=== PATIENT | male | born 1945 | race Caucasian/White ===

== ENCOUNTER 2016-09-09 21:19 | Inpatient (IN) | payer MEDICARE, OTHER ==
[2016-09-09] MEDS ORDERED: Ondansetron INJ* 2 MG/ML VIAL IV ONE (21:52)
[2016-09-09] MEDS ORDERED: NS 0.9% 1000 ML* 1,000 ML IV ONE (21:52)
[2016-09-09 22:36] LABS: Hematocrit 44 % (42-52); Hemoglobin 14.5 g/dl (14.0-18.0); Mean Corpuscular HGB Conc 33 g/dl (31-36); Mean Corpuscular Hemoglobin 30 pg (27-31); Mean Corpuscular Volume 90 fL (80-94); Mean Platelet Volume 8 um3 (7.4-10.4); Red Blood Count 4.88 10^6/ul (4.0-5.4); Red Cell Distribution Width 15 % (10.5-15); White Blood Count 10.3 10^3/ul (3.5-10.8)
[2016-09-09 22:49] LABS: ALT 13 U/L (7-52); AST 21 U/L (13-39); Albumin 3.8 g/dL (3.2-5.2); Alkaline Phosphatase 134 U/L (34-104); Anion Gap 2 mmol/L (2-11); BUN/Creatinine Ratio 21.3 (8-20); Blood Urea Nitrogen 16 mg/dL (6-24); C Reactive Protein 35.47 mg/L (< 5.00); CO2 Carbon Dioxide 34 mmol/L (22-32); Calcium 9.2 mg/dL (8.6-10.3); Chloride 100 mmol/L (101-111); EGFR African American 132.8 (>60); EGFR Non-African American 103.3 (>60); Globulin 3.3 g/dL (2-4); Glucose 74 mg/dL (70-100); Lipase < 10 U/L (11.0-82.0); Magnesium 1.9 mg/dL (1.9-2.7); Potassium 4.3 mmol/L (3.5-5.0); Sodium 136 mmol/L (133-145); Total Protein 7.1 g/dL (6.4-8.9)
--- NOTE | 2016-09-09 23:03 | ED ---
annalee Garrison Timothy, scribed for Stuart Brewer MD on 09/09/16 at 2154 . GI/ HPI - HPI Summary HPI Summary: Favian Cannon is a 71 yo male presenting to [facility] with 6/10 abd pain and blood in stool 7x since 1200 this morning. He denies any Hx of similar Sx. He also c/ o dizziness S/P BM's. He states he was nauseous last night, but not now. He states he has not been taking prescribed medications as he hs felt sick. He denies any Hx of similar Sx. His Mhx includes emphysema, GERD, and depression. - History of Current Complaint Chief Complaint: EDGIBleed Time Seen by Provider: 09/09/16 21:49 Stated Complaint: BLOOD IN STOOL Hx Obtained From: Patient Onset/Duration: Started Hours Ago Timing: Constant Severity: Moderate Current Severity: Moderate Pain Intensity: 6 Location of Pain: Diffuse Associated Signs and Symptoms: Positive: Dizziness, Nausea, Blood w/Stool, Abdominal Pain - Allergy/Home Medications Allergies/Adverse Reactions: Allergies Allergy/AdvReac Type Severity Reaction Status Date / Time No Known Allergies Allergy Verified 03/11/13 10:49 PMH/Surg Hx/FS Hx/Imm Hx Endocrine/Hematology History: Denies: Hx Sickle Cell Disease Cardiovascular History: Denies: Other Cardiovascular Problems/Disorders GI History: Reports: Hx Gastroesophageal Reflux Disease - ON MEDICATION History: Denies: Other Problems/Disorders Musculoskeletal History: Reports: Hx Arthritis Sensory History: Reports: Hx Cataracts - RIGHT EYE Denies: Hx Contacts or Glasses, Hx Hearing Aid Opthamlomology History: Reports: Hx Cataracts - RIGHT EYE Denies: Hx Contacts or Glasses Psychiatric History: Reports: Hx Depression - ON MEDICATION - Surgical History Surgery Procedure, Year, and Place: LEFT EYE CATARACT - 7 YEARS AGO [facility] [place], [place] Hx Anesthesia Reactions: No Infectious Disease History: No Infectious Disease History: Denies: Traveled Outside the [place] in Last 30 Days - Family History Known Family History: Positive: Cardiac Disease, Hypertension Negative: Diabetes - Social History Substance Use Type: Reports: None Review of Systems Constitutional: Negative Eyes: Negative ENT: Negative Cardiovascular: Negative Respiratory: Negative Positive: Abdominal Pain, Nausea, Other - blood in stool Genitourinary: Negative Musculoskeletal: Negative Skin: Negative Neurological: Other - dizziness Psychological: Normal All Other Systems Reviewed And Are Negative: Yes Physical Exam Triage Information Reviewed: Yes Vital Signs On Initial Exam: Initial Vitals Temp Pulse Resp BP Pulse Ox 98.3 F 74 20 142/72 93 09/09/16 21:22 09/09/16 21:22 09/09/16 21:22 09/09/16 21:22 09/09/16 21:22 Vital Signs Reviewed: Yes Appearance: Positive: Well-Appearing, No Pain Distress Skin: Positive: Warm Head/Face: Positive: Normal Head/Face Inspection Eyes: Positive: TAISHA ENT: Positive: Hearing grossly normal Neck: Positive: Supple, Nontender Respiratory/Lung Sounds: Positive: Decreased Breath Sounds Cardiovascular: Positive: RRR Abdomen Description: Positive: Nontender, Soft Bowel Sounds: Positive: Present, Other - guaic pos Musculoskeletal: Positive: Strength/ROM Intact Neurological: Positive: Sensory/Motor Intact Diagnostics - Vital Signs Vital Signs Temp Pulse Resp BP Pulse Ox 09/09/16 21:22 98.3 F 74 20 142/72 93 - Laboratory Lab Results: Lab Results 09/09/16 09/09/16 09/09/16 Range/Units 22:29 22:29 22:29 WBC 10.3 (3.5-10.8) 10^3/ul RBC 4.88 (4.0-5.4) 10^6/ul Hgb 14.5 (14.0-18.0) g/dl Hct 44 (42-52) % MCV 90 (80-94) fL MCH 30 (27-31) pg MCHC 33 (31-36) g/dl RDW 15 (10.5-15) % Plt Count 180 (150-450) 10^3/ul MPV 8 (7.4-10.4) um3 Neut % (Auto) 73.5 (38-83) % Lymph % (Auto) 16.8 L (25-47) % Jenkins % (Auto) 6.5 (1-9) % Eos % (Auto) 2.3 (0-6) % Baso % (Auto) 0.9 (0-2) % Absolute Neuts (auto) 7.5 (1.5-7.7) 10^3/ul Absolute Lymphs (auto) 1.7 (1.0-4.8) 10^3/ul Absolute Monos (auto) 0.7 (0-0.8) 10^3/ul Absolute Eos (auto) 0.2 (0-0.6) 10^3/ul Absolute Basos (auto) 0.1 (0-0.2) 10^3/ul Absolute Nucleated RBC 0 10^3/ul Nucleated RBC % 0 INR (Anticoag Therapy) 0.98 (0.89-1.11) Sodium 136 (133-145) mmol/L Potassium 4.3 (3.5-5.0) mmol/L Chloride 100 L (101-111) mmol/L Carbon Dioxide 34 H (22-32) mmol/L Anion Gap 2 (2-11) mmol/L BUN 16 (6-24) mg/dL Creatinine 0.75 (0.67-1.17) mg/dL Est GFR ( Amer) 132.8 (>60) Est GFR (Non-Af Amer) 103.3 (>60) BUN/Creatinine Ratio 21.3 H (8-20) Glucose 74 (70-100) mg/dL Lactic Acid (0.5-2.0) mmol/L Calcium 9.2 (8.6-10.3) mg/dL Magnesium 1.9 (1.9-2.7) mg/dL Total Bilirubin 0.40 (0.2-1.0) mg/dL AST 21 (13-39) U/L ALT 13 (7-52) U/L Alkaline Phosphatase 134 H (34-104) U/L C-Reactive Protein 35.47 H (< 5.00) mg/L Total Protein 7.1 (6.4-8.9) g/dL Albumin 3.8 (3.2-5.2) g/dL Globulin 3.3 (2-4) g/dL Albumin/Globulin Ratio 1.2 (1-3) Lipase < 10 L (11.0-82.0) U/L Blood Type Antibody Screen 09/09/16 09/09/16 Range/Units 22:29 22:29 WBC (3.5-10.8) 10^3/ul RBC (4.0-5.4) 10^6/ul Hgb (14.0-18.0) g/dl Hct (42-52) % MCV (80-94) fL MCH (27-31) pg MCHC (31-36) g/dl RDW (10.5-15) % Plt Count (150-450) 10^3/ul MPV (7.4-10.4) um3 Neut % (Auto) (38-83) % Lymph % (Auto) (25-47) % Jenkins % (Auto) (1-9) % Eos % (Auto) (0-6) % Baso % (Auto) (0-2) % Absolute Neuts (auto) (1.5-7.7) 10^3/ul Absolute Lymphs (auto) (1.0-4.8) 10^3/ul Absolute Monos (auto) (0-0.8) 10^3/ul Absolute Eos (auto) (0-0.6) 10^3/ul Absolute Basos (auto) (0-0.2) 10^3/ul Absolute Nucleated RBC 10^3/ul Nucleated RBC % INR (Anticoag Therapy) (0.89-1.11) Sodium (133-145) mmol/L Potassium (3.5-5.0) mmol/L Chloride (101-111) mmol/L Carbon Dioxide (22-32) mmol/L Anion Gap (2-11) mmol/L BUN (6-24) mg/dL Creatinine (0.67-1.17) mg/dL Est GFR ( Amer) (>60) Est GFR (Non-Af Amer) (>60) BUN/Creatinine Ratio (8-20) Glucose (70-100) mg/dL Lactic Acid 1.0 (0.5-2.0) mmol/L Calcium (8.6-10.3) mg/dL Magnesium (1.9-2.7) mg/dL Total Bilirubin (0.2-1.0) mg/dL AST (13-39) U/L ALT (7-52) U/L Alkaline Phosphatase (34-104) U/L C-Reactive Protein (< 5.00) mg/L Total Protein (6.4-8.9) g/dL Albumin (3.2-5.2) g/dL Globulin (2-4) g/dL Albumin/Globulin Ratio (1-3) Lipase (11.0-82.0) U/L Blood Type O Negative Antibody Screen Negative Result Diagrams: 09/09/16 22:29 09/09/16 22:29 Lab Statement: Any lab studies that have been ordered have been reviewed, and results considered in the medical decision making process. - Radiology CXR Xray Interpretation: Positive (See Comments) - Hyperinflation consistent with COPD Radiology Interpretation Completed By: ED Physician Re-Evaluation - Re-Evaluation First Eval Re-Evaluation Time: 02:55 Change: Unchanged Comment: Discussed current course of Tx and disposition with Pt. Pt is agreeable. GIGU Course/Dx - Course Assessment/Plan: Favian Cannon is a 71 yo male presenting to [facility] with blood in stool and 6/10 abdominal pain since 1200 today. After review of his lab work and discussion with Dr. Bajwa, he will be admitted to [facility] [place] [place]. - Diagnoses Provider Diagnoses: COPD exacerbation, GI bleed - Physician Notifications Discussed Care Of Patient With: 0250 - [facility] - Discussed Pt condition, agrees to admit Pt. Instructed by Provider To: Admit As Inpatient - Critical Care Time Critical Care Time: 30-74 min Discharge - Discharge Plan Condition: Fair Disposition: ADMITTED TO [facility] Referrals: Luis E Garcia MD [Primary Care Provider] - The documentation as recorded by the annalee muniz Timothy accurately reflects the service I personally performed and the decisions made by me, Stuart Brewer MD.
[2016-09-10 00:52] LABS: PCO2 Arterial 59 mmHg (35-45)
[2016-09-10] MEDS ORDERED: methylPREDNISolone 125 MG* 2 ML VIAL IV ONE (00:55)
[2016-09-10] MEDS: Albuterol/Ipratropium NEB.SOL* Albuterol 2.5 MG/Ipratropium 0.5 MG 3 ML INH ONE ×2 (01:01→03:00)
[2016-09-10 02:50] LABS: PCO2 Arterial 57 mmHg (35-45)
[2016-09-10] MEDS ORDERED: Albuterol/Ipratropium NEB.SOL* Albuterol 2.5 MG/Ipratropium 0.5 MG 3 ML ONE (02:56)
[2016-09-10] MEDS ORDERED: Albuterol/Ipratropium NEB.SOL* Albuterol 2.5 MG/Ipratropium 0.5 MG 3 ML INH ONE (03:04)
[2016-09-10] MEDS ORDERED: Acetaminophen TAB* 325 MG PO PRN (04:48)
[2016-09-10] MEDS ORDERED: Albuterol/Ipratropium NEB.SOL* Albuterol 2.5 MG/Ipratropium 0.5 MG 3 ML INH PRN (04:49)
[2016-09-10] MEDS: Heparin VIAL(*) 5000 UNITS/ML VIAL (FIVE THOUSAND) SUBCUT SCH ×2 (06:13→14:22)
[2016-09-10 06:47] LABS: Hematocrit 42 % (42-52); Hemoglobin 13.7 g/dl (14.0-18.0)
--- NOTE | 2016-09-10 08:00 | RAD ---
INDICATION: Shortness of breath. COMPARISON: Chest x-ray dated January 08, 2006 TECHNIQUE: PA and lateral views of the chest were obtained. FINDINGS: The heart and mediastinum are normal in size and contour. There is mild calcification overlying the arch of the aorta. Subcentimeter dense foci overlying the right greater than left skylar are most consistent with calcified granulomas. Otherwise the lungs are grossly clear. There is no evidence of large pleural effusion. Visualized bones are normal for the patient's age. There is no radiographic evidence of free air beneath the diaphragm IMPRESSION: No radiographic evidence of acute cardiopulmonary disease.
[2016-09-10 08:20] LABS: Urine Bilirubin Negative (Negative); Urine Glucose Negative (Negative); Urine Nitrite Negative (Negative)
[2016-09-10] MEDS: Gabapentin CAP(*) 300 MG PO SCH (08:33)
[2016-09-10] MEDS: Omeprazole CAP* 20 MG PO SCH (08:33)
[2016-09-10] MEDS: LORazepam TAB(*) 0.5 MG PO SCH (08:34)
[2016-09-10] MEDS: Citalopram TAB* 40 MG PO SCH (08:34)
[2016-09-10] MEDS ORDERED: Methadone TAB* 10 MG PO SCH (09:00)
--- NOTE | 2016-09-10 10:08 | HP ---
DATE OF ADMISSION: 09/10/2016 CHIEF COMPLAINT: Bright red blood from his stool. HISTORY OF PRESENT ILLNESS: The patient is a 71-year-old gentleman who said this morning he was having bowel movements when he noticed blood in his stool. Apparently, he had 6 or 7 bowel movements with quite a bit of blood in them. He became concerned so he came to the ER. He also had associated lower abdominal pain, but no nausea or vomiting. He felt chills, but does not think he had a fever. He notes he has had a decreased appetite as well today. The last time he ate was 7:30 the night before and was only a bowl of cereal. He does get colonoscopies regularly. In the ED, the patient was evaluated and did not have any problems with his bowel movements while here and his hemoglobin was 14.5. Initially, they did not think he was going to need to stay , but then noticed his oxygen saturation was quite low in the low 70s. He responded well to supplemental oxygen, however, and apparently he was also wheezing. The patient does smoke quite a bit. Despite nebulizer treatments in August, the patient was still somewhat hypoxemic and is being admitted for same. PAST MEDICAL HISTORY: Significant for chronic pain syndrome, depression, GERD, COPD. PAST SURGICAL HISTORY: Significant for condyloma excision in the right inguinal area and cataracts bilaterally. ALLERGIES: He has no known drug allergies. CURRENT MEDICATIONS: Omeprazole 20 mg daily, methadone 20 mg daily, lorazepam 0.5 mg daily, gabapentin 300 mg daily, and citalopram 40 mg daily, albuterol inhaler unknown dose and frequency, as well as Advair inhaler unknown dose and frequency. FAMILY HISTORY: Reviewed and noncontributory. SOCIAL HISTORY: Still smokes a pack per day, but denies need for nicotine patch at this time. Drinks alcohol but not excessively. No recreational drug use. 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 He is a . He has 2 children. His son, Favian Cannon, is his healthcare proxy. REVIEW OF SYSTEMS: A 14-point review of systems was completed with the patient. All pertinent positives and negatives are in the history of present illness, otherwise is negative. PHYSICAL EXAMINATION GENERAL: A pleasant gentleman, lying in bed, in no acute distress. VITAL SIGNS: Blood pressure 117/72, pulse ox is now 96% on 3 L. Respiratory rate 18 breaths per minute, heart rate 80 beats per minute, temperature 98.2 degrees. HEENT: Normocephalic, atraumatic. Pupils are equal, round, and reactive to light. Moist mucous membranes. NECK: Supple. No JVD, bruits, or palpable thyroid. CHEST: He has decreased breath sounds with some minimal bilateral wheezing. CARDIOVASCULAR: S1, S2, appreciated. Regular rate and rhythm. ABDOMEN: Positive bowel sounds in all 4 quadrants. Soft, nontender, and nondistended. No hepatosplenomegaly. EXTREMITIES: No cyanosis, clubbing, or edema; +2 peripheral pulses bilaterally. NEURO: Alert and oriented x3. Moves all extremities. SKIN: No rashes or abnormalities. DIAGNOSTIC STUDIES/LAB DATA: White count 10.3, hemoglobin 14.5, hematocrit 44 , platelets 180. Sodium 136, potassium 4.3, chloride 102, CO2 34, BUN 16, creatinine 0.75, glucose is 74. INR is 0.98. Blood gases were 7.37 with a pCO2 of 57, and PO2 of 46. Chest x-ray shows hyperaeration but no evidence of infiltrates, some bilateral lymphadenopathy. This is a preliminary reading. ASSESSMENT AND PLAN: 1. GI bleed. The patient is not anemic despite several bloody bowel movements. It very well could just be a hemorrhoid. We will monitor his H and H and get the records of his last colonoscopy and upper endoscopy before contacting GI. If his blood count does not drop that much more, he probably does not need intervention. 2. COPD. The patient is wheezing somewhat. We will put him on Solu-Medrol 40 IV q.12 h. and nebulizers, but he will probably likely end up needing home oxygen. 3. Depression, stable. Continue current regimen. 4. Chronic pain. Continue methadone and gabapentin. 5. GERD. Continue omeprazole. 6. DVT prophylaxis. Heparin subcu. 7. FEN. Regular diet. 8. The patient is a full code. TIME SPENT: Over 75 minutes was spent on this H and P; more than 40 minutes of which was spent in direct [id number] contact with the patient in evaluation, physical exam, counseling, and coordination of care. CC: Dr. Luis E Garcia* [id number]/[facility] #: [id number] [facility]
[2016-09-10 13:09] LABS: Hematocrit 43 % (42-52); Hemoglobin 13.8 g/dl (14.0-18.0)
[2016-09-10] MEDS: methylPREDNISolone SOD 40 MG* 1 ML VIAL IV SCH (14:22)
--- NOTE | 2016-09-10 16:17 | PN ---
Subjective Date of Service: 09/10/16 Interval History: Patient seen and examined at bedside. Pt states that he continues to have some rectal bleeding, he denies hemorrhoids, but reports straining to move his bowels. Denies fever, chills, shortness of breath, chest discomfort, N/V/D. Pt doesn't wean O2 at home, but is requiring supplemental O2 here. Family History: Unchanged from Admission Social History: Unchanged from Admission Past Medical History: Unchanged from Admission Objective Active Medications: Acetaminophen (Tylenol Tab*) 650 mg PO Q4H PRN Reason: FEVER/PAIN Albuterol/Ipratropium (Duoneb Neb.Fern*) 1 neb INH Q2H PRN Reason: SOB/WHEEZING Citalopram Hydrobromide (Celexa Tab*) 40 mg PO DAILY BETO Gabapentin (Neurontin Cap(*)) 300 mg PO DAILY BETO Heparin Sodium (Porcine) (Heparin Vial(*)) 5,000 units SUBCUT Q8HR BETO Lorazepam (Ativan Tab(*)) 0.5 mg PO DAILY BETO Methadone HCl (Dolophine Tab*) 20 mg PO DAILY [facility] Methylprednisolone Sodium Succinate (Solu-Medrol*) 40 mg IV Q12H BETO Omeprazole (Prilosec Cap*) 20 mg PO DAILY@0730 [facility] Vital Signs 09/10/16 09/10/16 09/10/16 05:00 05:20 05:25 Temperature 99.6 F Pulse Rate 90 90 Respiratory Rate Blood Pressure 134/69 (mmHg) O2 Sat by Pulse 94 95 Oximetry 09/10/16 09/10/16 09/10/16 07:25 08:32 08:33 Temperature 99.8 F Pulse Rate 93 Respiratory 16 17 17 Rate Blood Pressure 118/52 (mmHg) O2 Sat by Pulse 95 Oximetry 09/10/16 09/10/16 09/10/16 10:34 11:00 11:51 Temperature Pulse Rate 90 80 Respiratory 14 16 16 Rate Blood Pressure (mmHg) O2 Sat by Pulse 95 96 Oximetry 09/10/16 15:15 Temperature 98.0 F Pulse Rate 79 Respiratory Rate Blood Pressure 119/64 (mmHg) O2 Sat by Pulse 98 Oximetry Oxygen Devices in Use Now: Nasal Cannula - 2.5L Appearance: NAD, sitting up in bed Eyes: No Scleral Icterus, PERRLA Ears/Nose/Mouth/Throat: NL Teeth, Lips, Gums, Mucous Membranes Moist Neck: NL Appearance and Movements; NL JVP, Trachea Midline Respiratory: Symmetrical Chest Expansion and Respiratory Effort, - - Lung sounds with exp wheezing bilateral Cardiovascular: NL Sounds; No Murmurs; No JVD, RRR Abdominal: NL Sounds; No Tenderness; No Distention, - - No signs of blood on external rectal exam. Extremities: No Edema Skin: No Rash or Ulcers Neurological: Alert and Oriented x 3, NL Muscle Strength and Tone Lines/Tubes/Other Access: Clean, Dry and Intact Peripheral IV - site benign Nutrition: Taking PO's Result Diagrams: 09/10/16 18:44 09/09/16 22:29 Additional Lab and Data: Assess/Plan/Problems-Billing Assessment: Mr. Cannon is a 71 yo male with PMH significant for chronic pain, COPD, GERD, and depression who presented to the emergency room with concern for a GI bleed. - Patient Problems (1) GI bleed Code(s): K92.2 - GASTROINTESTINAL HEMORRHAGE, UNSPECIFIED SNOMED Code(s): 43868722 Comment: - HH stable - Suspect this could be caused by a hemorrhoid - Continue to trend HH (2) COPD exacerbation Code(s): J44.1 - CHRONIC OBSTRUCTIVE PULMONARY DISEASE W (ACUTE) EXACERBATION SNOMED Code(s): 549463700 Comment: - Lung sounds with wheezing bilateral - Pt is requiring O2 supplemntation to keep sats > 90% - Continue Spiriva and Albuterol Inhalers PRN (3) Depression Code(s): F32.9 - MAJOR DEPRESSIVE DISORDER, SINGLE EPISODE, UNSPECIFIED SNOMED Code(s): 89363088 Comment: - Continue home medication regime (4) Chronic pain Code(s): G89.29 - OTHER CHRONIC PAIN SNOMED Code(s): 63274941 Comment: - Continue metadone and gabapentin (5) GERD (gastroesophageal reflux disease) Code(s): K21.9 - GASTRO-ESOPHAGEAL REFLUX DISEASE WITHOUT ESOPHAGITIS SNOMED Code(s): 545157626 Comment: - Continue omeprazole (6) HTN (hypertension) Current Visit: Yes Status: Acute Code(s): I10 - ESSENTIAL (PRIMARY) HYPERTENSION SNOMED Code(s): 58797288 Comment: - Controlled, SBP 110-130's - Continue Lisinopril (7) Hypothyroidism Code(s): E03.9 - HYPOTHYROIDISM, UNSPECIFIED SNOMED Code(s): 44829910 Comment: - Continue Levothyroxine (8) DVT prophylaxis Code(s): ZFS1518 - SNOMED Code(s): 205273238 Comment: - SCDs - Chemical DVT prophylaxis contraindicated in the setting of a possible GI bleed (9) Full code status Code(s): Z78.9 - OTHER SPECIFIED HEALTH STATUS SNOMED Code(s): 544517356 Status and Disposition: OBV. Discharge to home when medically stable.
[2016-09-10 19:00] LABS: Hematocrit 43 % (42-52); Hemoglobin 13.9 g/dl (14.0-18.0)
[2016-09-10] MEDS: Methadone TAB* 10 MG PO SCH (21:18)
[2016-09-10] MEDS: Tamsulosin CAP* 0.4 MG PO SCH (21:19)
[2016-09-10] MEDS ORDERED: LORazepam TAB(*) 0.5 MG PO ONE (22:40)
[2016-09-11] MEDS: methylPREDNISolone SOD 40 MG* 1 ML VIAL IV SCH ×2 (02:06→17:05)
[2016-09-11] MEDS: Albuterol 2.5 MG/3 ML NEB.SOL* (0.083%) INH PRN (05:00)
[2016-09-11] MEDS: Levothyroxine TAB* 50 MCG TAB PO SCH (05:59)
[2016-09-11 06:49] LABS: Hematocrit 40 % (42-52); Hemoglobin 13.4 g/dl (14.0-18.0)
[2016-09-11 07:09] LABS: BUN/Creatinine Ratio 28.1 (8-20); Calcium 9.4 mg/dL (8.6-10.3); EGFR African American 159.5 (>60); Potassium 4.2 mmol/L (3.5-5.0)
[2016-09-11] MEDS: Tiotropium CAP.INH* CAP.INH/18 MCG (USE ORDER SET !) INH SCH (08:28)
[2016-09-11] MEDS ORDERED: Spiriva Inhaler DEVICE* 1 EACH DEVICE INH ONE (09:00)
[2016-09-11] MEDS ORDERED: Methadone TAB* 10 MG PO SCH (09:00)
[2016-09-11] MEDS: Lisinopril TAB* 10 MG PO SCH (09:29)
[2016-09-11] MEDS: Methadone TAB* 10 MG PO SCH ×2 (09:29→21:33)
[2016-09-11] MEDS: Omeprazole CAP* 20 MG PO SCH (09:30)
[2016-09-11] MEDS: LORazepam TAB(*) 0.5 MG PO SCH (09:30)
[2016-09-11] MEDS: Citalopram TAB* 40 MG PO SCH (09:30)
[2016-09-11] MEDS: Gabapentin CAP(*) 300 MG PO SCH (09:31)
[2016-09-11] MEDS ORDERED: LORazepam TAB(*) 1 MG PO PRN (16:58)
--- NOTE | 2016-09-11 17:56 | PN ---
Subjective Date of Service: 09/11/16 Interval History: Patient seen and examined at bedside. Patient feels that his breathing is at his baseline shortness of breath. Denies fever, chills, chest discomfort, N/V/D , further rectal bleeding. Pt has not moved his bowels since admission. Pt doesn 't want to wean oxygen during the day, due to feeling like it would get in the way at work. Family History: Unchanged from Admission Social History: Unchanged from Admission Past Medical History: Unchanged from Admission Objective Active Medications: Acetaminophen (Tylenol Tab*) 650 mg PO Q4H PRN Reason: FEVER/PAIN Albuterol (Ventolin 2.5 Mg/3 Ml Neb.Fern*) 2.5 mg INH Q2H PRN Reason: SOB/ WHEEZING Citalopram Hydrobromide (Celexa Tab*) 40 mg PO DAILY BETO Gabapentin (Neurontin Cap(*)) 300 mg PO DAILY BETO Levothyroxine Sodium (Synthroid Tab*) 50 mcg PO 0600 BETO Lisinopril (Prinivil Tab*) 20 mg PO DAILY BETO Lorazepam (Ativan Tab(*)) 1 mg PO Q6H PRN Reason: ANXIETY Methadone HCl (Dolophine Tab*) 10 mg PO BID BETO Methylprednisolone Sodium Succinate (Solu-Medrol*) 40 mg IV Q12H BETO Omeprazole (Prilosec Cap*) 20 mg PO DAILY@0730 BETO Tamsulosin HCl (Flomax Cap*) 0.4 mg PO BEDTIME BETO Tiotropium Sterling (Spiriva Cap.Inh*) 1 cap INH DAILY BETO Vital Signs 09/10/16 09/10/16 09/10/16 19:30 21:18 22:00 Temperature 99.3 F Pulse Rate 74 Respiratory 18 18 16 Rate Blood Pressure 146/77 (mmHg) O2 Sat by Pulse 97 Oximetry 09/10/16 09/10/16 09/10/16 22:16 22:28 23:02 Temperature 97.8 F 97.8 F Pulse Rate 76 76 Respiratory 18 18 20 Rate Blood Pressure 147/76 147/76 (mmHg) O2 Sat by Pulse 95 95 Oximetry 09/10/16 09/10/16 09/11/16 23:13 23:32 01:02 Temperature 98.5 F Pulse Rate 71 Respiratory 20 16 18 Rate Blood Pressure 141/75 (mmHg) O2 Sat by Pulse 98 Oximetry 09/11/16 09/11/16 09/11/16 03:31 05:01 07:40 Temperature 97.9 F 97.9 F Pulse Rate 70 64 67 Respiratory 16 16 18 Rate Blood Pressure 137/52 122/45 (mmHg) O2 Sat by Pulse 97 97 97 Oximetry 09/11/16 09/11/16 09/11/16 08:00 09:29 09:30 Temperature Pulse Rate Respiratory 16 16 16 Rate Blood Pressure (mmHg) O2 Sat by Pulse Oximetry 09/11/16 09/11/16 09/11/16 09:31 11:29 12:13 Temperature 99.3 F Pulse Rate 80 Respiratory 16 14 22 Rate Blood Pressure 116/59 (mmHg) O2 Sat by Pulse 93 Oximetry Oxygen Devices in Use Now: None Appearance: NAD, sitting up on the side of the bed Eyes: No Scleral Icterus, PERRLA Ears/Nose/Mouth/Throat: NL Teeth, Lips, Gums, Mucous Membranes Moist Neck: NL Appearance and Movements; NL JVP, Trachea Midline Respiratory: Symmetrical Chest Expansion and Respiratory Effort, - - Exp wheeze throughout Cardiovascular: NL Sounds; No Murmurs; No JVD, RRR Abdominal: NL Sounds; No Tenderness; No Distention Extremities: No Edema Skin: No Rash or Ulcers Neurological: Alert and Oriented x 3, NL Muscle Strength and Tone Lines/Tubes/Other Access: Clean, Dry and Intact Peripheral IV - site benign Nutrition: Taking PO's Result Diagrams: 09/11/16 06:19 09/11/16 06:19 Additional Lab and Data: Assess/Plan/Problems-Billing Assessment: Mr. Cannon is a 71 yo male with PMH significant for chronic pain, COPD, GERD, and depression who presented to the emergency room with concern for a GI bleed. - Patient Problems (1) GI bleed Code(s): K92.2 - GASTROINTESTINAL HEMORRHAGE, UNSPECIFIED SNOMED Code(s): 51972354 Comment: - HH stable - Suspect this could be caused by a hemorrhoid (2) COPD exacerbation Code(s): J44.1 - CHRONIC OBSTRUCTIVE PULMONARY DISEASE W (ACUTE) EXACERBATION SNOMED Code(s): 667464283 Comment: - Lung sounds with wheezing bilateral - Pt is requiring O2 supplementation to keep sats > 90% when ambulating - Continue Spiriva and Albuterol Inhalers PRN - Will start dulera MDI - May benefit from a Pulmonology consult outpatient (3) Depression Code(s): F32.9 - MAJOR DEPRESSIVE DISORDER, SINGLE EPISODE, UNSPECIFIED SNOMED Code(s): 40779628 Comment: - Continue home medication regime (4) Chronic pain Code(s): G89.29 - OTHER CHRONIC PAIN SNOMED Code(s): 55713062 Comment: - Continue metadone and gabapentin (5) GERD (gastroesophageal reflux disease) Code(s): K21.9 - GASTRO-ESOPHAGEAL REFLUX DISEASE WITHOUT ESOPHAGITIS SNOMED Code(s): 030795867 Comment: - Continue omeprazole (6) HTN (hypertension) Current Visit: Yes Status: Acute Code(s): I10 - ESSENTIAL (PRIMARY) HYPERTENSION SNOMED Code(s): 16892431 Comment: - Controlled, SBP 110-130's - Continue Lisinopril (7) Hypothyroidism Code(s): E03.9 - HYPOTHYROIDISM, UNSPECIFIED SNOMED Code(s): 95063806 Comment: - Continue Levothyroxine (8) DVT prophylaxis Code(s): CXT8762 - SNOMED Code(s): 032244809 Comment: - SCDs - Chemical DVT prophylaxis contraindicated in the setting of a possible GI bleed (9) Full code status Code(s): Z78.9 - OTHER SPECIFIED HEALTH STATUS SNOMED Code(s): 210990430 Status and Disposition: OBV to Inpatient. Discharge to home when medically stable. Possibly in the AM.
[2016-09-11] MEDS: Tamsulosin CAP* 0.4 MG PO SCH (21:33)
[2016-09-11] MEDS: Mometasone/Formoter 200/5 MDI INH SCH (21:37)
[2016-09-12] MEDS: Levothyroxine TAB* 50 MCG TAB PO SCH (06:14)
[2016-09-12] MEDS: Citalopram TAB* 40 MG PO SCH (08:09)
[2016-09-12] MEDS: Methadone TAB* 10 MG PO SCH (08:09)
[2016-09-12] MEDS: Gabapentin CAP(*) 300 MG PO SCH (08:09)
[2016-09-12] MEDS: Omeprazole CAP* 20 MG PO SCH (08:09)
[2016-09-12] MEDS: Lisinopril TAB* 10 MG PO SCH (08:10)
[2016-09-12] MEDS: Tiotropium CAP.INH* CAP.INH/18 MCG (USE ORDER SET !) INH SCH (08:11)
[2016-09-12] MEDS: Mometasone/Formoter 200/5 MDI INH SCH (08:12)
[2016-09-12] MEDS ORDERED: predniSONE TAB* 20 MG PO SCH (09:00)
[2016-09-12 12:10] VITALS: BP 122/63
--- NOTE | 2016-09-12 13:33 | PN ---
Subjective Date of Service: 09/12/16 Interval History: Patient seen and examined at bedside. Pt states that his breathing is about at this baseline. He reports some green mucous production, feels like he may have a head cold. Denies fever, chills, chest discomfort, N/V/D. Pt has not moved since bowels since admission, no further bleeding noted. Pt has been able to ambulate in the halls, noted to have O2 sats 81-87% on room air with ambulation. Pt was able to ambulate 1x around the unit. Family History: Unchanged from Admission Social History: Unchanged from Admission Past Medical History: Unchanged from Admission Objective Active Medications: Acetaminophen (Tylenol Tab*) 650 mg PO Q4H PRN Reason: FEVER/PAIN Albuterol (Ventolin 2.5 Mg/3 Ml Neb.Fern*) 2.5 mg INH Q2H PRN Reason: SOB/ WHEEZING Citalopram Hydrobromide (Celexa Tab*) 40 mg PO DAILY [facility] Gabapentin (Neurontin Cap(*)) 300 mg PO DAILY BETO Levothyroxine Sodium (Synthroid Tab*) 50 mcg PO 0600 BETO Lisinopril (Prinivil Tab*) 20 mg PO DAILY BETO Lorazepam (Ativan Tab(*)) 1 mg PO Q6H PRN Reason: ANXIETY Methadone HCl (Dolophine Tab*) 10 mg PO BID BETO Mometasone Furoate/Formoterol Fumar (Dulera 200/5 Mdi*) 2 puff INH BID BETO Omeprazole (Prilosec Cap*) 20 mg PO DAILY@0730 BETO Prednisone (Deltasone Tab*) 40 mg PO DAILY BETO Tamsulosin HCl (Flomax Cap*) 0.4 mg PO BEDTIME BETO Tiotropium Economy (Spiriva Cap.Inh*) 1 cap INH DAILY BETO Vital Signs 09/11/16 09/11/16 09/11/16 15:21 19:18 20:00 Temperature 98.2 F 98.0 F Pulse Rate 71 75 Respiratory 22 15 20 Rate Blood Pressure 126/68 134/63 (mmHg) O2 Sat by Pulse 96 93 Oximetry 09/11/16 09/12/16 09/12/16 23:36 03:15 07:10 Temperature 98.4 F 97.8 F 97.6 F Pulse Rate 65 68 59 Respiratory 16 16 18 Rate Blood Pressure 142/65 130/63 144/56 (mmHg) O2 Sat by Pulse 97 96 97 Oximetry 09/12/16 09/12/16 09/12/16 10:25 11:48 12:09 Temperature 98.2 F Pulse Rate 61 62 Respiratory 16 16 Rate Blood Pressure 122/63 (mmHg) O2 Sat by Pulse 84 95 96 Oximetry Oxygen Devices in Use Now: Nasal Cannula - 2L Appearance: NAD, sitting up on the side of the bed Eyes: No Scleral Icterus, PERRLA Ears/Nose/Mouth/Throat: NL Teeth, Lips, Gums, Mucous Membranes Moist Neck: NL Appearance and Movements; NL JVP, Trachea Midline Respiratory: Symmetrical Chest Expansion and Respiratory Effort, Clear to Auscultation - , diminished Cardiovascular: NL Sounds; No Murmurs; No JVD, RRR Abdominal: NL Sounds; No Tenderness; No Distention Extremities: No Edema Skin: No Rash or Ulcers Neurological: Alert and Oriented x 3, NL Muscle Strength and Tone Lines/Tubes/Other Access: Clean, Dry and Intact Peripheral IV - site benign Nutrition: Taking PO's Result Diagrams: 09/11/16 06:19 09/11/16 06:19 Additional Lab and Data: Assess/Plan/Problems-Billing Assessment: Mr. Cannon is a 71 yo male with PMH significant for chronic pain, COPD, GERD, and depression who presented to the emergency room with concern for a GI bleed. - Patient Problems (1) GI bleed Code(s): K92.2 - GASTROINTESTINAL HEMORRHAGE, UNSPECIFIED SNOMED Code(s): 99357839 Comment: - HH stable - Suspect this could be caused by a hemorrhoid (2) COPD exacerbation Code(s): J44.1 - CHRONIC OBSTRUCTIVE PULMONARY DISEASE W (ACUTE) EXACERBATION SNOMED Code(s): 009594523 Comment: - Lung sounds clear, diminished today - Pt is requiring O2 supplementation to keep sats > 90% when ambulating - Continue Spiriva, dulera, and Albuterol Inhalers PRN - May benefit from a Pulmonology consult outpatient (3) Depression Code(s): F32.9 - MAJOR DEPRESSIVE DISORDER, SINGLE EPISODE, UNSPECIFIED SNOMED Code(s): 39986136 Comment: - Continue home medication regime (4) Chronic pain Code(s): G89.29 - OTHER CHRONIC PAIN SNOMED Code(s): 21841868 Comment: - Continue metadone and gabapentin (5) GERD (gastroesophageal reflux disease) Code(s): K21.9 - GASTRO-ESOPHAGEAL REFLUX DISEASE WITHOUT ESOPHAGITIS SNOMED Code(s): 495856637 Comment: - Continue omeprazole (6) HTN (hypertension) Status: Acute Code(s): I10 - ESSENTIAL (PRIMARY) HYPERTENSION SNOMED Code(s) : 89734522 Comment: - Controlled, SBP 120-140's - Continue Lisinopril (7) Hypothyroidism Code(s): E03.9 - HYPOTHYROIDISM, UNSPECIFIED SNOMED Code(s): 27465383 Comment: - Continue Levothyroxine (8) DVT prophylaxis Code(s): KYN1033 - SNOMED Code(s): 495402841 (9) Full code status Code(s): Z78.9 - OTHER SPECIFIED HEALTH STATUS SNOMED Code(s): 943473914 Status and Disposition: Inpatient. Stable for discharge to home.
[2016-09-12] MEDS: Albuterol 2.5 MG/3 ML NEB.SOL* (0.083%) INH PRN (13:48)
--- NOTE | 2016-09-13 02:11 | DS ---
DISCHARGE SUMMARY: DATE OF ADMISSION: 09/10/16 DATE OF DISCHARGE: 09/12/16 ATTENDING PHYSICIAN: Keith Leal MD *(dictated by Jacquelin Haley NP) PRIMARY CARE PROVIDER: Luis E Garcia MD. PRIMARY DIAGNOSES: 1. Chronic obstructive pulmonary disease exacerbation. 2. GI bleed, suspect internal hemorrhoid. SECONDARY DIAGNOSES: 1. Depression. 2. Chronic pain. 3. Gastroesophageal reflux disease. STUDIES WHILE IN THE HOSPITAL: Chest x-ray on 09/09/16. Radiologist's impression: No radiographic evidence of acute cardiopulmonary disease. DISCHARGE MEDICATIONS: New home medications: 1. Dulera 200/5 MDI 2 puffs inhalation twice daily. 2. Spiriva 1 capsule inhalation daily. 3. Prednisone 40 mg for 3 days, 30 mg for 4 days, 20 mg for 4 days, 10 mg x4 days, then stop. Continued home medications: 1. Lorazepam 1 mg oral every 6 hours as needed for anxiety. 2. Celexa 40 mg oral daily. 3. Omeprazole 20 mg oral twice daily. 4. Methadone 10 mg oral twice daily. 5. Gabapentin 300 mg oral daily. 6. Tamsulosin 0.4 mg oral daily. 7. Lisinopril 20 mg oral daily. 8. Levothyroxine 50 mcg oral daily. 9. Lexapro 10 mg oral daily. 10. Colace 10 mg oral twice daily. 11. Aspirin 81 mg oral daily. 12. Albuterol sulfate HFA 1 to 2 puffs inhalation every 4 hours as needed for shortness of breath or wheeze. HISTORY OF PRESENT ILLNESS/HOSPITAL COURSE: Mr. Cannon is a 71-year-old male with a past medical history significant for chronic pain syndrome, depression, GERD and COPD, who presented to the emergency room with complaints of blood in his stool. The patient had reported having 6 to 7 bowel movements with a fair amount of blood in them. He became concerned, so he presented to the emergency room for further evaluation of his symptoms. The patient also reported associated lower abdominal pain with no nausea, vomiting and he reports chills, but no fever. The patient also reported a decrease in appetite. The patient reports following colonoscopy schedule. While in the emergency room, the patient was evaluated and found to be hypoxic with oxygen in the 70s. The patient responded well to supplemental oxygen and was also noted to have wheezing. The patient is a smoker. The patient was found to have a stable hemoglobin and hematocrit. His other labs were fairly unremarkable. The patient had blood gases that showed a pH of 7.35, pCO2 of 59 , pO2 of 54, bicarb of 28.4, O2 sat of 89.3 and base excess of 5.0. The patient had a repeat ABG showing pH of 7.37, pCO2 of 57, pO2 of 46, bicarb of 29 , O2 sat 84.8 and base excess of 5.9. Based on the patient's presentation, the hospitalists were asked to evaluate the patient for admission. While in the hospital, the patient had no further bowel movements and had no signs of further bleeding. The patient's hemoglobin and hematocrit were trended and remained stable during his stay. The patient was requiring supplemental oxygen at 2 L via nasal cannula. This was maintaining the patient' s O2 sats in the mid to high 90s. The patient was ambulated and found to have decreased oxygen saturations while walking. On the day of discharge, the patient's oxygen saturation was 81% to 86% on room air with ambulation in the chang. Suspect this represents acute on chronic hypoxic respiratory failure. During the patient's stay, he continued to have wheezing. He was started on Spiriva and Dulera. The patient had significant improvement in his wheezing. During his stay, he had also remained afebrile. He did report coughing up some thick mucus intermittently. The patient reported intermittent constipation and the need to strain while moving his bowels. It was felt that the straining resulted in irritation and that he could possibly have internal hemorrhoid. Mr. Cannon is stable for discharge to home today. Vital signs are as follows: Temperature 98.2, heart rate 62, respiratory rate 16, O2 sat 96% on 2 L via nasal cannula, blood pressure 122/63. DISCHARGE PLAN: Mr. Cannon will be discharged to home. Activity as tolerated. He has a regular diet. Due to the patient's hypoxic respiratory failure, he has been started on supplemental oxygen to wear 24 hours a day. As far as the patient's COPD exacerbation, he will be continued on prednisone steroid taper. The patient has also been started on Spiriva and Dulera inhalers and can continue his albuterol as needed. I recommend considering an outpatient consultation with Pulmonology to better control the patient's COPD. As far as the patient's possible GI bleed, I suspect this is related to an internal hemorrhoid. The patient reports some constipation and straining to move his bowels. He was encouraged not to strain his bowels, to drink plenty of fluids and to continue using a stool softener twice daily. If this does not help, we recommended him trying laxatives at home. As far as the patient's other medical conditions such as chronic pain, depression, and GERD, no changes have been made in his medications. The patient should be seen in followup by his primary care provider, Dr. Garcia. He has an appointment on 09/18/16 at 9: 20 a.m. This is a summarized report of a complex medical history and hospital stay. For further details, please see the entire medical record. TIME SPENT: Time for this discharge was 50 minutes; 25 minutes were spent face- to- face with the patient and family discussing discharge plans and instructions. CONDITION ON DISCHARGE: Stable. Reviewed by UMANG RIVERA 09/18/16 [id number] CC: Luis E Garcia MD * [id number]/[facility] #: [id number] CHRISTOPHER
== END 2016-09-12 15:25 | disposition home or self-care (01) | DRG 190 ==
LOC: ED 21:19 → MEDTELE 09-10 04:49 → SSU 09-10 22:06 → OBSVTOIN 09-11 09:00 → UNDODISIN 09-12 15:47
PROVIDERS: ADMIT Internal Medicine; ATTEND Hospitalist
DX: J44.1 Chronic obstructive pulmonary disease with (acute) exacerbation (principal); J96.21 Acute and chronic respiratory failure with hypoxia; Z99.81 Dependence on supplemental oxygen; K64.8 Other hemorrhoids; K21.9 Gastro-esophageal reflux disease without esophagitis; F32.9 Major depressive disorder, single episode, unspecified; M19.90 Unspecified osteoarthritis, unspecified site; Z82.49 Family history of ischemic heart disease and other diseases of the circulatory system; G89.4 Chronic pain syndrome; Z98.42 Cataract extraction status, left eye; Z98.41 Cataract extraction status, right eye; Z79.82 Long term (current) use of aspirin; K59.00 Constipation, unspecified; E03.9 Hypothyroidism, unspecified; I10 Essential (primary) hypertension; F17.200 Nicotine dependence, unspecified, uncomplicated
CPT/HCPCS: 36415; 36600; 71020; 80048; 80053; 81003; 82803; 83605; 83690; 83735; 85014; 85018; 85025; 85610; 86140; 86850; 86900; 86901; 94640; 94760; 99406; A9270-GY; J1644; J2405; J2920; J2930; J7512

== ENCOUNTER 2016-11-03 12:42 | Observation (INO) | payer MEDICARE ==
[2016-11-03] MEDS ORDERED: Azithromycin IV(*) 500 MG in NS 0.9% 250 ML* 250 ML IVPB ONE (13:29)
[2016-11-03] MEDS ORDERED: cefTRIAXone(*) 1 GM in NS 0.9% 50 ML* 50 ML IVPB ONE (13:29)
[2016-11-03] MEDS ORDERED: Azithromycin IV* 500 MG ADVAN VIAL IVPB ONE (13:38)
[2016-11-03] MEDS ORDERED: cefTRIAXone(*) 1 GM ADVAN ONE (13:39)
[2016-11-03] MEDS: NS 0.9% 1000 ML* 2,000 ML IV ONE (13:44)
[2016-11-03 13:57] LABS: Hematocrit 36 % (42-52); Hemoglobin 11.6 g/dl (14.0-18.0); Mean Corpuscular HGB Conc 33 g/dl (31-36); Mean Corpuscular Hemoglobin 29 pg (27-31); Mean Corpuscular Volume 90 fL (80-94); Mean Platelet Volume 8 um3 (7.4-10.4); Red Blood Count 3.96 10^6/ul (4.0-5.4); Red Cell Distribution Width 15 % (10.5-15); White Blood Count 17.3 10^3/ul (3.5-10.8)
[2016-11-03 13:58] LABS: Comments Flag Yes
[2016-11-03 13:59] LABS: Add Diff/Slide Review? Slide Review Added
[2016-11-03 14:09] LABS: Albumin 3.4 g/dL (3.2-5.2); BUN/Creatinine Ratio 20.8 (8-20); C Reactive Protein 405.97 mg/L (< 5.00); EGFR African American 42.3 (>60); EGFR Non-African American 32.9 (>60); Globulin 3.4 g/dL (2-4); Potassium 4.6 mmol/L (3.5-5.0); Total Bilirubin 0.9 mg/dL (0.2-1.0); Total Protein 6.8 g/dL (6.4-8.9)
[2016-11-03 14:12] LABS: Troponin I 0.05 ng/mL (<0.04)
[2016-11-03 14:18] LABS: Immature Granulocytes 27 % (0-9); Metamyelocytes % 4 % (0-2); Neutrophil % 56 % (38-83); Reactive Lymph % 1 % (0-6); Toxic Granulation 1+
--- NOTE | 2016-11-03 14:20 | RAD ---
HISTORY: Cough, shortness of breath COMPARISONS: September 09, 2016 VIEWS:1: Single frontal portable view of the chest at 2:05 PM FINDINGS: LINES AND TUBES: None. CARDIOMEDIASTINAL SILHOUETTE: The cardiomediastinal silhouette is normal for portable technique. PLEURA: The costophrenic angles are sharp. No pleural abnormalities are noted. LUNG PARENCHYMA: There is patchy alveolar opacification of the right lung base ABDOMEN: The upper abdomen is clear. There is no subphrenic gas. BONES AND SOFT TISSUES: No bone or soft tissue abnormalities are noted. IMPRESSION: PATCHY RIGHT LUNG BASE CONSOLIDATION
[2016-11-03] MEDS ORDERED: Albuterol/Ipratropium NEB.SOL* Albuterol 2.5 MG/Ipratropium 0.5 MG 3 ML INH PRN (14:36)
[2016-11-03] MEDS ORDERED: Polyethylene Glycol 3350* 17 GM PACKET PO PRN (14:46)
[2016-11-03] MEDS ORDERED: Levofloxacin 750 MG IVPREMIX(* 750 MG/150 ML BAG IVPB SCH (15:00)
[2016-11-03] MEDS: Acetaminophen TAB* 325 MG PO PRN (15:11)
[2016-11-03] MEDS: predniSONE TAB* 20 MG PO SCH (15:11)
[2016-11-03] MEDS: Mometasone/Formoter 200/5 MDI INH SCH (20:06)
--- NOTE | 2016-11-03 21:08 | HP ---
HOSPITAL MEDICINE HISTORY AND PHYSICAL: DATE OF ADMISSION: 11/03/16 PRIMARY CARE PHYSICIAN: Dr. Garcia. ATTENDING PHYSICIAN: Dr. Norman Arita* (dictation provided by Ila Alvarez NP) . CHIEF COMPLAINT: Cough and shortness of breath. HISTORY OF PRESENT ILLNESS: Mr. Cannon is a 71-year-old male with a past medical history of COPD who presents today to the hospital with concern for cough, shortness of breath, and generalized aches and pains. Mr. Cannon states that he began feeling unwell about 2 days ago. He states that he has had sick contact with his son who he lives with, who also had similar symptoms. The patient describes cough with increased sputum production. He has felt warm, but has not taken his temperature. He has aches and pains in his joints and generally feels "crummy." The patient has not taken any antibiotics and this is his first visit with this concern. He denies any nausea or vomiting. He states he has normal formed bowel movements. He is a continued smoker of about 3 to 4 cigarettes a day per his report. In the emergency room, Mr. Cannon was confirmed to have a pneumonia in the right lower lobe. He has a fever to 101. He is mildly tachycardic with heart rate of about 110. His blood pressure is low with a systolic blood pressure running 80 to 90. Lactic acid is 2.2. His troponin is 0.05. White count is 17.3. PAST MEDICAL HISTORY: 1. COPD. 2. GERD. 3. Admission in August 2016 for COPD exacerbation and lower GI bleeding thought to be secondary to internal hemorrhoids. 4. Chronic pain syndrome. 5. Depression. PAST SURGICAL HISTORY: Significant for: 1. Condyloma excision in the right inguinal area. 2. Cataracts bilaterally. MEDICATIONS: 1. Albuterol p.r.n. 2. Docusate 100 mg p.o. b.i.d. 3. Tiotropium 18 mcg inhaled daily. 4. Aspirin 81 mg p.o. daily. 5. Citalopram 40 mg p.o. daily. 6. Levothyroxine 50 mcg p.o. daily. 7. Lisinopril 20 mg p.o. daily. 8. Methadone 10 mg p.o. b.i.d. 9. Mometasone/formoterol 200/5, 1to 2 puffs inhaled b.i.d. 10. Omeprazole 20 mg p.o. b.i.d. 11. Tamsulosin 0.4 mg p.o. daily. ALLERGIES: No known drug allergies. FAMILY HISTORY: Reviewed. The patient states that he has positive heart disease in the family with mother dying at age 74 and dad dying in the 60s. SOCIAL HISTORY: The patient is a continued smoker. He is smoking for decades and states he smokes about 3 cigarettes a day now. He denies any drug use. No report of alcohol use. He lives with his son, Favian, who is the healthcare proxy. REVIEW OF SYSTEMS: A 14-point review of systems was completed with Mr. Cannon and all those not mentioned above are negative. PHYSICAL EXAMINATION GENERAL: Mr. Cannon is sitting up in the bed. He is in no acute distress. He is calm and cooperative to my examination. VITAL SIGNS: Temperature 101, heart rate 108, respiratory rate 21, O2 saturation 100% on 2 L nasal cannula, blood pressure 87/32. LUNGS: Diminished bilaterally with rhonchi on the right. There is no accessory muscle use. HEART: S1, S2. No murmur, rub, or gallop and regular. ABDOMEN: Soft, nontender with bowel sounds positive x4. EXTREMITIES: No cyanosis or edema. NEUROLOGIC: He is alert and oriented x3. He moves all extremities equally. There is no facial asymmetry or focal weakness. Extraocular movements are intact. SKIN: Intact. LABORATORY DATA AND DIAGNOSTIC STUDIES: WBC 17.3, hemoglobin 11.6, hematocrit 36, platelet count 180. Sodium 133, potassium 4.6, chloride 95, serum bicarbonate 30, BUN 42, creatinine 2.02, glucose 85, lactic acid 2.2. Troponin 0.05. CRP 405.97. Chest x-ray shows patchy infiltrate on the right. EKG shows sinus tachycardia with a heart rate about 110 with PVCs. ASSESSMENT: Mr. Cannon is a 71-year-old male with past medical history of chronic obstructive pulmonary disease who presents today to the hospital with concern for worsening cough and shortness of breath, found to have a right lower lobe pneumonia. Plans are for admission to the hospital for the following : 1. Pneumonia: Plan to treat with ceftriaxone and azithromycin. I do know that azithromycin is a mild QT prolonging agent and his QTc is about 451 in the setting of use of citalopram and methadone. Plan to recheck QTc at 2100 hours today. His lactic acid is mildly elevated. His blood pressure is relatively low and he mildly tachycardic. He has had 2 L in the emergency room. We will continue with a third liter now and he will have a maintenance rate if his heart rate and blood pressure respond well. He will have oxygen available as needed. He will have DuoNeb as needed. Plan to add Strep pneumoniae and Legionella antigens. Flu swab is also pending. 2. Chronic obstructive pulmonary disease: The patient has no clear evidence of an exacerbation, but based on his recent exacerbation and significant smoking history, plan to treat with prednisone for his pneumonia at 40 mg p.o. daily. He is not wheezing at this point, but he is extremely diminished. 3. Hypertension: Plan to hold lisinopril in the setting of acute kidney injury. 4. Acute kidney injury: The patient's BUN and creatinine are elevated with creatinine of 2.02. Plan to hold lisinopril and provide IV fluids. 5. Elevated troponin: I suspect this is secondary to demand ischemia. Plan to recycle troponins q.3 hours x1 or until peak. 6. Chronic pain: Continue methadone. I am also initiating a bowel regimen. 7. Benign prostatic hypertrophy: Continue Flomax. 8. Hypothyroidism: Continue levothyroxine. 9. DVT prophylaxis with heparin subcu. 10. Code status is full code. 11. Disposition to telemetry. TIME SPENT: Approximately 60 minutes were spent on the admission of this patient, more than half time spent with the patient at the bedside reviewing the events leading up to this hospitalization, performing the physical examination, and reviewing the plan of care. ILA ALVAREZ NP CC: Dr. Garcia* [id number]/[facility] #: [id number] CHRISTOPHER
[2016-11-03] MEDS: Methadone TAB* 10 MG PO SCH (21:49)
[2016-11-03] MEDS: Omeprazole CAP* 20 MG PO SCH (21:54)
[2016-11-03] MEDS: Senna TAB PO SCH (21:54)
[2016-11-03] MEDS: Heparin VIAL(*) 5000 UNITS/ML VIAL (FIVE THOUSAND) SUBCUT SCH (21:58)
--- NOTE | 2016-11-03 21:58 | ED ---
Ryley Garrison Erika, scribed for Eric Odom MD on 11/03/16 at 1331 . Respiratory - HPI Summary HPI Summary: Patient is a 71-year-old male presenting to the ED with a CC of SOB with exertion. Patient reports that he developed cold-like symptoms on 11/01/2016, most notably a productive cough. Associated symptoms include fever, headache, dizziness, slight hemoptysis, and chest pain due to cough. He denies SOB at rest. Patient was admitted to the hospital from 09/10-09/12, and was put on 2L home O2 starting at discharge. Per son, patient's blood pressure is usually around 116/72. He is a former heavy smoker and still occasionally has a cigarette. - History of Current Complaint Chief Complaint: EDShortnessOfBreath Stated Complaint: COUGH, SHORT BREATH, LOW 02 Time Seen by Provider: 11/03/16 13:14 Hx Obtained From: Patient, Family/Dental Mechanic - Son Onset/Duration: Gradual Onset, Lasting Days, Still Present Timing: Constant Initial Severity: Mild Current Severity: Moderate Character: Cough (Productive) Aggravating Factor(s): Exertion Associated Signs and Symptoms: Fever, SOB, Chest Pain with Cough, Dizziness - Allergy/Home Medications Allergies/Adverse Reactions: Allergies Allergy/AdvReac Type Severity Reaction Status Date / Time No Known Allergies Allergy Verified 03/11/13 10:49 PMH/Surg Hx/FS Hx/Imm Hx Endocrine/Hematology History: Denies: Hx Sickle Cell Disease Cardiovascular History: Denies: Other Cardiovascular Problems/Disorders Respiratory History: Reports: Hx Chronic Obstructive Pulmonary Disease (COPD) GI History: Reports: Hx Gastroesophageal Reflux Disease - ON MEDICATION History: Denies: Other Problems/Disorders Musculoskeletal History: Reports: Hx Arthritis Comment Only: Other Musculoskeletal History - herniated disc Sensory History: Reports: Hx Cataracts - RIGHT EYE, Hx Hearing Problem - [place] Denies: Hx Contacts or Glasses, Hx Hearing Aid Opthamlomology History: Reports: Hx Cataracts - RIGHT EYE Denies: Hx Contacts or Glasses Psychiatric History: Reports: Hx Depression - ON MEDICATION - Surgical History Surgery Procedure, Year, and Place: LEFT EYE CATARACT - 7 YEARS AGO [facility] Hx Anesthesia Reactions: No Infectious Disease History: No Infectious Disease History: Denies: Traveled Outside the [place] in Last 30 Days - Family History Known Family History: Positive: Cardiac Disease, Hypertension Negative: Diabetes - Social History Occupation: Retired Alcohol Use: Occasionally Substance Use Type: Reports: None Hx Tobacco Use: Yes - Still occasionally smokes 1 cigarette Smoking Status (MU): Former Smoker Review of Systems Positive: Fever Positive: Chest Pain - secondary to cough Positive: Shortness Of Breath, Cough - with some hemoptysis Neurological: Other - dizziness Positive: Headache All Other Systems Reviewed And Are Negative: Yes Physical Exam Triage Information Reviewed: Yes Vital Signs On Initial Exam: Initial Vitals Temp Pulse Resp BP Pulse Ox 99.9 F 109 18 72/45 88 11/03/16 12:42 11/03/16 12:42 11/03/16 12:42 11/03/16 12:42 11/03/16 12:42 Vital Signs Reviewed: Yes Appearance: Positive: Well-Appearing, No Pain Distress Skin: Positive: Skin Color Reflects Adequate Perfusion, Diaphoretic, Other - Warm to the touch Head/Face: Positive: Normal Head/Face Inspection Eyes: Positive: Normal ENT: Positive: Normal ENT inspection Neck: Positive: Supple, Nontender Respiratory/Lung Sounds: Positive: Decreased Breath Sounds - All breath sounds, Other - Crackles in the right base. Negative: Wheezes Cardiovascular: Positive: Tachycardia Abdomen Description: Positive: Nontender, Soft Bowel Sounds: Positive: Present Musculoskeletal: Positive: Normal Neurological: Positive: Normal Psychiatric: Positive: Affect/Mood Appropriate Diagnostics - Vital Signs Vital Signs Temp Pulse Resp BP Pulse Ox 11/03/16 13:08 101 F 114 18 82/42 100 11/03/16 13:07 97 25 91 11/03/16 13:06 82/42 11/03/16 12:42 99.9 F 109 18 72/45 88 - Laboratory Lab Results: Lab Results 11/03/16 11/03/16 11/03/16 Range/Units 13:00 13:00 13:00 WBC 17.3 H (3.5-10.8) 10^3/ul RBC 3.96 L (4.0-5.4) 10^6/ul Hgb 11.6 L (14.0-18.0) g/dl Hct 36 L (42-52) % MCV 90 (80-94) fL MCH 29 (27-31) pg MCHC 33 (31-36) g/dl RDW 15 (10.5-15) % Plt Count 180 (150-450) 10^3/ul MPV 8 (7.4-10.4) um3 Immature Gran % (Auto) 27 H (0-9) % Neut % (Auto) 91.1 H (38-83) % Lymph % (Auto) 6.1 L (25-47) % [place] % (Auto) 2.6 (1-9) % Eos % (Auto) 0 (0-6) % Baso % (Auto) 0.2 (0-2) % Absolute Neuts (auto) 15.7 H (1.5-7.7) 10^3/ul Absolute Lymphs (auto) 1.1 (1.0-4.8) 10^3/ul Absolute Monos (auto) 0.5 (0-0.8) 10^3/ul Absolute Eos (auto) 0 (0-0.6) 10^3/ul Absolute Basos (auto) 0 (0-0.2) 10^3/ul Absolute Nucleated RBC 0 10^3/ul Neutrophils % 56 (38-83) % Band Neutrophils % 23 H (0-8) % Lymphocytes % 11 L (25-47) % Reactive Lymphs % 1 (0-6) % Monocytes % 5 (0-13) % Metamyelocytes % 4 H (0-2) % Nucleated RBC % 0 Toxic Granulation 1+ Normal RBC Morphology Not Reportable Sodium 133 (133-145) mmol/L Potassium 4.6 (3.5-5.0) mmol/L Chloride 95 L (101-111) mmol/L Carbon Dioxide 30 (22-32) mmol/L Anion Gap 8 (2-11) mmol/L BUN 42 H (6-24) mg/dL Creatinine 2.02 H (0.67-1.17) mg/dL Est GFR ( Amer) 42.3 (>60) Est GFR (Non-Af Amer) 32.9 (>60) BUN/Creatinine Ratio 20.8 H (8-20) Glucose 85 (70-100) mg/dL Lactic Acid 2.2 H* (0.5-2.0) mmol/L Calcium 9.0 (8.6-10.3) mg/dL Total Bilirubin 0.90 (0.2-1.0) mg/dL AST 22 (13-39) U/L ALT 14 (7-52) U/L Alkaline Phosphatase 110 H (34-104) U/L Troponin I 0.05 H* (<0.04) ng/mL C-Reactive Protein 405.97 H (< 5.00) mg/L Total Protein 6.8 (6.4-8.9) g/dL Albumin 3.4 (3.2-5.2) g/dL Globulin 3.4 (2-4) g/dL Albumin/Globulin Ratio 1.0 (1-3) Influenza A (Rapid) (Negative) Influenza B (Rapid) (Negative) 11/03/16 Range/Units 13:46 WBC (3.5-10.8) 10^3/ul RBC (4.0-5.4) 10^6/ul Hgb (14.0-18.0) g/dl Hct (42-52) % MCV (80-94) fL MCH (27-31) pg MCHC (31-36) g/dl RDW (10.5-15) % Plt Count (150-450) 10^3/ul MPV (7.4-10.4) um3 Immature Gran % (Auto) (0-9) % Neut % (Auto) (38-83) % Lymph % (Auto) (25-47) % [place] % (Auto) (1-9) % Eos % (Auto) (0-6) % Baso % (Auto) (0-2) % Absolute Neuts (auto) (1.5-7.7) 10^3/ul Absolute Lymphs (auto) (1.0-4.8) 10^3/ul Absolute Monos (auto) (0-0.8) 10^3/ul Absolute Eos (auto) (0-0.6) 10^3/ul Absolute Basos (auto) (0-0.2) 10^3/ul Absolute Nucleated RBC 10^3/ul Neutrophils % (38-83) % Band Neutrophils % (0-8) % Lymphocytes % (25-47) % Reactive Lymphs % (0-6) % Monocytes % (0-13) % Metamyelocytes % (0-2) % Nucleated RBC % Toxic Granulation Normal RBC Morphology Sodium (133-145) mmol/L Potassium (3.5-5.0) mmol/L Chloride (101-111) mmol/L Carbon Dioxide (22-32) mmol/L Anion Gap (2-11) mmol/L BUN (6-24) mg/dL Creatinine (0.67-1.17) mg/dL Est GFR ( Amer) (>60) Est GFR (Non-Af Amer) (>60) BUN/Creatinine Ratio (8-20) Glucose (70-100) mg/dL Lactic Acid (0.5-2.0) mmol/L Calcium (8.6-10.3) mg/dL Total Bilirubin (0.2-1.0) mg/dL AST (13-39) U/L ALT (7-52) U/L Alkaline Phosphatase (34-104) U/L Troponin I (<0.04) ng/mL C-Reactive Protein (< 5.00) mg/L Total Protein (6.4-8.9) g/dL Albumin (3.2-5.2) g/dL Globulin (2-4) g/dL Albumin/Globulin Ratio (1-3) Influenza A (Rapid) Negative (Negative) Influenza B (Rapid) Negative (Negative) Result Diagrams: 11/03/16 13:00 11/03/16 13:00 Lab Statement: Any lab studies that have been ordered have been reviewed, and results considered in the medical decision making process. - Radiology CXR Radiology Interpretation Completed By: Radiologist - IMPRESSION: PATCHY RIGHT LUNG BASE CONSOLIDATION - EKG 13:00 Cardiac Rate: Tachycardia - at 114 bpm EKG Rhythm: Sinus Tachycardia Ectopy: PVCs - Frequent EKG Interpretation: quadrigeminy Disposition - Course Course Of Treatment: Mr. Cannon presented with an exacerbation lf his COPD and meeting sepsis criteria. He was treated with fluids and antibiotics. - Diagnoses Provider Diagnoses: PNEUMONIA,ELEVATED TROPI, Sepsis - Physician Notifications Discussed Care Of Patient With: Dr. Arita (hospitalist) at 14:23 - agrees to admit - Critical Care Time Critical Care Time: 30-74 min Discharge - Discharge Plan Condition: Stable Disposition: ADMITTED TO [facility] documentation as recorded by the Ryley muniz Erika accurately reflects the service I personally performed and the decisions made by , Eric Odom MD.
[2016-11-04] MEDS: Heparin VIAL(*) 5000 UNITS/ML VIAL (FIVE THOUSAND) SUBCUT SCH ×3 (05:40→22:11)
[2016-11-04 05:55] LABS: Hematocrit 31 % (42-52); Hemoglobin 10.2 g/dl (14.0-18.0); Mean Corpuscular HGB Conc 33 g/dl (31-36); Mean Corpuscular Hemoglobin 29 pg (27-31); Mean Corpuscular Volume 89 fL (80-94); Mean Platelet Volume 8 um3 (7.4-10.4); Red Blood Count 3.51 10^6/ul (4.0-5.4); Red Cell Distribution Width 15 % (10.5-15); White Blood Count 17.6 10^3/ul (3.5-10.8)
[2016-11-04 05:58] LABS: Add Diff/Slide Review? Slide Review Added; Comments Flag Yes
[2016-11-04 06:11] LABS: BUN/Creatinine Ratio 33.9 (8-20); Calcium 8.7 mg/dL (8.6-10.3); EGFR African American 81.1 (>60); EGFR Non-African American 63.1 (>60); Potassium 4.2 mmol/L (3.5-5.0)
[2016-11-04] MEDS: Mometasone/Formoter 200/5 MDI INH SCH ×2 (07:43→19:44)
[2016-11-04] MEDS: Citalopram TAB* 40 MG PO SCH (08:24)
[2016-11-04] MEDS: predniSONE TAB* 20 MG PO SCH (08:24)
[2016-11-04] MEDS: Omeprazole CAP* 20 MG PO SCH ×2 (08:24→22:06)
[2016-11-04] MEDS: Docusate CAP* 100 MG PO SCH (08:24)
[2016-11-04] MEDS: Methadone TAB* 10 MG PO SCH ×2 (08:25→22:07)
[2016-11-04] MEDS: Levothyroxine TAB* 50 MCG TAB PO SCH (08:25)
[2016-11-04] MEDS: Aspirin Low Dose CHEW TAB* 81 MG PO SCH (08:26)
[2016-11-04] MEDS: Azithromycin TAB* 250 MG PO SCH (08:26)
[2016-11-04] MEDS: Tamsulosin CAP* 0.4 MG PO SCH (08:26)
[2016-11-04] MEDS ORDERED: Escitalopram (NF) 10 MG TAB PO SCH (09:00)
[2016-11-04] MEDS ORDERED: NON FORMULARY MED* (Lisinopril [Prinivil Tab 20 Mg] 20 MG) PO SCH (09:00)
[2016-11-04] MEDS ORDERED: Azithromycin TAB* 250 MG PO SCH (09:00)
--- NOTE | 2016-11-04 10:36 | PN ---
Subjective Date of Service: 11/04/16 Interval History: Patient seen and examined at bedside. Pt states that he has shortness of breath with ambulation, but has not been out of bed this morning. Denies fever, chills , chest discomfort, N/V/D. Pt also reports think yellow to pink tinged sputum and post nasal drip. Tele: Sinus rhythm, rate 70-80's. Few PVCs noted. Family History: Unchanged from Admission Social History: Unchanged from Admission Past Medical History: Unchanged from Admission Objective Active Medications: Acetaminophen (Tylenol Tab*) 650 mg PO Q6H PRN Reason: Pain/fever Albuterol/Ipratropium (Duoneb (Albuterol 2.5 Mg/Ipratropium 0.5 Mg)) 1 neb INH Q4H PRN Reason: SOB/WHEEZING Aspirin (Aspirin Low Dose Tab*) 81 mg PO DAILY BETO Azithromycin (Zithromax Tab*) 500 mg PO DAILY BETO Citalopram Hydrobromide (Celexa Tab*) 40 mg PO DAILY [facility] Docusate Sodium (Colace Cap*) 100 mg PO DAILY [facility] Heparin Sodium (Porcine) (Heparin Vial(*)) 5,000 units SUBCUT Q8HR BETO Ceftriaxone Sodium 1,000 mg/ (Sodium Chloride) 50 mls @ 200 mls/hr IVPB Q24H BETO Levothyroxine Sodium (Synthroid Tab*) 50 mcg PO DAILY BETO Methadone HCl (Dolophine Tab*) 10 mg PO BID BETO Mometasone Furoate/Formoterol Fumar (Dulera 200/5 Mdi*) 2 puff INH BID BETO Omeprazole (Prilosec Cap*) 20 mg PO BID BETO Polyethylene Glycol/Electrolytes (Miralax*) 17 gm PO DAILY PRN Reason: CONSTIPATION Prednisone (Deltasone Tab*) 40 mg PO DAILY BETO Senna (Senokot Tab*) 1 tab PO BEDTIME BETO Tamsulosin HCl (Flomax Cap*) 0.4 mg PO DAILY [facility] Vital Signs 11/03/16 11/03/16 11/03/16 15:00 15:15 15:30 Temperature 98.6 F Pulse Rate 104 95 100 Respiratory 20 27 Rate Blood Pressure 87/43 89/50 81/53 (mmHg) O2 Sat by Pulse 100 93 100 Oximetry 11/03/16 11/03/16 11/03/16 16:05 20:00 21:49 Temperature 98.6 F Pulse Rate 95 99 Respiratory 18 18 20 Rate Blood Pressure 89/50 (mmHg) O2 Sat by Pulse 93 93 Oximetry 11/03/16 11/03/16 11/03/16 22:53 23:18 23:49 Temperature 98.3 F Pulse Rate 88 87 Respiratory 16 20 Rate Blood Pressure 114/59 (mmHg) O2 Sat by Pulse 98 100 Oximetry 11/04/16 11/04/16 11/04/16 03:53 07:18 07:46 Temperature 98.2 F 98.3 F Pulse Rate 83 85 88 Respiratory 16 18 15 Rate Blood Pressure 110/56 110/58 (mmHg) O2 Sat by Pulse 98 97 98 Oximetry 11/04/16 08:25 Temperature Pulse Rate Respiratory 20 Rate Blood Pressure (mmHg) O2 Sat by Pulse Oximetry Oxygen Devices in Use Now: Nasal Cannula - 2L Appearance: NAD, laying in bed Eyes: No Scleral Icterus Ears/Nose/Mouth/Throat: Mucous Membranes Moist Neck: NL Appearance and Movements; NL JVP, Trachea Midline Respiratory: Symmetrical Chest Expansion and Respiratory Effort, - - Lung sounds with rhonchi bilateral Cardiovascular: NL Sounds; No Murmurs; No JVD, RRR Abdominal: NL Sounds; No Tenderness; No Distention Extremities: No Edema Skin: No Rash or Ulcers Neurological: Alert and Oriented x 3, NL Muscle Strength and Tone Lines/Tubes/Other Access: Clean, Dry and Intact Peripheral IV - site benign Nutrition: Taking PO's Result Diagrams: 11/04/16 05:20 11/04/16 05:20 Additional Lab and Data: Microbiology and Other Data: Microbiology 11/03/16 20:00 Legionella Urinary Antigen - Final Urine Negative Legionella Streptococcus pneumoniae Ag Screen - Final Negative S. pneumo Antigen Assess/Plan/Problems-Billing Assessment: Mr. Cannon is a 71 yo male with PMH significant for COPD who presented to the emergency room with concern for worsening cough and shortness of breath, and was found to have right lower lobe pneumonia. - Patient Problems (1) Pneumonia Code(s): J18.9 - PNEUMONIA, UNSPECIFIED ORGANISM SNOMED Code(s): 456864883 Comment: - Pt denies SOB at rest, but states that he has SOB with exerction - Reports a frequent cough with yellow to pink tinged sputum - Afebrile since yesterday afternoon - Tachycardia resolved - Strep pneumoniae and legionella urine antigens negative - Influenza A/B negative - Leukocytosis - Lactic acidosis resolved after IVFs - Sputum - 4+ neutrophils, 1+ epithelial, 2+ gran positive cocci in chains - resembling strep, 1 gram positive cocci, 1+ yeast. Culture pending. - Will have patient walk in the halls - Continue ceftriaxone and azithromycin (QTc on repeat EKG 481) (2) COPD (chronic obstructive pulmonary disease) Code(s): J44.9 - CHRONIC OBSTRUCTIVE PULMONARY DISEASE, UNSPECIFIED SNOMED Code(s): 17739938 Comment: - No acute exacerbation at this time - On home O2 of 2L via NC - Will continue prednisone (3) IRIS (acute kidney injury) Code(s): N17.9 - ACUTE KIDNEY FAILURE, UNSPECIFIED SNOMED Code(s): 73392695 Comment: - Resolved after IVFs (4) Elevated troponin Code(s): R74.8 - ABNORMAL LEVELS OF OTHER SERUM ENZYMES SNOMED Code(s): 555734243 Comment: - Denies chest pain - Peaked at 0.05 - Suspect demand ischemia (5) BPH (benign prostatic hyperplasia) Code(s): N40.0 - BENIGN PROSTATIC HYPERPLASIA WITHOUT LOWER URINRY TRACT SYMP SNOMED Code(s): 981265902 Comment: - Continue flomax (6) HTN (hypertension) Code(s): I10 - ESSENTIAL (PRIMARY) HYPERTENSION SNOMED Code(s): 62761524 Comment: - Controlled, on the soft side with SBP 80-110's - Continue to hold Lisinopril (7) Chronic pain Code(s): G89.29 - OTHER CHRONIC PAIN SNOMED Code(s): 85619898 Comment: - Continue metadone and bowel regime (8) GERD (gastroesophageal reflux disease) Code(s): K21.9 - GASTRO-ESOPHAGEAL REFLUX DISEASE WITHOUT ESOPHAGITIS SNOMED Code(s): 095019991 Comment: - Continue omeprazole (9) Hypothyroidism Code(s): E03.9 - HYPOTHYROIDISM, UNSPECIFIED SNOMED Code(s): 30546927 Comment: - Continue Levothyroxine (10) DVT prophylaxis Code(s): SIE4412 - SNOMED Code(s): 498397638 Comment: - SQ heparin (11) Full code status Code(s): Z78.9 - OTHER SPECIFIED HEALTH STATUS SNOMED Code(s): 771508443 Status and Disposition: OBV. Plan for discharge to home if possibly later today, if able to ambulate in halls without significant shortness of breath or chest discomfort.
[2016-11-04] MEDS ORDERED: LORazepam TAB(*) 0.5 MG PO PRN (11:19)
[2016-11-04] MEDS: cefTRIAXone VIAL(*) 1,000 MG in NS 0.9% 50 ML* 50 ML IVPB SCH (11:44)
[2016-11-04] MEDS ORDERED: Levofloxacin 750 MG IVPREMIX(* 750 MG/150 ML BAG IVPB SCH (12:00)
[2016-11-04] MEDS ORDERED: cefTRIAXone VIAL(*) 1,000 MG in NS 0.9% 50 ML* 50 ML IVPB SCH (12:00)
[2016-11-04] MEDS: Acetaminophen TAB* 325 MG PO PRN (22:05)
[2016-11-04] MEDS: Senna TAB PO SCH (22:09)
[2016-11-05] MEDS: Heparin VIAL(*) 5000 UNITS/ML VIAL (FIVE THOUSAND) SUBCUT SCH ×2 (05:25→13:40)
[2016-11-05] MEDS: Mometasone/Formoter 200/5 MDI INH SCH (07:52)
[2016-11-05] MEDS: Docusate CAP* 100 MG PO SCH (08:28)
[2016-11-05] MEDS: Azithromycin TAB* 250 MG PO SCH (08:28)
[2016-11-05] MEDS: Aspirin Low Dose CHEW TAB* 81 MG PO SCH (08:28)
[2016-11-05] MEDS: Levothyroxine TAB* 50 MCG TAB PO SCH (08:28)
[2016-11-05] MEDS: Methadone TAB* 10 MG PO SCH (08:29)
[2016-11-05] MEDS: Tamsulosin CAP* 0.4 MG PO SCH (08:30)
[2016-11-05] MEDS: Omeprazole CAP* 20 MG PO SCH (08:30)
[2016-11-05] MEDS: predniSONE TAB* 20 MG PO SCH (08:30)
[2016-11-05] MEDS: Citalopram TAB* 40 MG PO SCH (08:30)
[2016-11-05] MEDS: cefTRIAXone VIAL(*) 1,000 MG in NS 0.9% 50 ML* 50 ML IVPB SCH (12:26)
--- NOTE | 2016-11-05 13:22 | PN ---
Subjective Date of Service: 11/05/16 Interval History: Mr. Cannon states that he is feeling much better than at admission but he still has a productive cough that causes some shortness of breath. He has been able to ambulate to the bathroom and do routine ADLs without significant MOLINA. He denies chest pain. He is tolerating oral intake. Family History: Unchanged from Admission Social History: Unchanged from Admission Past Medical History: Unchanged from Admission Objective Active Medications: Acetaminophen (Tylenol Tab*) 650 mg PO Q6H PRN Albuterol/Ipratropium (Duoneb (Albuterol 2.5 Mg/Ipratropium 0.5 Mg)) 1 neb INH Q4H PRN Aspirin (Aspirin Low Dose Tab*) 81 mg PO DAILY BETO Azithromycin (Zithromax Tab*) 500 mg PO DAILY [facility]O Citalopram Hydrobromide (Celexa Tab*) 40 mg PO DAILY [facility]O Docusate Sodium (Colace Cap*) 100 mg PO DAILY [facility] Heparin Sodium (Porcine) (Heparin Vial(*)) 5,000 units SUBCUT Q8HR BETO Ceftriaxone Sodium 1,000 mg/ (Sodium Chloride) 50 mls @ 200 mls/hr IVPB Q24H BETO Levothyroxine Sodium (Synthroid Tab*) 50 mcg PO DAILY BETO Lorazepam (Ativan Tab(*)) 0.5 mg PO Q6H PRN Methadone HCl (Dolophine Tab*) 10 mg PO BID BETO Mometasone Furoate/Formoterol Fumar (Dulera 200/5 Mdi*) 2 puff INH BID BETO Omeprazole (Prilosec Cap*) 20 mg PO BID BETO Polyethylene Glycol/Electrolytes (Miralax*) 17 gm PO DAILY PRN Prednisone (Deltasone Tab*) 40 mg PO DAILY BETO Senna (Senokot Tab*) 1 tab PO BEDTIME BETO Tamsulosin HCl (Flomax Cap*) 0.4 mg PO DAILY [facility] Vital Signs 11/04/16 11/04/16 11/04/16 13:30 14:00 14:30 Temperature Pulse Rate 122 113 100 Respiratory 29 26 23 Rate Blood Pressure 135/64 123/70 126/60 (mmHg) O2 Sat by Pulse 97 98 98 Oximetry 11/04/16 11/04/16 11/04/16 15:00 15:14 19:38 Temperature 98.0 F 98.0 F Pulse Rate 80 89 95 Respiratory 14 17 17 Rate Blood Pressure 116/52 124/65 116/79 (mmHg) O2 Sat by Pulse 98 95 98 Oximetry 11/04/16 11/04/16 11/04/16 19:48 19:49 22:07 Temperature Pulse Rate 85 85 Respiratory 20 Rate Blood Pressure (mmHg) O2 Sat by Pulse 98 98 Oximetry 11/04/16 11/05/16 11/05/16 23:52 04:21 07:18 Temperature 97.6 F 98.5 F Pulse Rate 80 81 67 Respiratory 16 16 20 Rate Blood Pressure 137/72 145/79 133/70 (mmHg) O2 Sat by Pulse 96 93 97 Oximetry 11/05/16 11/05/16 11/05/16 07:54 08:29 10:01 Temperature Pulse Rate 78 Respiratory 14 16 20 Rate Blood Pressure (mmHg) O2 Sat by Pulse 96 Oximetry 11/05/16 12:01 Temperature Pulse Rate Respiratory 20 Rate Blood Pressure (mmHg) O2 Sat by Pulse Oximetry Oxygen Devices in Use Now: Nasal Cannula - 2L Appearance: Thin male sitting up on edge of bed in NAD Respiratory: Symmetrical Chest Expansion and Respiratory Effort, - - Diminished bilaterally, minimal rhonchi to right lower lung Cardiovascular: NL Sounds; No Murmurs; No JVD, No Edema Abdominal: NL Sounds; No Tenderness; No Distention Extremities: No Edema Skin: No Rash or Ulcers Neurological: Alert and Oriented x 3, NL Muscle Strength and Tone Nutrition: Taking PO's Result Diagrams: 11/04/16 05:20 11/04/16 05:20 Additional Lab and Data: Microbiology and Other Data: Microbiology 11/03/16 20:00 Legionella Urinary Antigen - Final Urine Negative Legionella Streptococcus pneumoniae Ag Screen - Final Negative S. pneumo Antigen Assess/Plan/Problems-Billing Assessment: Mr. Cannon is a 71 yo male with PMH significant for COPD who presented to the emergency room with concern for worsening cough and shortness of breath, and was found to have right lower lobe pneumonia. - Patient Problems (1) Pneumonia Comment: Greatly improved though not at baseline. Afebrile, no leukocytosis. At baseline O2 requirement. Sputum with strep pneumo. Reviewed case with Dr. Mann romero that neisseria is just a colonizer. Will discharge on augmentin based on sensitivities. Continue prednisone via taper. (2) IRIS (acute kidney injury) Comment: Resolved after IVFs (3) Elevated troponin Comment: Denies chest pain. Peaked at 0.05. Suspect demand ischemia (4) HTN (hypertension) Comment: SBP improved. Pt encouraged to hold lisinopril until follow up with PCP. (5) BPH (benign prostatic hyperplasia) Comment: Continue flomax (6) Chronic pain Comment: Continue methadone and bowel regime (7) GERD (gastroesophageal reflux disease) Comment: Continue omeprazole (8) Hypothyroidism Comment: Continue Levothyroxine (9) DVT prophylaxis Comment: SQ heparin (10) Full code status Status and Disposition: Discharge to home.
[2016-11-05 14:03] VITALS: BP 132/72
--- NOTE | 2016-11-06 10:09 | DS ---
HOSPITAL MEDICINE DISCHARGE SUMMARY: DATE OF ADMISSION: 11/03/16 DATE OF DISCHARGE: 11/05/16 PRIMARY CARE PHYSICIAN: Dr. Luis E Garcia. ATTENDING PHYSICIAN: Dr. Minor Ames* (dictation provided by Ila Alvarez NP). PRIMARY DIAGNOSIS: Strep pneumonia. SECONDARY DIAGNOSES: 1. History of chronic obstructive pulmonary disease. 2. Benign prostatic hypertrophy. 3. Depression. 4. Gastroesophageal reflux disease. 5. Internal hemorrhoids. 6. Chronic pain syndrome. MEDICATIONS: 1. Augmentin 875 p.o. b.i.d. x7 days. 2. Prednisone via taper. 3. Albuterol p.r.n. 4. Docusate 100 mg p.o. b.i.d. 5. Tiotropium 18 mcg inhaled daily. 6. Aspirin 81 mg p.o. daily. 7. Citalopram 40 mg p.o. daily. 8. Levothyroxine 50 mcg p.o. daily. 9. Methadone 10 mg p.o. b.i.d. 10. Mometasone/formoterol 200/5 one to two puffs inhaled b.i.d. 11. Omeprazole 20 mg p.o. b.i.d. 12. Tamsulosin 0.4 mg p.o. daily. 13. Hold lisinopril. HOSPITAL COURSE: Mr. Cannon is a 71-year-old male who presented to the hospital on 11/03/16 with concern for cough and shortness of breath. Please see the dictated H and P from myself for complete details. In brief, the patient has a history of COPD and had been feeling unwell for about 2 days. His son also had similar symptoms. In the emergency room, he had a chest x-ray which showed concern for a patchy right lower lobe pneumonia. He was febrile to 101 and his white blood cell count was elevated to 17. Mr. Cannon was admitted to the hospital. He was treated with ceftriaxone and azithromycin. He also received prednisone and DuoNeb nebulizer treatments. With that, he has been getting better slowly. He states that today he feels much better than on arrival, although he continues to have some dyspnea on exertion which is mild. He was able to get up to the bathroom and take care of his activities of daily living independently. He still does have some coughing spells that do make him short of breath, but he feels that he is doing much better overall. I will note that Mr. Cannon had positive sputum culture with strep pneumonia and Neisseria meningitidis. I believe that the Neisseria is a contaminant or a colonizer. This was reviewed with Dr. Darnell who agreed that his infection was likely due to strep pneumonia. Plan to treat with Augmentin b.i.d. and to complete prednisone taper. DISPOSITION: Home. DIET: Low salt. ACTIVITY: As tolerated. FOLLOWUP PLAN: Please follow up with Dr. Beltran on 11/08/16 regarding this hospitalization for strep pneumonia as well as consideration of continuation of lisinopril. TIME SPENT: Approximately 60 minutes were spent in the discharge of this patient, more than half the time spent with him at the bedside reviewing the events leading up to this hospitalization, performing the physical examination, and reviewing my plan of care. ILA ALVAREZ NP CC: Dr. Luis E Garcia* [id number]/[facility] #: [id number] FAXTON HOSPITALGeovanni
== END 2016-11-05 15:00 | disposition home or self-care (01) ==
LOC: ED 12:42 → MEDTELE 14:31
PROVIDERS: ADMIT Internal Medicine; ATTEND Internal Medicine
DX: J15.4 Pneumonia due to other streptococci (principal); J44.9 Chronic obstructive pulmonary disease, unspecified; N17.9 Acute kidney failure, unspecified; I10 Essential (primary) hypertension; N40.0 Benign prostatic hyperplasia without lower urinary tract symptoms; K21.9 Gastro-esophageal reflux disease without esophagitis; F32.9 Major depressive disorder, single episode, unspecified; G89.29 Other chronic pain; K64.8 Other hemorrhoids; R94.31 Abnormal electrocardiogram [ECG] [EKG]; I45.10 Unspecified right bundle-branch block; I49.3 Ventricular premature depolarization; R74.8 Abnormal levels of other serum enzymes; Z79.82 Long term (current) use of aspirin; Z79.899 Other long term (current) drug therapy; F17.210 Nicotine dependence, cigarettes, uncomplicated
CPT/HCPCS: 36415; 71010; 80048; 80053; 83605; 84484; 85025; 86140; 87040; 87070; 87077; 87186; 87205; 87502; 87899; 93005; 94640; 94760; 96365; 96366; 96367; 96372; 96375; 99284; 99406; A9270-GY; G0378; J0456; J0696; J1644; J7512

== ENCOUNTER 2017-09-12 18:33 | Inpatient (IN) | payer MEDICARE ==
[2017-09-12] MEDS ORDERED: Lactated Ringers 1000 ml Bag*IV.FLUID IV ONE (19:19)
[2017-09-12] MEDS ORDERED: Piperacillin/Tazobac ADVAN(*) 3.375 GM in NS 0.9% 100 ML* 100 ML IVPB ONE (19:19)
[2017-09-12] MEDS ORDERED: methylPREDNISolone 125 MG* 2 ML VIAL IV ONE (19:21)
[2017-09-12] MEDS ORDERED: Albuterol/Ipratropium NEB.SOL* Albuterol 2.5 MG/Ipratropium 0.5 MG 3 ML INH ONE (19:21)
--- NOTE | 2017-09-12 19:55 | RAD ---
INDICATION: COPD COMPARISON: Chest x-ray November 03, 2016 TECHNIQUE: An AP portable view obtained at 1946 hours is submitted. FINDINGS: Bones/Soft Tissues: There are no acute bony findings. Cardiomediastinal: The cardiomediastinal silhouette is normal. Lungs: There are no infiltrates. There is hyperinflation. Pleura: There are no pleural effusions. Other: None IMPRESSION: HYPERINFLATION. NO ACTIVE DISEASE.
[2017-09-12] MEDS ORDERED: Vancomycin(*) 1,000 MG VIAL IVPB SCH (20:00)
[2017-09-12] MEDS ORDERED: Oseltamivir CAP* 75 MG CAP PO ONE (20:08)
[2017-09-12 20:46] LABS: ABS Basophils 0 10^3/ul (0-0.2); ABS Eosinophils 0 10^3/ul (0-0.6); ABS Lymphocytes 1.5 10^3/ul (1.0-4.8); ABS Monocytes 0.7 10^3/ul (0-0.8); ABS Nucleated RBC 0 10^3/ul; Eosinophil % 0.1 % (0-6); Hematocrit 36 % (42-52); Hemoglobin 11.9 g/dl (14.0-18.0); Mean Corpuscular HGB Conc 33 g/dl (31-36); Mean Corpuscular Hemoglobin 30 pg (27-31); Mean Corpuscular Volume 91 fL (80-94); Mean Platelet Volume 8 um3 (7.4-10.4); Nucleated Red Blood Cells % 0.1; Platelet Count 133 10^3/ul (150-450); Red Blood Count 3.94 10^6/ul (4.0-5.4); Red Cell Distribution Width 15 % (10.5-15); White Blood Count 6.2 10^3/ul (3.5-10.8)
[2017-09-12 21:04] LABS: EGFR Non-African American 47.4 (>60)
--- NOTE | 2017-09-12 21:06 | RAD ---
INDICATION: Altered mental status COMPARISON: None TECHNIQUE: Noncontrast axial source images were acquired from the skull base to the vertex. Examination is mildly limited due to motion artifact. Several images were repeated. FINDINGS: Ventricles/sulci: The ventricles and cisterns are normal in size and configuration for age. Brain parenchyma: There is no focal parenchymal finding, evidence of intracranial mass, or intracranial mass effect. Intracranial hemorrhage:None. Extra-axial spaces: There are no abnormal extra axial fluid collections or evidence of extra-axial mass. Calvarium: There is no calvarial fracture or other calvarial abnormality. Scalp: There is no evidence of scalp or extracalvarial soft tissue abnormality. Paranasal sinuses/mastoid: The paranasal sinuses and mastoid air cells are clear. Other: None. IMPRESSION: Mildly limited examination due to motion artifact. No acute intracranial findings
[2017-09-12 21:07] LABS: INR 1.02 (0.77-1.02)
[2017-09-12] MEDS ORDERED: Vancomycin(*) 1,000 MG in NS 0.9% 250 ML* 250 ML IVPB STA (21:28)
[2017-09-12] MEDS ORDERED: Melatonin (NF) 3 MG TAB PO PRN (21:42)
[2017-09-12] MEDS ORDERED: Albuterol 2.5 MG/3 ML NEB.SOL* (0.083%) INH PRN (21:42)
--- NOTE | 2017-09-12 21:46 | HP ---
H&P (Free Text) History and Physical: PCP: Jah Garcia MD Date/Time: 09/12/2017 21:30 CC: fatigue & confusion HPI: Mr Cannon is a 72YO male HX 2L O2 dependant COPD who is markedly hard of hearing presents with 2 days of cough, congestion, increased fatigue, & confusion. He has reported to his son with whom he lives of having sweats, but denies F/C, changes in bowel/bladder, chest pain, increased SOB, or other issues. His son states his appetite has been decreased and noted his saO2 to be in the 80s over the past 2 days, but his father had refused to come for evaluation until today when a friend stopped in and was able to convince him. ED evaluation is notable for SIRS 2nd influenza B with an IRIS. PMedHx COPD markedly hard of hearing chronic pain syndrome on methadone hypothyroidism anxiety over active bladder GERD Ambulatory Orders Methadone TAB* [Dolophine TAB*] 10 mg PO BID MDD 20mg 03/04/13 Docusate Sodium 100 mg PO BID 09/10/16 Levothyroxine TAB* [Synthroid TAB*] 50 mcg PO DAILY 09/10/16 Albuterol Sulfate [Proair Hfa] 1 - 2 puff INH Q4H PRN 09/12/16 Ascorbic Acid TAB* [Vitamin C TAB*] 1,000 mg PO DAILY 09/12/17 Escitalopram (NF) [Lexapro 10 mg (NF)] 10 mg PO DAILY 09/12/17 LORazepam TAB(*) [Ativan 1 MG TAB (*)] 1 mg PO TID PRN MDD three tabs 09/12/17 Omeprazole CAP* [Prilosec CAP* 20 MG] 20 mg PO DAILY 09/12/17 Oxybutynin TAB* [Ditropan TAB*] 5 mg PO QPM 09/12/17 Allergies No Known Allergies Allergy (Verified 09/12/17 22:35) PSurgHx appendectomy hernia repair R mastoidectomy SocHx: >1/2 PPD cigarettes, up to 6 alcoholic drinks weekly, no recreational drugs; , lives with his son; full code status FamHx: Mother passed in her 60s 2nd CAD, cancer; Father passed in his 70s 2nd CAD ROS: as above, otherwise reviewed and all were negative vitals: Vital Signs Temp 37.2 C 09/12/17 22:52 Pulse 89 09/12/17 22:52 Resp 23 09/12/17 22:52 BP 98/50 09/12/17 22:52 Pulse Ox 97 09/12/17 22:52 Intake & Output 09/11/17 09/12/17 09/12/17 23:59 11:59 23:59 Intake Total 2009 Balance 2009 Weight 63.503 kg Intake: IV Fluids 2009 Constitutional: NAD, normally developed, well-nourished elderly white male HEENM: atraumatic; sclera/conjunctiva: anicteric/clear; hearing: markedly hard of hearing; oropharynx: clear, mucosa tacky Neck: soft tissue: non-tender; thyroid: normal, non-tender Pulmonary: scant end-expiratory wheeze B, fair to poor aeration, no accessory muscle use CV: RR/RR, normal S1S2, no carotid bruit, mild jugular venous distention, 2+ B DP/PT, no edema Abdominal: soft, non-distended, non-tender, no rebound/guarding/rigidity, normoactive bowel sounds, no hepatosplenomegaly or masses, no costovertebral angle tenderness Musculoskeletal: general: grossly intact, no tenderness w/ palpation Integumental: normal appearance and texture of exposed skin Psychiatric orientation: AA&O to PPS affect: somnolent mood: cooperative eye contact: fair to poor content: reliable responses: mildly slowed insight: fair Testing: Lab Results 09/12/17 09/12/17 09/12/17 Range/Units 19:33 20:02 20:33 WBC (3.5-10.8) 10^3/ul RBC (4.0-5.4) 10^6/ul Hgb (14.0-18.0) g/dl Hct (42-52) % MCV (80-94) fL MCH (27-31) pg MCHC (31-36) g/dl RDW (10.5-15) % Plt Count (150-450) 10^3/ul MPV (7.4-10.4) um3 Neut % (Auto) (38-83) % Lymph % (Auto) (25-47) % Bureau % (Auto) (0-7) % Eos % (Auto) (0-6) % Baso % (Auto) (0-2) % Absolute Neuts (auto) (1.5-7.7) 10^3/ul Absolute Lymphs (auto) (1.0-4.8) 10^3/ul Absolute Monos (auto) (0-0.8) 10^3/ul Absolute Eos (auto) (0-0.6) 10^3/ul Absolute Basos (auto) (0-0.2) 10^3/ul Absolute Nucleated RBC 10^3/ul Nucleated RBC % INR (Anticoag Therapy) 1.02 (0.77-1.02) APTT 29.4 (26.0-36.3) seconds Patient Temperature Not Reportable ABG pH 7.33 L (7.35-7.45) ABG pH (Temp Correct) Not Reportable ABG pCO2 57 H (35-45) mmHg ABG pCO2 (Temp Corrct Not Reportable ABG pO2 75 L (80-100) mmHg ABG pO2 (Temp Correct Not Reportable ABG HCO3 27.2 (19-31) mmol/L ABG O2 Saturation 96.2 (95-98) % ABG Base Excess 3.0 H (-2.0-2.0) Respiration Rate Not Reportable O2 Delivery Device nc Ventilator Type Not Reportable Vent Mode Not Reportable FiO2 4 Inspiratory Time Not Reportable PEEP Not Reportable Pressure Support Not Reportable Pressure Control Not Reportable EPAP Not Reportable IPAP Not Reportable BiPAP Not Reportable Sodium (133-145) mmol/L Potassium (3.5-5.0) mmol/L Chloride (101-111) mmol/L Carbon Dioxide (22-32) mmol/L Anion Gap (2-11) mmol/L BUN (6-24) mg/dL Creatinine (0.67-1.17) mg/dL Est GFR ( Amer) (>60) Est GFR (Non-Af Amer) (>60) BUN/Creatinine Ratio (8-20) Glucose (70-100) mg/dL Lactic Acid (0.5-2.0) mmol/L Calcium (8.6-10.3) mg/dL Total Bilirubin (0.2-1.0) mg/dL AST (13-39) U/L ALT (7-52) U/L Alkaline Phosphatase (34-104) U/L Troponin I (<0.04) ng/mL B-Natriuretic Peptide ( - 100) pg/mL Total Protein (6.4-8.9) g/dL Albumin (3.2-5.2) g/dL Globulin (2-4) g/dL Albumin/Globulin Ratio (1-3) Influenza A (Rapid) Negative (Negative) Influenza B (Rapid) Positive H (Negative) 09/12/17 09/12/17 09/12/17 Range/Units 20:33 20:33 20:33 WBC 6.2 (3.5-10.8) 10^3/ul RBC 3.94 L (4.0-5.4) 10^6/ul Hgb 11.9 L (14.0-18.0) g/dl Hct 36 L (42-52) % MCV 91 (80-94) fL MCH 30 (27-31) pg MCHC 33 (31-36) g/dl RDW 15 (10.5-15) % Plt Count 133 L (150-450) 10^3/ul MPV 8 (7.4-10.4) um3 Neut % (Auto) 64.1 (38-83) % Lymph % (Auto) 24.0 L (25-47) % Bureau % (Auto) 11.3 H (0-7) % Eos % (Auto) 0.1 (0-6) % Baso % (Auto) 0.5 (0-2) % Absolute Neuts (auto) 4.0 (1.5-7.7) 10^3/ul Absolute Lymphs (auto) 1.5 (1.0-4.8) 10^3/ul Absolute Monos (auto) 0.7 (0-0.8) 10^3/ul Absolute Eos (auto) 0 (0-0.6) 10^3/ul Absolute Basos (auto) 0 (0-0.2) 10^3/ul Absolute Nucleated RBC 0 10^3/ul Nucleated RBC % 0.1 INR (Anticoag Therapy) (0.77-1.02) APTT (26.0-36.3) seconds Patient Temperature ABG pH (7.35-7.45) ABG pH (Temp Correct) ABG pCO2 (35-45) mmHg ABG pCO2 (Temp Corrct ABG pO2 (80-100) mmHg ABG pO2 (Temp Correct ABG HCO3 (19-31) mmol/L ABG O2 Saturation (95-98) % ABG Base Excess (-2.0-2.0) Respiration Rate O2 Delivery Device Ventilator Type Vent Mode FiO2 Inspiratory Time PEEP Pressure Support Pressure Control EPAP IPAP BiPAP Sodium 136 (133-145) mmol/L Potassium 4.4 (3.5-5.0) mmol/L Chloride 102 (101-111) mmol/L Carbon Dioxide 27 (22-32) mmol/L Anion Gap 7 (2-11) mmol/L BUN 46 H (6-24) mg/dL Creatinine 1.47 H (0.67-1.17) mg/dL Est GFR ( Amer) 60.9 (>60) Est GFR (Non-Af Amer) 47.4 (>60) BUN/Creatinine Ratio 31.3 H (8-20) Glucose 104 H (70-100) mg/dL Lactic Acid (0.5-2.0) mmol/L Calcium 8.7 (8.6-10.3) mg/dL Total Bilirubin 0.30 (0.2-1.0) mg/dL AST 32 (13-39) U/L ALT 15 (7-52) U/L Alkaline Phosphatase 187 H (34-104) U/L Troponin I 0.01 (<0.04) ng/mL B-Natriuretic Peptide 167 H ( - 100) pg/mL Total Protein 6.4 (6.4-8.9) g/dL Albumin 3.4 (3.2-5.2) g/dL Globulin 3.0 (2-4) g/dL Albumin/Globulin Ratio 1.1 (1-3) Influenza A (Rapid) (Negative) Influenza B (Rapid) (Negative) 09/12/17 Range/Units 20:33 WBC (3.5-10.8) 10^3/ul RBC (4.0-5.4) 10^6/ul Hgb (14.0-18.0) g/dl Hct (42-52) % MCV (80-94) fL MCH (27-31) pg MCHC (31-36) g/dl RDW (10.5-15) % Plt Count (150-450) 10^3/ul MPV (7.4-10.4) um3 Neut % (Auto) (38-83) % Lymph % (Auto) (25-47) % Bureau % (Auto) (0-7) % Eos % (Auto) (0-6) % Baso % (Auto) (0-2) % Absolute Neuts (auto) (1.5-7.7) 10^3/ul Absolute Lymphs (auto) (1.0-4.8) 10^3/ul Absolute Monos (auto) (0-0.8) 10^3/ul Absolute Eos (auto) (0-0.6) 10^3/ul Absolute Basos (auto) (0-0.2) 10^3/ul Absolute Nucleated RBC 10^3/ul Nucleated RBC % INR (Anticoag Therapy) (0.77-1.02) APTT (26.0-36.3) seconds Patient Temperature ABG pH (7.35-7.45) ABG pH (Temp Correct) ABG pCO2 (35-45) mmHg ABG pCO2 (Temp Corrct ABG pO2 (80-100) mmHg ABG pO2 (Temp Correct ABG HCO3 (19-31) mmol/L ABG O2 Saturation (95-98) % ABG Base Excess (-2.0-2.0) Respiration Rate O2 Delivery Device Ventilator Type Vent Mode FiO2 Inspiratory Time PEEP Pressure Support Pressure Control EPAP IPAP BiPAP Sodium (133-145) mmol/L Potassium (3.5-5.0) mmol/L Chloride (101-111) mmol/L Carbon Dioxide (22-32) mmol/L Anion Gap (2-11) mmol/L BUN (6-24) mg/dL Creatinine (0.67-1.17) mg/dL Est GFR ( Amer) (>60) Est GFR (Non-Af Amer) (>60) BUN/Creatinine Ratio (8-20) Glucose (70-100) mg/dL Lactic Acid 0.7 (0.5-2.0) mmol/L Calcium (8.6-10.3) mg/dL Total Bilirubin (0.2-1.0) mg/dL AST (13-39) U/L ALT (7-52) U/L Alkaline Phosphatase (34-104) U/L Troponin I (<0.04) ng/mL B-Natriuretic Peptide ( - 100) pg/mL Total Protein (6.4-8.9) g/dL Albumin (3.2-5.2) g/dL Globulin (2-4) g/dL Albumin/Globulin Ratio (1-3) Influenza A (Rapid) (Negative) Influenza B (Rapid) (Negative) ECG, personally reviewed: NSR rate 81, occasional PACs, no ischemia CXR, personally reviewed: IMPRESSION: HYPERINFLATION. NO ACTIVE DISEASE. CT brain WO, personally reviewed: IMPRESSION: Mildly limited examination due to motion artifact. No acute intracranial findings Impression: 72M presenting with increased fatigue, cough, congestion, & confusion found to be influenza B positive with an IRIS and mild COPD exacerbation DIAGNOSIS & PLAN Primary SIRS 2nd influenza B : droplet precautions : renally dosed oseltamivir : supportive care IRIS : IVFs, monitor mild COPD exacerbation : albuterol nebs : mometasone/formoterol : tiotropium : IV methylprednisolone : 2L NC oxygen, RT titration only : smoking cessation advised, low motivation mild JVD : suspect 2nd emphysema : monitor respiratory status while receiving fluids for IRIS : strict I&Os : daily weights Secondary markedly hard of hearing : uses a hearing aide which son will bring tomorrow chronic pain syndrome : continue methadone hypothyroidism : continue levothyroxine anxiety : continue escitalopram : hold lorazepam in setting of somnolence over active bladder : continue oxybutynin GERD continue omeprazole Admission Rational: inpatient for SIRS/influenza B/IRIS/COPD exacerbation in patient at high risk of morbidity/mortality; inappropriate for outpatient setting DVTp: SCDs & heparin SQ Code Status: full HCP: son
[2017-09-12] MEDS ORDERED: Spiriva Inhaler DEVICE* 1 EACH DEVICE SCH (22:00)
--- NOTE | 2017-09-12 22:40 | ED ---
Niraj Garrison Angela, scribed for Amauri Alba on 09/12/17 at 1917 . Complex/Multi-Sys Presentation - HPI Summary HPI Summary: This pt is a 72 y/o male presenting to [facility] c/o SOB and disorientation since yesterday. Pt reports he has not been feeling well. Per son, they have been taking the pt's oxygen level at home and it has been low recently. Son states the pt has been disoriented a lot since yesterday. Pt uses 2L of oxygen at home for COPD. Son lives with the pt at home. Pt is a current smoker. - History Of Current Complaint Chief Complaint: EDShortnessOfBreath Time Seen by Provider: 09/12/17 19:09 Hx Obtained From: Patient Onset/Duration: Lasting Days - 1, Still Present Timing: Days - 1 Severity Currently: Moderate Severity Initially: Mild Aggravating Factor(s): nothing Alleviating Factor(s): increasing oxygen Associated Signs And Symptoms: Positive: SOB, Other - disorientation - Allergies/Home Medications Allergies/Adverse Reactions: Allergies Allergy/AdvReac Type Severity Reaction Status Date / Time No Known Allergies Allergy Verified 09/12/17 22:35 Home Medications: Home Medications Ascorbic Acid TAB* [Vitamin C TAB*] 1,000 mg PO DAILY 09/12/17 [History Confirmed 09/12/17] Escitalopram (NF) [Lexapro 10 mg (NF)] 10 mg PO DAILY 09/12/17 [History Confirmed 09/12/17] LORazepam TAB(*) [Ativan 1 MG TAB (*)] 1 mg PO TID PRN MDD three tabs 09/12/17 [ History Confirmed 09/12/17] Omeprazole CAP* [Prilosec CAP* 20 MG] 20 mg PO DAILY 09/12/17 [History Confirmed 09/12/17] Oxybutynin TAB* [Ditropan TAB*] 5 mg PO QPM 09/12/17 [History Confirmed 09/12/17 ] PMH/Surg Hx/FS Hx/Imm Hx Endocrine/Hematology History: Denies: Hx Sickle Cell Disease Cardiovascular History: Denies: Other Cardiovascular Problems/Disorders Respiratory History: Reports: Hx Chronic Obstructive Pulmonary Disease (COPD), Other Respiratory Problems/Disorders - EMPHYSEMA GI History: Reports: Hx Gastroesophageal Reflux Disease - ON MEDICATION, Hx Gastrointestinal Bleed, Hx Ulcer History: Denies: Other Problems/Disorders Musculoskeletal History: Reports: Hx Arthritis, Hx Back Problems Comment Only: Other Musculoskeletal History - herniated disc Sensory History: Reports: Hx Cataracts - RIGHT EYE, Hx Hearing Problem - [place] Denies: Hx Contacts or Glasses, Hx Hearing Aid Opthamlomology History: Reports: Hx Cataracts - RIGHT EYE Denies: Hx Contacts or Glasses Psychiatric History: Reports: Hx Depression - ON MEDICATION - Surgical History Surgery Procedure, Year, and Place: LEFT EYE CATARACT - 7 YEARS AGO [facility] Hx Anesthesia Reactions: No Infectious Disease History: No Infectious Disease History: Denies: Traveled Outside the [place] in Last 30 Days - Family History Known Family History: Positive: Cardiac Disease, Hypertension Negative: Diabetes - Social History Alcohol Use: Occasionally Substance Use Type: Reports: None Hx Tobacco Use: Yes - Still occasionally smokes 1 cigarette Smoking Status (MU): Current Every Day Smoker Review of Systems Negative: Fever Positive: Shortness Of Breath Genitourinary: Negative Musculoskeletal: Negative Neurological: Other - disorientation All Other Systems Reviewed And Are Negative: Yes Physical Exam - Summary Physical Exam Summary: Appearance:no pain distress Skin: warm, dry, reflects adequate perfusion Head/face: normal Eyes: EOMI, TAISHA ENT: Dry mucous membranes Neck: supple, nontender Respiratory: Bilateral wheeze and rhonchi. Cardiovascular: RRR, pulses symmetrical Abdomen: nontender, soft Bowel: present Musculoskeletal: normal, strength/ROM intact Neuro: normal, sensory motor intact, Alert and confused Triage Information Reviewed: Yes Vital Signs On Initial Exam: Initial Vitals Temp Pulse Resp BP Pulse Ox 98.3 F 92 22 81/45 77 09/12/17 18:46 09/12/17 18:46 09/12/17 18:46 09/12/17 18:46 09/12/17 18:46 Vital Signs Reviewed: Yes - Kyle Coma Scale Best Eye Response: 4 - Spontaneous Best Motor Response: 6 - Obeys Commands Best Verbal Response: 5 - Oriented Coma Scale Total: 15 Diagnostics - Vital Signs Vital Signs Temp Pulse Resp BP Pulse Ox 09/12/17 18:46 98.3 F 92 22 81/45 77 - Laboratory Lab Results: Lab Results 09/12/17 09/12/17 09/12/17 Range/Units 19:33 20:02 20:33 WBC (3.5-10.8) 10^3/ul RBC (4.0-5.4) 10^6/ul Hgb (14.0-18.0) g/dl Hct (42-52) % MCV (80-94) fL MCH (27-31) pg MCHC (31-36) g/dl RDW (10.5-15) % Plt Count (150-450) 10^3/ul MPV (7.4-10.4) um3 Neut % (Auto) (38-83) % Lymph % (Auto) (25-47) % [facility] % (Auto) (0-7) % Eos % (Auto) (0-6) % Baso % (Auto) (0-2) % Absolute Neuts (auto) (1.5-7.7) 10^3/ul Absolute Lymphs (auto) (1.0-4.8) 10^3/ul Absolute Monos (auto) (0-0.8) 10^3/ul Absolute Eos (auto) (0-0.6) 10^3/ul Absolute Basos (auto) (0-0.2) 10^3/ul Absolute Nucleated RBC 10^3/ul Nucleated RBC % INR (Anticoag Therapy) 1.02 (0.77-1.02) APTT 29.4 (26.0-36.3) seconds Patient Temperature Not Reportable ABG pH 7.33 L (7.35-7.45) ABG pH (Temp Correct) Not Reportable ABG pCO2 57 H (35-45) mmHg ABG pCO2 (Temp Corrct Not Reportable ABG pO2 75 L (80-100) mmHg ABG pO2 (Temp Correct Not Reportable ABG HCO3 27.2 (19-31) mmol/L ABG O2 Saturation 96.2 (95-98) % ABG Base Excess 3.0 H (-2.0-2.0) Respiration Rate Not Reportable O2 Delivery Device nc Ventilator Type Not Reportable Vent Mode Not Reportable FiO2 4 Inspiratory Time Not Reportable PEEP Not Reportable Pressure Support Not Reportable Pressure Control Not Reportable EPAP Not Reportable IPAP Not Reportable BiPAP Not Reportable Sodium (133-145) mmol/L Potassium (3.5-5.0) mmol/L Chloride (101-111) mmol/L Carbon Dioxide (22-32) mmol/L Anion Gap (2-11) mmol/L BUN (6-24) mg/dL Creatinine (0.67-1.17) mg/dL Est GFR ( Amer) (>60) Est GFR (Non-Af Amer) (>60) BUN/Creatinine Ratio (8-20) Glucose (70-100) mg/dL Lactic Acid (0.5-2.0) mmol/L Calcium (8.6-10.3) mg/dL Total Bilirubin (0.2-1.0) mg/dL AST (13-39) U/L ALT (7-52) U/L Alkaline Phosphatase (34-104) U/L Troponin I (<0.04) ng/mL B-Natriuretic Peptide ( - 100) pg/mL Total Protein (6.4-8.9) g/dL Albumin (3.2-5.2) g/dL Globulin (2-4) g/dL Albumin/Globulin Ratio (1-3) Influenza A (Rapid) Negative (Negative) Influenza B (Rapid) Positive H (Negative) 09/12/17 09/12/17 09/12/17 Range/Units 20:33 20:33 20:33 WBC 6.2 (3.5-10.8) 10^3/ul RBC 3.94 L (4.0-5.4) 10^6/ul Hgb 11.9 L (14.0-18.0) g/dl Hct 36 L (42-52) % MCV 91 (80-94) fL MCH 30 (27-31) pg MCHC 33 (31-36) g/dl RDW 15 (10.5-15) % Plt Count 133 L (150-450) 10^3/ul MPV 8 (7.4-10.4) um3 Neut % (Auto) 64.1 (38-83) % Lymph % (Auto) 24.0 L (25-47) % [facility] % (Auto) 11.3 H (0-7) % Eos % (Auto) 0.1 (0-6) % Baso % (Auto) 0.5 (0-2) % Absolute Neuts (auto) 4.0 (1.5-7.7) 10^3/ul Absolute Lymphs (auto) 1.5 (1.0-4.8) 10^3/ul Absolute Monos (auto) 0.7 (0-0.8) 10^3/ul Absolute Eos (auto) 0 (0-0.6) 10^3/ul Absolute Basos (auto) 0 (0-0.2) 10^3/ul Absolute Nucleated RBC 0 10^3/ul Nucleated RBC % 0.1 INR (Anticoag Therapy) (0.77-1.02) APTT (26.0-36.3) seconds Patient Temperature ABG pH (7.35-7.45) ABG pH (Temp Correct) ABG pCO2 (35-45) mmHg ABG pCO2 (Temp Corrct ABG pO2 (80-100) mmHg ABG pO2 (Temp Correct ABG HCO3 (19-31) mmol/L ABG O2 Saturation (95-98) % ABG Base Excess (-2.0-2.0) Respiration Rate O2 Delivery Device Ventilator Type Vent Mode FiO2 Inspiratory Time PEEP Pressure Support Pressure Control EPAP IPAP BiPAP Sodium 136 (133-145) mmol/L Potassium 4.4 (3.5-5.0) mmol/L Chloride 102 (101-111) mmol/L Carbon Dioxide 27 (22-32) mmol/L Anion Gap 7 (2-11) mmol/L BUN 46 H (6-24) mg/dL Creatinine 1.47 H (0.67-1.17) mg/dL Est GFR ( Amer) 60.9 (>60) Est GFR (Non-Af Amer) 47.4 (>60) BUN/Creatinine Ratio 31.3 H (8-20) Glucose 104 H (70-100) mg/dL Lactic Acid (0.5-2.0) mmol/L Calcium 8.7 (8.6-10.3) mg/dL Total Bilirubin 0.30 (0.2-1.0) mg/dL AST 32 (13-39) U/L ALT 15 (7-52) U/L Alkaline Phosphatase 187 H (34-104) U/L Troponin I 0.01 (<0.04) ng/mL B-Natriuretic Peptide 167 H ( - 100) pg/mL Total Protein 6.4 (6.4-8.9) g/dL Albumin 3.4 (3.2-5.2) g/dL Globulin 3.0 (2-4) g/dL Albumin/Globulin Ratio 1.1 (1-3) Influenza A (Rapid) (Negative) Influenza B (Rapid) (Negative) 09/12/17 Range/Units 20:33 WBC (3.5-10.8) 10^3/ul RBC (4.0-5.4) 10^6/ul Hgb (14.0-18.0) g/dl Hct (42-52) % MCV (80-94) fL MCH (27-31) pg MCHC (31-36) g/dl RDW (10.5-15) % Plt Count (150-450) 10^3/ul MPV (7.4-10.4) um3 Neut % (Auto) (38-83) % Lymph % (Auto) (25-47) % [facility] % (Auto) (0-7) % Eos % (Auto) (0-6) % Baso % (Auto) (0-2) % Absolute Neuts (auto) (1.5-7.7) 10^3/ul Absolute Lymphs (auto) (1.0-4.8) 10^3/ul Absolute Monos (auto) (0-0.8) 10^3/ul Absolute Eos (auto) (0-0.6) 10^3/ul Absolute Basos (auto) (0-0.2) 10^3/ul Absolute Nucleated RBC 10^3/ul Nucleated RBC % INR (Anticoag Therapy) (0.77-1.02) APTT (26.0-36.3) seconds Patient Temperature ABG pH (7.35-7.45) ABG pH (Temp Correct) ABG pCO2 (35-45) mmHg ABG pCO2 (Temp Corrct ABG pO2 (80-100) mmHg ABG pO2 (Temp Correct ABG HCO3 (19-31) mmol/L ABG O2 Saturation (95-98) % ABG Base Excess (-2.0-2.0) Respiration Rate O2 Delivery Device Ventilator Type Vent Mode FiO2 Inspiratory Time PEEP Pressure Support Pressure Control EPAP IPAP BiPAP Sodium (133-145) mmol/L Potassium (3.5-5.0) mmol/L Chloride (101-111) mmol/L Carbon Dioxide (22-32) mmol/L Anion Gap (2-11) mmol/L BUN (6-24) mg/dL Creatinine (0.67-1.17) mg/dL Est GFR ( Amer) (>60) Est GFR (Non-Af Amer) (>60) BUN/Creatinine Ratio (8-20) Glucose (70-100) mg/dL Lactic Acid 0.7 (0.5-2.0) mmol/L Calcium (8.6-10.3) mg/dL Total Bilirubin (0.2-1.0) mg/dL AST (13-39) U/L ALT (7-52) U/L Alkaline Phosphatase (34-104) U/L Troponin I (<0.04) ng/mL B-Natriuretic Peptide ( - 100) pg/mL Total Protein (6.4-8.9) g/dL Albumin (3.2-5.2) g/dL Globulin (2-4) g/dL Albumin/Globulin Ratio (1-3) Influenza A (Rapid) (Negative) Influenza B (Rapid) (Negative) Result Diagrams: 09/12/17 20:33 09/12/17 20:33 Lab Statement: Any lab studies that have been ordered have been reviewed, and results considered in the medical decision making process. - Radiology Chest XR Xray Interpretation: Positive (See Comments) - IMPRESSION: Hyperinflation. No active disease. Dr. Alba has reviewed this radiology report. Radiology Interpretation Completed By: Radiologist - CT Brain CT CT Interpretation: No Acute Changes - IMPRESSION: Mildly limited examination due to motion artifact. No acute intracranial findings. Dr. Alba has reviewed this radiology report. CT Interpretation Completed By: Radiologist - EKG 19:27 Cardiac Rate: NL EKG Rhythm: Sinus Rhythm - at 81 bpm EKG Interpretation: RBBB Complex Multi-Symp Course/Dx Course Of Treatment: Pt is a 72 y/o male, with PMHx of COPD and currently on 2L of oxygen at home, who presents with increased SOB and disorientation since yesterday. Bloodwork, chest XR, and brain CT obtained. Brain CT is negative. Chest XR shows hyperinflation. In the ED course, the pt was given duoneb, solu- medrol, Tamiflu, vancomycin, and zosyn. I discussed pt care with Dr. Alejo, hospitalist, who has agreed to admit the pt. - Diagnoses Differential Diagnoses/HQI/PQRI: Aspiration, CVA, Metabolic Abnormality, Sepsis , Urinary Tract Infection, Other - influenza Provider Diagnoses: Influenza B, Septic shock, Renal failure, COPD exacerbation - Physician Notifications Discussed Care Of Patient With: Minor Alejo Time Discussed With Above Provider: 21:32 Instructed by Provider To: Other - I discussed pt care with Dr. Alejo, hospitalist, who has agreed to admit the pt. - Critical Care Time Critical Care Time: 30-74 min Discharge - Discharge Plan Condition: Stable Disposition: ADMITTED TO [facility] Referrals: Luis E Garcia MD [Primary Care Provider] - The documentation as recorded by the Niraj muniz Angela accurately reflects the service I personally performed and the decisions made by Parth canchola Emmanuel.
[2017-09-13] MEDS: Levothyroxine TAB* 50 MCG TAB PO SCH ×2 (00:19→05:44)
[2017-09-13 00:58] LABS: EGFR Non-African American 54.1 (>60)
[2017-09-13] MEDS: Albuterol 2.5 MG/3 ML NEB.SOL* (0.083%) INH SCH ×4 (01:10→19:33)
[2017-09-13 03:18] LABS: Urine Appearance Clear; Urine Blood Negative (Negative); Urine Color Yellow; Urine Ketones Negative (Negative); Urine Protein 1+(30 mg/dL) (Negative); Urine Specific Gravity 1.015 (1.010-1.030); Urine Urobilinogen Negative (Negative)
[2017-09-13] MEDS: Heparin VIAL(*) 5000 UNITS/ML VIAL (FIVE THOUSAND) SUBCUT SCH ×3 (05:44→21:41)
[2017-09-13] MEDS ORDERED: methylPREDNISolone SOD 40 MG* 1 ML VIAL IV SCH (06:00)
[2017-09-13 06:47] LABS: EGFR Non-African American 65.5 (>60)
[2017-09-13] MEDS: Tiotropium CAP.INH* CAP.INH/18 MCG (USE ORDER SET !) INH SCH (07:16)
[2017-09-13] MEDS: Mometasone/Formoter 200/5 MDI INH SCH ×2 (07:16→19:33)
[2017-09-13 07:34] LABS: Hematocrit 36 % (42-52); Hemoglobin 11.8 g/dl (14.0-18.0); Mean Corpuscular HGB Conc 33 g/dl (31-36); Mean Corpuscular Hemoglobin 30 pg (27-31); Mean Corpuscular Volume 90 fL (80-94); Red Blood Count 3.95 10^6/ul (4.0-5.4); Red Cell Distribution Width 14 % (10.5-15); White Blood Count 9.3 10^3/ul (3.5-10.8)
[2017-09-13] MEDS: Citalopram TAB* 20 MG PO SCH (08:48)
[2017-09-13] MEDS: Methadone TAB* 10 MG PO SCH ×2 (08:48→20:05)
[2017-09-13] MEDS: NS 0.9% 1000 ML* 1,000 ML IV SCH ×2 (08:48→21:02)
[2017-09-13] MEDS: Omeprazole CAP* 20 MG PO SCH (08:48)
[2017-09-13] MEDS: Oseltamivir CAP* 30 MG CAP PO SCH ×2 (08:55→20:05)
[2017-09-13] MEDS ORDERED: Docusate CAP* 100 MG PO SCH (09:00)
[2017-09-13] MEDS ORDERED: predniSONE TAB* 50 MG PO ONE (09:19)
--- NOTE | 2017-09-13 09:25 | DCNOTE ---
Subjective Date of Service: 09/13/17 Interval History: Feels better, less SOB> He states he uses O2 at night only at home. Objective Active Medications: Acetaminophen (Tylenol Tab*) 650 mg PO Q6H PRN PRN Reason: FEVER/PAIN Albuterol (Ventolin 2.5 Mg/3 Ml Neb.Fern*) 2.5 mg INH Q2H PRN PRN Reason: SOB/WHEEZING Albuterol (Ventolin 2.5 Mg/3 Ml Neb.Fern*) 2.5 mg INH [id number] AWAKE [facility] Last Admin: 09/13/17 07:12 Dose: 2.5 mg Citalopram Hydrobromide (Celexa Tab*) 20 mg PO DAILY [facility] Last Admin: 09/13/17 08:48 Dose: 20 mg Docusate Sodium (Colace Cap*) 200 mg PO BID [facility] Last Admin: 09/13/17 08:48 Dose: 200 mg Heparin Sodium (Porcine) (Heparin Vial(*)) 5,000 units SUBCUT Q8HR [facility] Last Admin: 09/13/17 05:44 Dose: 5,000 units Sodium Chloride (Ns 0.9% 1000 Ml*) 1,000 mls @ 125 mls/hr IV PER RATE [facility] Last Admin: 09/13/17 08:48 Dose: 125 mls/hr Levothyroxine Sodium (Synthroid Tab*) 50 mcg PO 0600 [facility] Last Admin: 09/13/17 05:44 Dose: 50 mcg Melatonin (Melatonin (Nf)) 3 mg PO BEDTIME PRN; Protocol PRN Reason: Sleep Methadone HCl (Dolophine Tab*) 10 mg PO BID [facility] Last Admin: 09/13/17 08:48 Dose: 10 mg Mometasone Furoate/Formoterol Fumar (Dulera 200/5 Mdi*) 2 puff INH BID [facility] Last Admin: 09/13/17 07:16 Dose: 2 puff Omeprazole (Prilosec Cap*) 20 mg PO DAILY [facility] Last Admin: 09/13/17 08:48 Dose: 20 mg Ondansetron HCl (Zofran Inj*) 4 mg IV Q6H PRN PRN Reason: NAUSEA Oseltamivir Phosphate (Tamiflu Cap*) 30 mg PO BID [facility] Stop: 09/17/17 09:01 Last Admin: 09/13/17 08:55 Dose: 30 mg Oxybutynin Chloride (Ditropan Tab*) 5 mg PO QPM [facility] Tiotropium [place] (Spiriva Cap.Inh*) 1 cap INH DAILY [facility] Last Admin: 09/13/17 07:16 Dose: 1 cap Tramadol HCl (Ultram*) 50 mg PO Q6H PRN PRN Reason: PAIN Vital Signs - 8 hr 09/13/17 09/13/17 09/13/17 02:52 07:18 07:30 Temperature 98.0 F 97.6 F Pulse Rate 75 64 72 Respiratory 22 18 16 Rate Blood Pressure 149/65 131/68 (mmHg) O2 Sat by Pulse 98 99 100 Oximetry 09/13/17 08:48 Temperature Pulse Rate Respiratory 18 Rate Blood Pressure (mmHg) O2 Sat by Pulse Oximetry Oxygen Devices in Use Now: None Appearance: Alert, partly up in bed. In good spirits. Looks comfortable. No cough during my visit. Eyes: No Scleral Icterus Neck: NL Appearance and Movements; NL JVP, No Thyroid Enlargement, Masses Respiratory: Symmetrical Chest Expansion and Respiratory Effort, Clear to Percussion, - - mild wheezing all lung jorge Cardiovascular: NL Sounds; No Murmurs; No JVD, RRR, No Edema, - Extremities: No Edema, No Clubbing, Cyanosis, - Skin: No Rash or Ulcers, No Nodules or Sclerosis, - Neurological: Alert and Oriented x 3, NL Sensation, - - [place]VAR[place]O. Very poor hearing. Result Diagrams: 09/13/17 05:42 09/13/17 05:42 Additional Lab and Data: Lab Results 09/12/17 09/12/17 09/12/17 Range/Units 19:33 20:02 20:33 WBC (3.5-10.8) 10^3/ul RBC (4.0-5.4) 10^6/ul Hgb (14.0-18.0) g/dl Hct (42-52) % MCV (80-94) fL MCH (27-31) pg MCHC (31-36) g/dl RDW (10.5-15) % Plt Count (150-450) 10^3/ul MPV (7.4-10.4) um3 Neut % (Auto) (38-83) % Lymph % (Auto) (25-47) % [place] % (Auto) (0-7) % Eos % (Auto) (0-6) % Baso % (Auto) (0-2) % Absolute Neuts (auto) (1.5-7.7) 10^3/ul Absolute Lymphs (auto) (1.0-4.8) 10^3/ul Absolute Monos (auto) (0-0.8) 10^3/ul Absolute Eos (auto) (0-0.6) 10^3/ul Absolute Basos (auto) (0-0.2) 10^3/ul Absolute Nucleated RBC 10^3/ul Nucleated RBC % INR (Anticoag Therapy) 1.02 (0.77-1.02) APTT 29.4 (26.0-36.3) seconds Patient Temperature Not Reportable ABG pH 7.33 L (7.35-7.45) ABG pH (Temp Correct) Not Reportable ABG pCO2 57 H (35-45) mmHg ABG pCO2 (Temp Corrct Not Reportable ABG pO2 75 L (80-100) mmHg ABG pO2 (Temp Correct Not Reportable ABG HCO3 27.2 (19-31) mmol/L ABG O2 Saturation 96.2 (95-98) % ABG Base Excess 3.0 H (-2.0-2.0) Respiration Rate Not Reportable O2 Delivery Device nc Ventilator Type Not Reportable Vent Mode Not Reportable FiO2 4 Inspiratory Time Not Reportable PEEP Not Reportable Pressure Support Not Reportable Pressure Control Not Reportable EPAP Not Reportable IPAP Not Reportable BiPAP Not Reportable Sodium (133-145) mmol/L Potassium (3.5-5.0) mmol/L Chloride (101-111) mmol/L Carbon Dioxide (22-32) mmol/L Anion Gap (2-11) mmol/L BUN (6-24) mg/dL Creatinine (0.67-1.17) mg/dL Est GFR ( Amer) (>60) Est GFR (Non-Af Amer) (>60) BUN/Creatinine Ratio (8-20) Glucose (70-100) mg/dL Lactic Acid (0.5-2.0) mmol/L Calcium (8.6-10.3) mg/dL Total Bilirubin (0.2-1.0) mg/dL AST (13-39) U/L ALT (7-52) U/L Alkaline Phosphatase (34-104) U/L Troponin I (<0.04) ng/mL B-Natriuretic Peptide ( - 100) pg/mL Total Protein (6.4-8.9) g/dL Albumin (3.2-5.2) g/dL Globulin (2-4) g/dL Albumin/Globulin Ratio (1-3) Influenza A (Rapid) Negative (Negative) Influenza B (Rapid) Positive H (Negative) 09/12/17 09/12/17 09/12/17 Range/Units 20:33 20:33 20:33 WBC 6.2 (3.5-10.8) 10^3/ul RBC 3.94 L (4.0-5.4) 10^6/ul Hgb 11.9 L (14.0-18.0) g/dl Hct 36 L (42-52) % MCV 91 (80-94) fL MCH 30 (27-31) pg MCHC 33 (31-36) g/dl RDW 15 (10.5-15) % Plt Count 133 L (150-450) 10^3/ul MPV 8 (7.4-10.4) um3 Neut % (Auto) 64.1 (38-83) % Lymph % (Auto) 24.0 L (25-47) % [place] % (Auto) 11.3 H (0-7) % Eos % (Auto) 0.1 (0-6) % Baso % (Auto) 0.5 (0-2) % Absolute Neuts (auto) 4.0 (1.5-7.7) 10^3/ul Absolute Lymphs (auto) 1.5 (1.0-4.8) 10^3/ul Absolute Monos (auto) 0.7 (0-0.8) 10^3/ul Absolute Eos (auto) 0 (0-0.6) 10^3/ul Absolute Basos (auto) 0 (0-0.2) 10^3/ul Absolute Nucleated RBC 0 10^3/ul Nucleated RBC % 0.1 INR (Anticoag Therapy) (0.77-1.02) APTT (26.0-36.3) seconds Patient Temperature ABG pH (7.35-7.45) ABG pH (Temp Correct) ABG pCO2 (35-45) mmHg ABG pCO2 (Temp Corrct ABG pO2 (80-100) mmHg ABG pO2 (Temp Correct ABG HCO3 (19-31) mmol/L ABG O2 Saturation (95-98) % ABG Base Excess (-2.0-2.0) Respiration Rate O2 Delivery Device Ventilator Type Vent Mode FiO2 Inspiratory Time PEEP Pressure Support Pressure Control EPAP IPAP BiPAP Sodium 136 (133-145) mmol/L Potassium 4.4 (3.5-5.0) mmol/L Chloride 102 (101-111) mmol/L Carbon Dioxide 27 (22-32) mmol/L Anion Gap 7 (2-11) mmol/L BUN 46 H (6-24) mg/dL Creatinine 1.47 H (0.67-1.17) mg/dL Est GFR ( Amer) 60.9 (>60) Est GFR (Non-Af Amer) 47.4 (>60) BUN/Creatinine Ratio 31.3 H (8-20) Glucose 104 H (70-100) mg/dL Lactic Acid (0.5-2.0) mmol/L Calcium 8.7 (8.6-10.3) mg/dL Total Bilirubin 0.30 (0.2-1.0) mg/dL AST 32 (13-39) U/L ALT 15 (7-52) U/L Alkaline Phosphatase 187 H (34-104) U/L Troponin I 0.01 (<0.04) ng/mL B-Natriuretic Peptide 167 H ( - 100) pg/mL Total Protein 6.4 (6.4-8.9) g/dL Albumin 3.4 (3.2-5.2) g/dL Globulin 3.0 (2-4) g/dL Albumin/Globulin Ratio 1.1 (1-3) Influenza A (Rapid) (Negative) Influenza B (Rapid) (Negative) 09/12/17 Range/Units 20:33 WBC (3.5-10.8) 10^3/ul RBC (4.0-5.4) 10^6/ul Hgb (14.0-18.0) g/dl Hct (42-52) % MCV (80-94) fL MCH (27-31) pg MCHC (31-36) g/dl RDW (10.5-15) % Plt Count (150-450) 10^3/ul MPV (7.4-10.4) um3 Neut % (Auto) (38-83) % Lymph % (Auto) (25-47) % [place] % (Auto) (0-7) % Eos % (Auto) (0-6) % Baso % (Auto) (0-2) % Absolute Neuts (auto) (1.5-7.7) 10^3/ul Absolute Lymphs (auto) (1.0-4.8) 10^3/ul Absolute Monos (auto) (0-0.8) 10^3/ul Absolute Eos (auto) (0-0.6) 10^3/ul Absolute Basos (auto) (0-0.2) 10^3/ul Absolute Nucleated RBC 10^3/ul Nucleated RBC % INR (Anticoag Therapy) (0.77-1.02) APTT (26.0-36.3) seconds Patient Temperature ABG pH (7.35-7.45) ABG pH (Temp Correct) ABG pCO2 (35-45) mmHg ABG pCO2 (Temp Corrct ABG pO2 (80-100) mmHg ABG pO2 (Temp Correct ABG HCO3 (19-31) mmol/L ABG O2 Saturation (95-98) % ABG Base Excess (-2.0-2.0) Respiration Rate O2 Delivery Device Ventilator Type Vent Mode FiO2 Inspiratory Time PEEP Pressure Support Pressure Control EPAP IPAP BiPAP Sodium (133-145) mmol/L Potassium (3.5-5.0) mmol/L Chloride (101-111) mmol/L Carbon Dioxide (22-32) mmol/L Anion Gap (2-11) mmol/L BUN (6-24) mg/dL Creatinine (0.67-1.17) mg/dL Est GFR ( Amer) (>60) Est GFR (Non-Af Amer) (>60) BUN/Creatinine Ratio (8-20) Glucose (70-100) mg/dL Lactic Acid 0.7 (0.5-2.0) mmol/L Calcium (8.6-10.3) mg/dL Total Bilirubin (0.2-1.0) mg/dL AST (13-39) U/L ALT (7-52) U/L Alkaline Phosphatase (34-104) U/L Troponin I (<0.04) ng/mL B-Natriuretic Peptide ( - 100) pg/mL Total Protein (6.4-8.9) g/dL Albumin (3.2-5.2) g/dL Globulin (2-4) g/dL Albumin/Globulin Ratio (1-3) Influenza A (Rapid) (Negative) Influenza B (Rapid) (Negative) Assess/Plan/Problems-Billing Assessment: - Patient Problems (1) COPD exacerbation Current Visit: No Status: Acute Code(s): J44.1 - CHRONIC OBSTRUCTIVE PULMONARY DISEASE W (ACUTE) EXACERBATION SNOMED Code(s): 958886916046411 Comment: O2 sat on RA by me 80-82%. I recommend O2 at home 23 1/2 hrs per day. - Continue dulera, and Albuterol Inhalers PRN, Duoneb by neb at home PRN, prednisone taper. - May benefit from a Pulmonology consult outpatient. (2) Influenza B Current Visit: Yes Status: Acute Code(s): J10.1 - FLU DUE TO OTH IDENT INFLUENZA VIRUS W OTH RESP MANIFEST SNOMED Code(s): 89843044 Comment: Complete course oseltamavir as outpt, dose adjusted for CKD. (3) Hypothyroidism Current Visit: No Status: Chronic Code(s): E03.9 - HYPOTHYROIDISM, UNSPECIFIED SNOMED Code(s): 20111835 Comment: Continue Levothyroxine. TSH add on 09/13. Status and Disposition: Discharge now. Fup Dr. Garcia.
--- NOTE | 2017-09-13 09:51 | PN ---
Progress Note - Progress Note Date of Service: 09/13/17 Note: Time spent on discharge 45 minutes.
[2017-09-13] MEDS ORDERED: Iodixanol* (CONTRAST) 320 MG/ML 100 ML SDV IV SCH (13:30)
--- NOTE | 2017-09-13 14:21 | RAD ---
Indication: Hypoxia, elevated d-dimer. Contrast: Administered 67.2 ml of VISIPAQUE 320 mg/ml CTA of the chest was performed after IV contrast administration. Coronal and sagittal reconstructed images were obtained. Coronal and sagittal reconstructed images were obtained. The pulmonary arterial tree is well opacified. There are no filling defects present to suggest pulmonary embolus. There is no mediastinal or hilar adenopathy noted. The heart demonstrates no pericardial effusion. The aorta demonstrates no evidence of aneurysmal dilatation or aortic dissection. The trachea and major bronchi appear patent. There is some airspace disease likely representing some pneumonitis in the left lower lobe posteriorly. No pleural fluid is identified. Small pleural-based nodule in the right middle lobe measures 2 to 3 mm. No other focal nodules are identified. The visualized abdominal organs are grossly unremarkable. IMPRESSION: No definite pulmonary embolus is noted. There may be some airspace disease in the left lower lobe posteriorly which May represent some pneumonitis. No definite nodules are identified.
[2017-09-13] MEDS: Oxybutynin TAB* 5 MG PO SCH (17:44)
--- NOTE | 2017-09-13 23:37 | DS ---
CC: Dr. Garcia * DISCHARGE SUMMARY: DATE OF ADMISSION: 09/12/17 DATE OF DISCHARGE: 09/13/17 HISTORY: This 72-year-old man presented with fatigue and confusion. He uses oxygen at home at night chronically. He has a number of inhalers and has a diagnosis of COPD. He had presented with 2 days of cough, congestion, increased fatigue, and confusion. He was felt to have COPD exacerbation. He was given intravenous steroids, tiotropium, nebulizers, mometasone formoterol inhaler and he was advised to quit smoking. He did fairly well. He was stable. He was found to have influenza B. He received 1 dose of oseltamivir 75 mg and he will finish with 30 mg b.i.d., adjusted for his renal insufficiency. His renal function actually did improve while in the hospital with IV hydration. The patient's condition was not felt to be appropriate for discharge on 09/13/17 and discharge was cancelled. FINAL DIAGNOSES as of 09/12/17: 1. Influenza B. 2. Chronic obstructive pulmonary disease with exacerbation. 3. Poor hearing. 4. Chronic pain syndrome. 5. Hypothyroidism. Note, TSH is pending. 6. Overactive bladder. 7. Gastroesophageal reflux disease. 8. Anxiety. MEDICATIONS as of 09/12/17: 1. Mometasone/formoterol 200/5 two puffs b.i.d. 2. Oseltamivir 30 mg b.i.d. until finished. 3. Prednisone 10 mg taper from 4 to 0 over 4 days. 4. Albuterol, ipratropium by nebulizer every 4 hours p.r.n. 5. Methadone 10 mg b.i.d. 6. Levothyroxine 50 mcg daily. 7. Docusate 100 mg b.i.d. 8. Albuterol inhaler 1 to 2 puffs every 4 hours p.r.n. 9. Oxybutynin 5 mg h.s. 10. Ascorbic acid 1000 mg daily. 11. Escitalopram 10 mg daily. 12. Lorazepam 1 mg t.i.d. p.r.n. 13. Omeprazole 20 mg daily. [id number]/[facility] [place] #: [id number] [facility]
[2017-09-14] MEDS: Albuterol 2.5 MG/3 ML NEB.SOL* (0.083%) INH SCH ×2 (01:14→07:18)
[2017-09-14] MEDS: NS 0.9% 1000 ML* 1,000 ML IV SCH ×2 (03:09→21:03)
[2017-09-14] MEDS: Levothyroxine TAB* 50 MCG TAB PO SCH (05:47)
[2017-09-14] MEDS: Heparin VIAL(*) 5000 UNITS/ML VIAL (FIVE THOUSAND) SUBCUT SCH ×3 (05:47→21:04)
[2017-09-14] MEDS: Tiotropium CAP.INH* CAP.INH/18 MCG (USE ORDER SET !) INH SCH (07:20)
[2017-09-14] MEDS: Mometasone/Formoter 200/5 MDI INH SCH ×2 (07:20→19:33)
[2017-09-14] MEDS: Citalopram TAB* 20 MG PO SCH (08:57)
[2017-09-14] MEDS: Methadone TAB* 10 MG PO SCH ×2 (08:57→21:04)
[2017-09-14] MEDS: Oseltamivir CAP* 30 MG CAP PO SCH ×2 (08:57→21:03)
[2017-09-14] MEDS: Omeprazole CAP* 20 MG PO SCH (08:58)
[2017-09-14] MEDS ORDERED: predniSONE TAB* 50 MG PO SCH (09:00)
--- NOTE | 2017-09-14 11:59 | PN ---
Subjective Date of Service: 09/14/17 Interval History: Pt seen at bedside. He was resting with eyes closed and awakes easily to voice. There was concern from the son reporting he is confused still. The pt is able to tell me where he is and why he is hospitalized. He is not able to tell me the date, year or who the president is. He reports he "feels weak" but wants to get OOB. He was transferred from the bed to chair - he is noted to have a fairly steady gait but required assistance. He reports he feels "winded" with movement. 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 He denies sputum production. He refuses nicotine patch and has no desire to quit. He denies CP. No N/V/D. No fevers/chills. Reports he is hungry. Objective Active Medications: Acetaminophen (Tylenol Tab*) 650 mg PO Q6H PRN PRN Reason: FEVER/PAIN Albuterol (Ventolin 2.5 Mg/3 Ml Neb.Fern*) 2.5 mg INH Q2H PRN PRN Reason: SOB/WHEEZING Albuterol (Ventolin 2.5 Mg/3 Ml Neb.Fern*) 2.5 mg INH [id number] AWAKE [facility] Last Admin: 09/14/17 07:18 Dose: 2.5 mg Citalopram Hydrobromide (Celexa Tab*) 20 mg PO DAILY [facility] Last Admin: 09/14/17 08:57 Dose: 20 mg Heparin Sodium (Porcine) (Heparin Vial(*)) 5,000 units SUBCUT Q8HR [facility] Last Admin: 09/14/17 05:47 Dose: 5,000 units Sodium Chloride (Ns 0.9% 1000 Ml*) 1,000 mls @ 125 mls/hr IV PER RATE [facility] Last Admin: 09/14/17 03:09 Dose: 125 mls/hr Iodixanol (Visipaque* 320 (Contrast)) 67 ml IV ONCE [facility] Stop: 09/15/17 13:29 Last Admin: 09/13/17 14:02 Dose: 67 ml Levothyroxine Sodium (Synthroid Tab*) 50 mcg PO 0600 [facility] Last Admin: 09/14/17 05:47 Dose: 50 mcg Methadone HCl (Dolophine Tab*) 10 mg PO BID [facility] Last Admin: 09/14/17 08:57 Dose: 10 mg Mometasone Furoate/Formoterol Fumar (Dulera 200/5 Mdi*) 2 puff INH BID [facility] Last Admin: 09/14/17 07:20 Dose: 2 puff Omeprazole (Prilosec Cap*) 20 mg PO DAILY [facility] Last Admin: 09/14/17 08:58 Dose: 20 mg Ondansetron HCl (Zofran Inj*) 4 mg IV Q6H PRN PRN Reason: NAUSEA Oseltamivir Phosphate (Tamiflu Cap*) 30 mg PO BID [facility] Stop: 09/17/17 09:01 Last Admin: 09/14/17 08:57 Dose: 30 mg Oxybutynin Chloride (Ditropan Tab*) 5 mg PO QPM [facility] Last Admin: 09/13/17 17:44 Dose: 5 mg Prednisone (Deltasone Tab*) 50 mg PO DAILY [facility] Last Admin: 09/14/17 08:57 Dose: 50 mg Tiotropium [place] (Spiriva Cap.Inh*) 1 cap INH DAILY [facility] Last Admin: 09/14/17 07:20 Dose: 1 cap Tramadol HCl (Ultram*) 50 mg PO Q6H PRN PRN Reason: PAIN Vital Signs - 8 hr 09/14/17 09/14/17 09/14/17 07:21 07:40 08:00 Temperature 97.9 F Pulse Rate 70 75 Respiratory 18 16 18 Rate Blood Pressure 136/91 (mmHg) O2 Sat by Pulse 99 98 Oximetry 09/14/17 09/14/17 08:57 11:30 Temperature Pulse Rate Respiratory 18 18 Rate Blood Pressure (mmHg) O2 Sat by Pulse Oximetry Oxygen Devices in Use Now: Nasal Cannula Appearance: 72 yo well developed aline alert, oriented with mild noted confusion. NAD Eyes: No Scleral Icterus, PERRLA Ears/Nose/Mouth/Throat: NL Teeth, Lips, Gums, - - Dry MM Neck: NL Appearance and Movements; NL JVP Respiratory: Symmetrical Chest Expansion and Respiratory Effort, - - expirtaory wheezing noted b/l Cardiovascular: NL Sounds; No Murmurs; No JVD, RRR, No Edema Abdominal: NL Sounds; No Tenderness; No Distention Extremities: No Edema, No Clubbing, Cyanosis Skin: No Rash or Ulcers, No Nodules or Sclerosis Neurological: NL Sensation, NL Gait, NL Muscle Strength and Tone, - - alert & oriented Lines/Tubes/Other Access: Clean, Dry and Intact Peripheral IV Nutrition: Taking PO's Result Diagrams: 09/14/17 12:47 09/14/17 12:47 Additional Lab and Data: Lab Results 09/12/17 09/12/17 09/12/17 Range/Units 19:33 20:02 20:33 WBC (3.5-10.8) 10^3/ul RBC (4.0-5.4) 10^6/ul Hgb (14.0-18.0) g/dl Hct (42-52) % MCV (80-94) fL MCH (27-31) pg MCHC (31-36) g/dl RDW (10.5-15) % Plt Count (150-450) 10^3/ul MPV (7.4-10.4) um3 Neut % (Auto) (38-83) % Lymph % (Auto) (25-47) % [place] % (Auto) (0-7) % Eos % (Auto) (0-6) % Baso % (Auto) (0-2) % Absolute Neuts (auto) (1.5-7.7) 10^3/ul Absolute Lymphs (auto) (1.0-4.8) 10^3/ul Absolute Monos (auto) (0-0.8) 10^3/ul Absolute Eos (auto) (0-0.6) 10^3/ul Absolute Basos (auto) (0-0.2) 10^3/ul Absolute Nucleated RBC 10^3/ul Nucleated RBC % INR (Anticoag Therapy) 1.02 (0.77-1.02) APTT 29.4 (26.0-36.3) seconds Patient Temperature Not Reportable ABG pH 7.33 L (7.35-7.45) ABG pH (Temp Correct) Not Reportable ABG pCO2 57 H (35-45) mmHg ABG pCO2 (Temp Corrct Not Reportable ABG pO2 75 L (80-100) mmHg ABG pO2 (Temp Correct Not Reportable ABG HCO3 27.2 (19-31) mmol/L ABG O2 Saturation 96.2 (95-98) % ABG Base Excess 3.0 H (-2.0-2.0) Respiration Rate Not Reportable O2 Delivery Device nc Ventilator Type Not Reportable Vent Mode Not Reportable FiO2 4 Inspiratory Time Not Reportable PEEP Not Reportable Pressure Support Not Reportable Pressure Control Not Reportable EPAP Not Reportable IPAP Not Reportable BiPAP Not Reportable Sodium (133-145) mmol/L Potassium (3.5-5.0) mmol/L Chloride (101-111) mmol/L Carbon Dioxide (22-32) mmol/L Anion Gap (2-11) mmol/L BUN (6-24) mg/dL Creatinine (0.67-1.17) mg/dL Est GFR ( Amer) (>60) Est GFR (Non-Af Amer) (>60) BUN/Creatinine Ratio (8-20) Glucose (70-100) mg/dL Lactic Acid (0.5-2.0) mmol/L Calcium (8.6-10.3) mg/dL Total Bilirubin (0.2-1.0) mg/dL AST (13-39) U/L ALT (7-52) U/L Alkaline Phosphatase (34-104) U/L Troponin I (<0.04) ng/mL B-Natriuretic Peptide ( - 100) pg/mL Total Protein (6.4-8.9) g/dL Albumin (3.2-5.2) g/dL Globulin (2-4) g/dL Albumin/Globulin Ratio (1-3) Influenza A (Rapid) Negative (Negative) Influenza B (Rapid) Positive H (Negative) 09/12/17 09/12/17 09/12/17 Range/Units 20:33 20:33 20:33 WBC 6.2 (3.5-10.8) 10^3/ul RBC 3.94 L (4.0-5.4) 10^6/ul Hgb 11.9 L (14.0-18.0) g/dl Hct 36 L (42-52) % MCV 91 (80-94) fL MCH 30 (27-31) pg MCHC 33 (31-36) g/dl RDW 15 (10.5-15) % Plt Count 133 L (150-450) 10^3/ul MPV 8 (7.4-10.4) um3 Neut % (Auto) 64.1 (38-83) % Lymph % (Auto) 24.0 L (25-47) % [place] % (Auto) 11.3 H (0-7) % Eos % (Auto) 0.1 (0-6) % Baso % (Auto) 0.5 (0-2) % Absolute Neuts (auto) 4.0 (1.5-7.7) 10^3/ul Absolute Lymphs (auto) 1.5 (1.0-4.8) 10^3/ul Absolute Monos (auto) 0.7 (0-0.8) 10^3/ul Absolute Eos (auto) 0 (0-0.6) 10^3/ul Absolute Basos (auto) 0 (0-0.2) 10^3/ul Absolute Nucleated RBC 0 10^3/ul Nucleated RBC % 0.1 INR (Anticoag Therapy) (0.77-1.02) APTT (26.0-36.3) seconds Patient Temperature ABG pH (7.35-7.45) ABG pH (Temp Correct) ABG pCO2 (35-45) mmHg ABG pCO2 (Temp Corrct ABG pO2 (80-100) mmHg ABG pO2 (Temp Correct ABG HCO3 (19-31) mmol/L ABG O2 Saturation (95-98) % ABG Base Excess (-2.0-2.0) Respiration Rate O2 Delivery Device Ventilator Type Vent Mode FiO2 Inspiratory Time PEEP Pressure Support Pressure Control EPAP IPAP BiPAP Sodium 136 (133-145) mmol/L Potassium 4.4 (3.5-5.0) mmol/L Chloride 102 (101-111) mmol/L Carbon Dioxide 27 (22-32) mmol/L Anion Gap 7 (2-11) mmol/L BUN 46 H (6-24) mg/dL Creatinine 1.47 H (0.67-1.17) mg/dL Est GFR ( Amer) 60.9 (>60) Est GFR (Non-Af Amer) 47.4 (>60) BUN/Creatinine Ratio 31.3 H (8-20) Glucose 104 H (70-100) mg/dL Lactic Acid (0.5-2.0) mmol/L Calcium 8.7 (8.6-10.3) mg/dL Total Bilirubin 0.30 (0.2-1.0) mg/dL AST 32 (13-39) U/L ALT 15 (7-52) U/L Alkaline Phosphatase 187 H (34-104) U/L Troponin I 0.01 (<0.04) ng/mL B-Natriuretic Peptide 167 H ( - 100) pg/mL Total Protein 6.4 (6.4-8.9) g/dL Albumin 3.4 (3.2-5.2) g/dL Globulin 3.0 (2-4) g/dL Albumin/Globulin Ratio 1.1 (1-3) Influenza A (Rapid) (Negative) Influenza B (Rapid) (Negative) 09/12/17 Range/Units 20:33 WBC (3.5-10.8) 10^3/ul RBC (4.0-5.4) 10^6/ul Hgb (14.0-18.0) g/dl Hct (42-52) % MCV (80-94) fL MCH (27-31) pg MCHC (31-36) g/dl RDW (10.5-15) % Plt Count (150-450) 10^3/ul MPV (7.4-10.4) um3 Neut % (Auto) (38-83) % Lymph % (Auto) (25-47) % [place] % (Auto) (0-7) % Eos % (Auto) (0-6) % Baso % (Auto) (0-2) % Absolute Neuts (auto) (1.5-7.7) 10^3/ul Absolute Lymphs (auto) (1.0-4.8) 10^3/ul Absolute Monos (auto) (0-0.8) 10^3/ul Absolute Eos (auto) (0-0.6) 10^3/ul Absolute Basos (auto) (0-0.2) 10^3/ul Absolute Nucleated RBC 10^3/ul Nucleated RBC % INR (Anticoag Therapy) (0.77-1.02) APTT (26.0-36.3) seconds Patient Temperature ABG pH (7.35-7.45) ABG pH (Temp Correct) ABG pCO2 (35-45) mmHg ABG pCO2 (Temp Corrct ABG pO2 (80-100) mmHg ABG pO2 (Temp Correct ABG HCO3 (19-31) mmol/L ABG O2 Saturation (95-98) % ABG Base Excess (-2.0-2.0) Respiration Rate O2 Delivery Device Ventilator Type Vent Mode FiO2 Inspiratory Time PEEP Pressure Support Pressure Control EPAP IPAP BiPAP Sodium (133-145) mmol/L Potassium (3.5-5.0) mmol/L Chloride (101-111) mmol/L Carbon Dioxide (22-32) mmol/L Anion Gap (2-11) mmol/L BUN (6-24) mg/dL Creatinine (0.67-1.17) mg/dL Est GFR ( Amer) (>60) Est GFR (Non-Af Amer) (>60) BUN/Creatinine Ratio (8-20) Glucose (70-100) mg/dL Lactic Acid 0.7 (0.5-2.0) mmol/L Calcium (8.6-10.3) mg/dL Total Bilirubin (0.2-1.0) mg/dL AST (13-39) U/L ALT (7-52) U/L Alkaline Phosphatase (34-104) U/L Troponin I (<0.04) ng/mL B-Natriuretic Peptide ( - 100) pg/mL Total Protein (6.4-8.9) g/dL Albumin (3.2-5.2) g/dL Globulin (2-4) g/dL Albumin/Globulin Ratio (1-3) Influenza A (Rapid) (Negative) Influenza B (Rapid) (Negative) Assess/Plan/Problems-Billing Assessment: - Patient Problems (1) Influenza B Comment: Met SIRS criteria on admission now resolved. Continues to have mild confusion. Afebrile. Continue course oseltamavir, dose adjusted for CKD. Blood cx NTD Appears dry on exam; Continue NS @ 100 ml hr (2) Pneumonitis Comment: Elevated DDIMER noted on admission - CTA showing no PE but possible pneumonitis - suspect viral - no fevers, no leukocytosis. Will add on procalcitonin. (3) IRIS (acute kidney injury) Comment: Resolved with IVFs (4) COPD exacerbation Comment: - Some expiratory wheezing noted; long-term hx and current use of tobacco. No sputum production. - O2 sat on 3L 98% - plan to titrate oxygen to 90-94%. Uses O2 at home at bedtime. - Continue dulera, and Albuterol Inhalers PRN, Duoneb by neb PRN, prednisone taper. - Obtain Sputum cx - May benefit from a Pulmonology consult outpatient. (5) Hyperkalemia Comment: K+ 5.2 yesterday - recheck labs now (6) Depression Comment: - Continue home medication regimen (7) Chronic pain Comment: Continue methadone and bowel regimem (8) GERD (gastroesophageal reflux disease) Comment: Continue omeprazole (9) Hypothyroidism Comment: Continue Levothyroxine. TSH wnls (10) DVT prophylaxis Comment: SQ heparin (11) Full code status Status and Disposition: Continue inpatient for influenza and confusion. Stable.
[2017-09-14 13:24] LABS: ABS Basophils 0 10^3/ul (0-0.2); ABS Eosinophils 0 10^3/ul (0-0.6); ABS Lymphocytes 0.5 10^3/ul (1.0-4.8); ABS Monocytes 0.6 10^3/ul (0-0.8); ABS Neutrophils 8.1 10^3/ul (1.5-7.7); ABS Nucleated RBC 0 10^3/ul; Eosinophil % 0 % (0-6); Hematocrit 35 % (42-52); Hemoglobin 11.3 g/dl (14.0-18.0); Lymphocyte % 5.9 % (25-47); Mean Corpuscular HGB Conc 33 g/dl (31-36); Mean Corpuscular Hemoglobin 30 pg (27-31); Mean Corpuscular Volume 91 fL (80-94); Mean Platelet Volume 8 um3 (7.4-10.4); Nucleated Red Blood Cells % 0.1; Platelet Count 166 10^3/ul (150-450); Red Blood Count 3.79 10^6/ul (4.0-5.4); Red Cell Distribution Width 15 % (10.5-15); White Blood Count 9.3 10^3/ul (3.5-10.8)
[2017-09-14 13:38] LABS: EGFR Non-African American 107.9 (>60)
[2017-09-14] MEDS: Ondansetron INJ* 2 MG/ML VIAL IV PRN ×2 (16:38→22:35)
[2017-09-14] MEDS: Oxybutynin TAB* 5 MG PO SCH (17:18)
[2017-09-14] MEDS: Acetaminophen TAB* 325 MG PO PRN (22:35)
[2017-09-15] MEDS: traMADol TAB* 50 MG PO PRN (03:23)
[2017-09-15] MEDS: Heparin VIAL(*) 5000 UNITS/ML VIAL (FIVE THOUSAND) SUBCUT SCH ×3 (05:34→21:41)
[2017-09-15] MEDS: Levothyroxine TAB* 50 MCG TAB PO SCH (05:34)
[2017-09-15 05:44] LABS: Hematocrit 35 % (42-52); Hemoglobin 11.4 g/dl (14.0-18.0); Mean Corpuscular HGB Conc 33 g/dl (31-36); Mean Corpuscular Hemoglobin 30 pg (27-31); Mean Corpuscular Volume 90 fL (80-94); Mean Platelet Volume 8 um3 (7.4-10.4); Platelet Count 179 10^3/ul (150-450); Red Blood Count 3.83 10^6/ul (4.0-5.4); Red Cell Distribution Width 15 % (10.5-15); White Blood Count 9.6 10^3/ul (3.5-10.8)
[2017-09-15 06:15] LABS: ABS Basophils 0 10^3/ul (0-0.2); ABS Eosinophils 0 10^3/ul (0-0.6); ABS Lymphocytes 1.1 10^3/ul (1.0-4.8); ABS Neutrophils 7.5 10^3/ul (1.5-7.7); ABS Nucleated RBC 0 10^3/ul; Eosinophil % 0 % (0-6); Nucleated Red Blood Cells % 0
[2017-09-15] MEDS: Tiotropium CAP.INH* CAP.INH/18 MCG (USE ORDER SET !) INH SCH (07:22)
[2017-09-15] MEDS: Mometasone/Formoter 200/5 MDI INH SCH ×2 (07:22→21:17)
[2017-09-15] MEDS ORDERED: predniSONE TAB* 20 MG PO SCH (09:00)
[2017-09-15] MEDS: Citalopram TAB* 20 MG PO SCH (10:24)
[2017-09-15] MEDS: Omeprazole CAP* 20 MG PO SCH (10:24)
[2017-09-15] MEDS: Methadone TAB* 10 MG PO SCH ×2 (10:24→20:37)
[2017-09-15] MEDS: NS 0.9% 1000 ML* 1,000 ML IV SCH (10:24)
[2017-09-15] MEDS: Oseltamivir CAP* 30 MG CAP PO SCH ×2 (10:24→20:38)
[2017-09-15] MEDS: Acetaminophen TAB* 325 MG PO PRN (13:45)
--- NOTE | 2017-09-15 16:07 | PN ---
Subjective Date of Service: 09/15/17 Interval History: Pt reports he feels better today, continues to have some generalized weakness, reports LE and UE edema today (on IVFs). No CP/SOB. No cough. Reports appetite is better today. Steady on feet. Son at bedside, reports he appears much better today but continues to have some mild confusion. Complains of neck pain today from "the bed" - no fevers. Objective Active Medications: Acetaminophen (Tylenol Tab*) 650 mg PO Q6H PRN PRN Reason: FEVER/PAIN Last Admin: 09/15/17 13:45 Dose: 650 mg Albuterol (Ventolin 2.5 Mg/3 Ml Neb.Fern*) 2.5 mg INH Q2H PRN PRN Reason: SOB/WHEEZING Last Admin: 09/14/17 12:25 Dose: 2.5 mg Citalopram Hydrobromide (Celexa Tab*) 20 mg PO DAILY [facility] Last Admin: 09/15/17 10:24 Dose: 20 mg Heparin Sodium (Porcine) (Heparin Vial(*)) 5,000 units SUBCUT Q8HR [facility] Last Admin: 09/15/17 13:22 Dose: 5,000 units Levothyroxine Sodium (Synthroid Tab*) 50 mcg PO 0600 [facility] Last Admin: 09/15/17 05:34 Dose: 50 mcg Methadone HCl (Dolophine Tab*) 10 mg PO BID [facility] Last Admin: 09/15/17 10:24 Dose: 10 mg Mometasone Furoate/Formoterol Fumar (Dulera 200/5 Mdi*) 2 puff INH BID [facility] Last Admin: 09/15/17 07:22 Dose: 2 puff Omeprazole (Prilosec Cap*) 20 mg PO DAILY [facility] Last Admin: 09/15/17 10:24 Dose: 20 mg Ondansetron HCl (Zofran Inj*) 4 mg IV Q6H PRN PRN Reason: NAUSEA Last Admin: 09/14/17 22:35 Dose: 4 mg Oseltamivir Phosphate (Tamiflu Cap*) 30 mg PO BID [facility] Stop: 09/17/17 09:01 Last Admin: 09/15/17 10:24 Dose: 30 mg Oxybutynin Chloride (Ditropan Tab*) 5 mg PO QPM [facility] Last Admin: 02/24/18 17:18 Dose: 5 mg Prednisone (Deltasone Tab*) 40 mg PO DAILY [facility] Last Admin: 09/15/17 10:25 Dose: 40 mg Tiotropium [place] (Spiriva Cap.Inh*) 1 cap INH DAILY [facility] Last Admin: 09/15/17 07:22 Dose: 1 cap Tramadol HCl (Ultram*) 50 mg PO Q6H PRN PRN Reason: PAIN Last Admin: 09/15/17 03:23 Dose: 50 mg Vital Signs - 8 hr 09/15/17 09/15/17 10:24 13:23 Respiratory 18 16 Rate Oxygen Devices in Use Now: Nasal Cannula Appearance: well developed elderly male A+O to self and place but not to date Eyes: No Scleral Icterus, PERRLA Neck: NL Appearance and Movements; NL JVP Respiratory: Symmetrical Chest Expansion and Respiratory Effort, Clear to Auscultation Cardiovascular: NL Sounds; No Murmurs; No JVD, RRR, - - trace LE edema in wrist/ hands and LE b/l Abdominal: NL Sounds; No Tenderness; No Distention Extremities: No Clubbing, Cyanosis Skin: No Rash or Ulcers, No Nodules or Sclerosis Neurological: NL Sensation, NL Gait, NL Muscle Strength and Tone, - - A+O Lines/Tubes/Other Access: Clean, Dry and Intact Peripheral IV Nutrition: Taking PO's Result Diagrams: 09/15/17 05:29 09/14/17 12:47 Additional Lab and Data: Lab Results 09/12/17 09/12/17 09/12/17 Range/Units 19:33 20:02 20:33 WBC (3.5-10.8) 10^3/ul RBC (4.0-5.4) 10^6/ul Hgb (14.0-18.0) g/dl Hct (42-52) % MCV (80-94) fL MCH (27-31) pg MCHC (31-36) g/dl RDW (10.5-15) % Plt Count (150-450) 10^3/ul MPV (7.4-10.4) um3 Neut % (Auto) (38-83) % Lymph % (Auto) (25-47) % [place] % (Auto) (0-7) % Eos % (Auto) (0-6) % Baso % (Auto) (0-2) % Absolute Neuts (auto) (1.5-7.7) 10^3/ul Absolute Lymphs (auto) (1.0-4.8) 10^3/ul Absolute Monos (auto) (0-0.8) 10^3/ul Absolute Eos (auto) (0-0.6) 10^3/ul Absolute Basos (auto) (0-0.2) 10^3/ul Absolute Nucleated RBC 10^3/ul Nucleated RBC % INR (Anticoag Therapy) 1.02 (0.77-1.02) APTT 29.4 (26.0-36.3) seconds Patient Temperature Not Reportable ABG pH 7.33 L (7.35-7.45) ABG pH (Temp Correct) Not Reportable ABG pCO2 57 H (35-45) mmHg ABG pCO2 (Temp Corrct Not Reportable ABG pO2 75 L (80-100) mmHg ABG pO2 (Temp Correct Not Reportable ABG HCO3 27.2 (19-31) mmol/L ABG O2 Saturation 96.2 (95-98) % ABG Base Excess 3.0 H (-2.0-2.0) Respiration Rate Not Reportable O2 Delivery Device nc Ventilator Type Not Reportable Vent Mode Not Reportable FiO2 4 Inspiratory Time Not Reportable PEEP Not Reportable Pressure Support Not Reportable Pressure Control Not Reportable EPAP Not Reportable IPAP Not Reportable BiPAP Not Reportable Sodium (133-145) mmol/L Potassium (3.5-5.0) mmol/L Chloride (101-111) mmol/L Carbon Dioxide (22-32) mmol/L Anion Gap (2-11) mmol/L BUN (6-24) mg/dL Creatinine (0.67-1.17) mg/dL Est GFR ( Amer) (>60) Est GFR (Non-Af Amer) (>60) BUN/Creatinine Ratio (8-20) Glucose (70-100) mg/dL Lactic Acid (0.5-2.0) mmol/L Calcium (8.6-10.3) mg/dL Total Bilirubin (0.2-1.0) mg/dL AST (13-39) U/L ALT (7-52) U/L Alkaline Phosphatase (34-104) U/L Troponin I (<0.04) ng/mL B-Natriuretic Peptide ( - 100) pg/mL Total Protein (6.4-8.9) g/dL Albumin (3.2-5.2) g/dL Globulin (2-4) g/dL Albumin/Globulin Ratio (1-3) Influenza A (Rapid) Negative (Negative) Influenza B (Rapid) Positive H (Negative) 09/12/17 09/12/17 09/12/17 Range/Units 20:33 20:33 20:33 WBC 6.2 (3.5-10.8) 10^3/ul RBC 3.94 L (4.0-5.4) 10^6/ul Hgb 11.9 L (14.0-18.0) g/dl Hct 36 L (42-52) % MCV 91 (80-94) fL MCH 30 (27-31) pg MCHC 33 (31-36) g/dl RDW 15 (10.5-15) % Plt Count 133 L (150-450) 10^3/ul MPV 8 (7.4-10.4) um3 Neut % (Auto) 64.1 (38-83) % Lymph % (Auto) 24.0 L (25-47) % [place] % (Auto) 11.3 H (0-7) % Eos % (Auto) 0.1 (0-6) % Baso % (Auto) 0.5 (0-2) % Absolute Neuts (auto) 4.0 (1.5-7.7) 10^3/ul Absolute Lymphs (auto) 1.5 (1.0-4.8) 10^3/ul Absolute Monos (auto) 0.7 (0-0.8) 10^3/ul Absolute Eos (auto) 0 (0-0.6) 10^3/ul Absolute Basos (auto) 0 (0-0.2) 10^3/ul Absolute Nucleated RBC 0 10^3/ul Nucleated RBC % 0.1 INR (Anticoag Therapy) (0.77-1.02) APTT (26.0-36.3) seconds Patient Temperature ABG pH (7.35-7.45) ABG pH (Temp Correct) ABG pCO2 (35-45) mmHg ABG pCO2 (Temp Corrct ABG pO2 (80-100) mmHg ABG pO2 (Temp Correct ABG HCO3 (19-31) mmol/L ABG O2 Saturation (95-98) % ABG Base Excess (-2.0-2.0) Respiration Rate O2 Delivery Device Ventilator Type Vent Mode FiO2 Inspiratory Time PEEP Pressure Support Pressure Control EPAP IPAP BiPAP Sodium 136 (133-145) mmol/L Potassium 4.4 (3.5-5.0) mmol/L Chloride 102 (101-111) mmol/L Carbon Dioxide 27 (22-32) mmol/L Anion Gap 7 (2-11) mmol/L BUN 46 H (6-24) mg/dL Creatinine 1.47 H (0.67-1.17) mg/dL Est GFR ( Amer) 60.9 (>60) Est GFR (Non-Af Amer) 47.4 (>60) BUN/Creatinine Ratio 31.3 H (8-20) Glucose 104 H (70-100) mg/dL Lactic Acid (0.5-2.0) mmol/L Calcium 8.7 (8.6-10.3) mg/dL Total Bilirubin 0.30 (0.2-1.0) mg/dL AST 32 (13-39) U/L ALT 15 (7-52) U/L Alkaline Phosphatase 187 H (34-104) U/L Troponin I 0.01 (<0.04) ng/mL B-Natriuretic Peptide 167 H ( - 100) pg/mL Total Protein 6.4 (6.4-8.9) g/dL Albumin 3.4 (3.2-5.2) g/dL Globulin 3.0 (2-4) g/dL Albumin/Globulin Ratio 1.1 (1-3) Influenza A (Rapid) (Negative) Influenza B (Rapid) (Negative) 09/12/17 Range/Units 20:33 WBC (3.5-10.8) 10^3/ul RBC (4.0-5.4) 10^6/ul Hgb (14.0-18.0) g/dl Hct (42-52) % MCV (80-94) fL MCH (27-31) pg MCHC (31-36) g/dl RDW (10.5-15) % Plt Count (150-450) 10^3/ul MPV (7.4-10.4) um3 Neut % (Auto) (38-83) % Lymph % (Auto) (25-47) % [place] % (Auto) (0-7) % Eos % (Auto) (0-6) % Baso % (Auto) (0-2) % Absolute Neuts (auto) (1.5-7.7) 10^3/ul Absolute Lymphs (auto) (1.0-4.8) 10^3/ul Absolute Monos (auto) (0-0.8) 10^3/ul Absolute Eos (auto) (0-0.6) 10^3/ul Absolute Basos (auto) (0-0.2) 10^3/ul Absolute Nucleated RBC 10^3/ul Nucleated RBC % INR (Anticoag Therapy) (0.77-1.02) APTT (26.0-36.3) seconds Patient Temperature ABG pH (7.35-7.45) ABG pH (Temp Correct) ABG pCO2 (35-45) mmHg ABG pCO2 (Temp Corrct ABG pO2 (80-100) mmHg ABG pO2 (Temp Correct ABG HCO3 (19-31) mmol/L ABG O2 Saturation (95-98) % ABG Base Excess (-2.0-2.0) Respiration Rate O2 Delivery Device Ventilator Type Vent Mode FiO2 Inspiratory Time PEEP Pressure Support Pressure Control EPAP IPAP BiPAP Sodium (133-145) mmol/L Potassium (3.5-5.0) mmol/L Chloride (101-111) mmol/L Carbon Dioxide (22-32) mmol/L Anion Gap (2-11) mmol/L BUN (6-24) mg/dL Creatinine (0.67-1.17) mg/dL Est GFR ( Amer) (>60) Est GFR (Non-Af Amer) (>60) BUN/Creatinine Ratio (8-20) Glucose (70-100) mg/dL Lactic Acid 0.7 (0.5-2.0) mmol/L Calcium (8.6-10.3) mg/dL Total Bilirubin (0.2-1.0) mg/dL AST (13-39) U/L ALT (7-52) U/L Alkaline Phosphatase (34-104) U/L Troponin I (<0.04) ng/mL B-Natriuretic Peptide ( - 100) pg/mL Total Protein (6.4-8.9) g/dL Albumin (3.2-5.2) g/dL Globulin (2-4) g/dL Albumin/Globulin Ratio (1-3) Influenza A (Rapid) (Negative) Influenza B (Rapid) (Negative) Assess/Plan/Problems-Billing Assessment: 72 yo male with PMH of current tobacco abuse, COPD o2 dependent, hypothyroidism who presented from home with increased confusion, congestion, and increased fatigue found to have influenza B and IRIS - Patient Problems (1) Influenza B Comment: Met SIRS criteria on admission now resolved. Continues to have mild confusion. Afebrile. Continue course oseltamavir, dose adjusted for CKD. Blood cx NTD DC N saline (2) Pneumonitis Comment: Elevated DDIMER noted on admission - CTA showing no PE but possible pneumonitis - suspect viral - no fevers, no leukocytosis. procalcitonin normal (3) IRIS (acute kidney injury) Comment: Resolved with IVFs (4) COPD exacerbation Comment: - Some expiratory wheezing noted; long-term hx and current use of tobacco. No sputum production. - O2 sat on 3L 98% - plan to titrate oxygen to 90-94%. Uses O2 at home at bedtime. - Continue dulera, and Albuterol Inhalers PRN, Duoneb by neb PRN, prednisone taper. - Obtain Sputum cx - May benefit from a Pulmonology consult outpatient. (5) Hyperkalemia Comment: resolved (6) Depression Comment: - Continue home medication regimen (7) Chronic pain Comment: Continue methadone and bowel regimem (8) GERD (gastroesophageal reflux disease) Comment: Continue omeprazole (9) Hypothyroidism Comment: Continue Levothyroxine. TSH wnls (10) DVT prophylaxis Comment: SQ heparin (11) Full code status Status and Disposition: Continue inpatient for influenza and confusion. Home when stable, possibly tomorrow.
[2017-09-15] MEDS: Oxybutynin TAB* 5 MG PO SCH (17:37)
[2017-09-16] MEDS: traMADol TAB* 50 MG PO PRN ×2 (00:24→21:37)
[2017-09-16] MEDS: Heparin VIAL(*) 5000 UNITS/ML VIAL (FIVE THOUSAND) SUBCUT SCH ×3 (05:24→21:39)
[2017-09-16] MEDS: Levothyroxine TAB* 50 MCG TAB PO SCH (05:30)
[2017-09-16] MEDS: Omeprazole CAP* 20 MG PO SCH ×2 (08:30→21:38)
[2017-09-16] MEDS: Methadone TAB* 10 MG PO SCH ×2 (08:30→21:36)
[2017-09-16] MEDS: Citalopram TAB* 20 MG PO SCH (08:30)
[2017-09-16] MEDS: Oseltamivir CAP* 30 MG CAP PO SCH ×2 (08:30→21:38)
--- NOTE | 2017-09-16 08:51 | PN ---
Subjective Date of Service: 09/16/17 Interval History: Mr. Cannon reports that he doesn't feel so great today. He reports some shortness of breath with coughing. He denies other complaint including chest pain, nausea, or abdominal pain. He is appropriate with me during conversation , however, his grandson notes that he remains somewhat confused and not at baseline. Objective Active Medications: Acetaminophen (Tylenol Tab*) 650 mg PO Q6H PRN Albuterol (Ventolin 2.5 Mg/3 Ml Neb.Fern*) 2.5 mg INH Q2H PRN Citalopram Hydrobromide (Celexa Tab*) 20 mg PO DAILY [facility] Heparin Sodium (Porcine) (Heparin Vial(*)) 5,000 units SUBCUT Q8HR [facility] Levothyroxine Sodium (Synthroid Tab*) 50 mcg PO 0600 [facility] Methadone HCl (Dolophine Tab*) 10 mg PO BID [facility] Mometasone Furoate/Formoterol Fumar (Dulera 200/5 Mdi*) 2 puff INH BID [facility] Omeprazole (Prilosec Cap*) 20 mg PO DAILY [facility] Ondansetron HCl (Zofran Inj*) 4 mg IV Q6H PRN Oseltamivir Phosphate (Tamiflu Cap*) 30 mg PO BID [facility] Oxybutynin Chloride (Ditropan Tab*) 5 mg PO QPM [facility] Tiotropium [place] (Spiriva Cap.Inh*) 1 cap INH DAILY [facility] Tramadol HCl (Ultram*) 50 mg PO Q6H PRN Vital Signs: Temp Pulse Resp BP Pulse Ox 98.5 F 82 16 143/78 99 09/16/17 07:33 09/16/17 07:33 09/16/17 08:45 09/16/17 07:33 09/16/17 07:33 Oxygen Devices in Use Now: Nasal Cannula Appearance: Male sitting up in chair in NAD Eyes: No Scleral Icterus Ears/Nose/Mouth/Throat: Mucous Membranes Moist Neck: Trachea Midline Respiratory: Symmetrical Chest Expansion and Respiratory Effort, - - Rhonchi bilaterally Cardiovascular: NL Sounds; No Murmurs; No JVD, No Edema Abdominal: NL Sounds; No Tenderness; No Distention Lymphatic: No Cervical Adenopathy Extremities: No Edema Skin: No Rash or Ulcers Neurological: Alert and Oriented x 3, NL Muscle Strength and Tone Nutrition: Taking PO's Result Diagrams: 09/16/17 09:03 09/16/17 09:03 Microbiology and Other Data: . Assess/Plan/Problems-Billing Assessment: Mr. Cannon is a 72 yo male with PMH of current tobacco abuse, COPD O2 dependent , hypothyroidism who presented from home with increased confusion, congestion, and increased fatigue found to have sepsis secondary to influenza B with IRIS. - Patient Problems (1) Influenza B Comment: - Slow improvement with persistent SOB with ambulation. Afebrile. - Continue course tamilfu, dose adjusted for CKD. (2) COPD exacerbation Comment: - Slow improvement noted. - O2 sat on 3L 98% - plan to titrate oxygen to 90-94%. Uses O2 at home at bedtime. - Continue dulera, and Albuterol Inhalers PRN, Duoneb by neb PRN. Completed course of prednisone. (3) Acute respiratory acidosis Comment: - Resolved. - Present on arrival, secondary to mild COPD exacerbation, sepsis, flu. (4) Sepsis Comment: - Resolved. - Present on arrival per qSOFA score. - Secondary to flu. (5) IRIS (acute kidney injury) Comment: - Resolved with IVFs (6) Depression Comment: - Continue home medication regimen (7) Chronic pain Status: Chronic Comment: - Continue methadone and bowel regimen (8) Hypothyroidism Comment: - Continue Levothyroxine. (9) BPH (benign prostatic hyperplasia) Comment: - Continue flomax (10) GERD (gastroesophageal reflux disease) Comment: - Continue omeprazole (11) DVT prophylaxis Comment: - SQ heparin (12) Full code status Comment: Status and Disposition: Continue inpatient for influenza and confusion. Home when stable
[2017-09-16] MEDS: Mometasone/Formoter 200/5 MDI INH SCH ×2 (08:53→20:55)
[2017-09-16] MEDS: Tiotropium CAP.INH* CAP.INH/18 MCG (USE ORDER SET !) INH SCH (08:53)
[2017-09-16 09:33] LABS: Hematocrit 42 % (42-52); Hemoglobin 13.6 g/dl (14.0-18.0); Mean Corpuscular HGB Conc 33 g/dl (31-36); Mean Corpuscular Hemoglobin 29 pg (27-31); Mean Corpuscular Volume 90 fL (80-94); Mean Platelet Volume 7 um3 (7.4-10.4); Platelet Count 257 10^3/ul (150-450); Red Blood Count 4.65 10^6/ul (4.0-5.4); Red Cell Distribution Width 14 % (10.5-15); White Blood Count 11.2 10^3/ul (3.5-10.8)
[2017-09-16 09:44] LABS: EGFR Non-African American 123.6 (>60)
[2017-09-16 10:02] LABS: ABS Basophils 0 10^3/ul (0-0.2); ABS Eosinophils 0 10^3/ul (0-0.6); ABS Lymphocytes 1.4 10^3/ul (1.0-4.8); ABS Monocytes 1.2 10^3/ul (0-0.8); ABS Neutrophils 8.5 10^3/ul (1.5-7.7); ABS Nucleated RBC 0 10^3/ul; Eosinophil % 0 % (0-6); Lymphocyte % 12.9 % (25-47); Nucleated Red Blood Cells % 0
[2017-09-16] MEDS: Oxybutynin TAB* 5 MG PO SCH (17:26)
--- NOTE | 2017-09-16 19:21 | RAD ---
Indication: Upper abdominal pain. Inability to tolerate oral intake. Comparison: September 13, 2017 CT chest. Technique: Supine and LEFT lateral decubitus abdomen views. Report: Elevated lung volumes. Negative for free air. Unremarkable bowel gas pattern. Moderate volume of formed stool in the RIGHT colon. Pelvic phleboliths. No suspicious calcifications or mass effect. IMPRESSION: No abdominal pelvic pathologic process evident.
[2017-09-16] MEDS: Sucralfate TAB* 1 GM PO SCH (21:39)
[2017-09-17] MEDS: Levothyroxine TAB* 50 MCG TAB PO SCH (05:56)
[2017-09-17] MEDS: Heparin VIAL(*) 5000 UNITS/ML VIAL (FIVE THOUSAND) SUBCUT SCH ×3 (05:56→21:31)
[2017-09-17] MEDS: Tiotropium CAP.INH* CAP.INH/18 MCG (USE ORDER SET !) INH SCH ×2 (06:26→08:12)
[2017-09-17] MEDS: Mometasone/Formoter 200/5 MDI INH SCH ×3 (06:27→20:55)
--- NOTE | 2017-09-17 07:30 | RAD ---
HISTORY: Right upper quadrant pain COMPARISONS: None TECHNIQUE: Multiple transverse and longitudinal ultrasound images were obtained of the right upper quadrant of the abdomen using grayscale, color Doppler, and spectral Doppler imaging. FINDINGS: The study is somewhat technically limited secondary to patient condition. LIVER: The liver is normal in shape, size, contour, and echogenicity. There are no focal parenchymal masses. There is normal monophasic hepatopedal flow of the portal vein on Doppler imaging. BILIARY TREE: There is no intrahepatic or extrahepatic biliary dilatation. The common duct measures 0.2 cm. GALLBLADDER: The gallbladder is well-visualized. There is no cholelithiasis, gallbladder wall thickening, pericholecystic fluid, or sonographic Potts sign. PANCREAS: The pancreas is not well visualized. RIGHT KIDNEY: The right kidney is normal in shape, size, contour, and echogenicity. There is no hydronephrosis or nephrolithiasis. The right kidney measures 11.5 x 4.2 x 5 cm. AORTA AND IVC: The aorta and IVC are grossly normal. FLUID: There are no pleural effusions. There is no free fluid within the hepatorenal recess. OTHER FINDINGS: None. IMPRESSION: LIMITED STUDY. NO ACUTE SONOGRAPHIC PATHOLOGY OF THE VISUALIZED PORTION OF THE ABDOMEN.
[2017-09-17] MEDS ORDERED: Polyethylene Glycol 3350* 17 GM PACKET PO PRN (08:38)
[2017-09-17] MEDS: Methadone TAB* 10 MG PO SCH ×2 (09:35→20:35)
[2017-09-17] MEDS: Senna TAB PO SCH (09:35)
[2017-09-17] MEDS: traMADol TAB* 50 MG PO PRN ×2 (09:35→20:35)
[2017-09-17] MEDS: Omeprazole CAP* 20 MG PO SCH ×2 (09:35→15:30)
[2017-09-17] MEDS: Oseltamivir CAP* 30 MG CAP PO SCH (09:36)
[2017-09-17] MEDS: Citalopram TAB* 20 MG PO SCH (09:36)
[2017-09-17] MEDS: Sucralfate TAB* 1 GM PO SCH ×3 (09:36→20:35)
[2017-09-17] MEDS: Docusate CAP* 100 MG PO PRN (09:36)
[2017-09-17] MEDS: Ondansetron INJ* 2 MG/ML VIAL IV PRN (09:43)
[2017-09-17 11:21] LABS: EGFR Non-African American 144.2 (>60)
[2017-09-17] MEDS: cefTRIAXone(*) 1 GM in NS 0.9% 50 ML* 50 ML IVPB SCH (15:30)
--- NOTE | 2017-09-17 15:57 | PN ---
Subjective Date of Service: 09/17/17 Interval History: Mr. Cannon reports some epigastric pain with palpation but is not able to offer further information. His son notes that he has had complaint of epigastric pain for some time. He has had an EGD in the past which showed a "thin stomache" per his son. He denies other complaint. Nursing staff note that he became quite dyspneic just with ambulating back to his chair after his shower. Objective Active Medications: Acetaminophen (Tylenol Tab*) 650 mg PO Q6H PRN Albuterol (Ventolin 2.5 Mg/3 Ml Neb.Fern*) 2.5 mg INH Q2H PRN Citalopram Hydrobromide (Celexa Tab*) 20 mg PO DAILY [facility] Docusate Sodium (Colace Cap*) 100 mg PO BID PRN Heparin Sodium (Porcine) (Heparin Vial(*)) 5,000 units SUBCUT Q8HR [facility]O Ceftriaxone Sodium 1 gm/ (Sodium Chloride) 50 mls @ 200 mls/hr IVPB Q24H [facility] Levothyroxine Sodium (Synthroid Tab*) 50 mcg PO 0600 [facility] Methadone HCl (Dolophine Tab*) 10 mg PO BID [facility] Mometasone Furoate/Formoterol Fumar (Dulera 200/5 Mdi*) 2 puff INH BID [facility] Omeprazole (Prilosec Cap*) 20 mg PO BID AC [facility] Ondansetron HCl (Zofran Inj*) 4 mg IV Q6H PRN Oxybutynin Chloride (Ditropan Tab*) 5 mg PO QPM [facility] Polyethylene Glycol/Electrolytes (Miralax*) 17 gm PO DAILY PRN Senna (Senokot Tab*) 1 tab PO DAILY [facility] Sucralfate (Carafate*) 1 gm PO TID [facility]O Tiotropium [place] (Spiriva Cap.Inh*) 1 cap INH DAILY [facility] Tramadol HCl (Ultram*) 50 mg PO Q6H PRN Vital Signs: Temp Pulse Resp BP Pulse Ox 98.7 F 81 16 123/90 95 09/17/17 03:11 09/17/17 07:51 09/17/17 13:03 09/17/17 07:51 09/17/17 07:51 Oxygen Devices in Use Now: Nasal Cannula Appearance: Male sitting up in chair in NAD Eyes: No Scleral Icterus Ears/Nose/Mouth/Throat: Mucous Membranes Moist Neck: Trachea Midline Respiratory: Symmetrical Chest Expansion and Respiratory Effort, Clear to Auscultation Cardiovascular: NL Sounds; No Murmurs; No JVD, No Edema Abdominal: NL Sounds; No Tenderness; No Distention Lymphatic: No Cervical Adenopathy Extremities: No Edema Skin: No Rash or Ulcers Neurological: NL Muscle Strength and Tone, - - Alert, oriented to self and place , very hard of hearing Nutrition: Taking PO's Result Diagrams: 09/16/17 09:03 09/17/17 10:42 Additional Lab and Data: . Microbiology and Other Data: . Assess/Plan/Problems-Billing Assessment: Mr. Cannon is a 72 yo male with PMH of current tobacco abuse, COPD O2 dependent , hypothyroidism who presented from home with increased confusion, congestion, and increased fatigue found to have sepsis secondary to influenza B with IRIS, now with strep pneumo per sputum culture. - Patient Problems (1) Pneumonia Comment: - Patient peristently SOB despite treatment for flu and COPD. - Sputum now shows step pneumo. - Plan to treat with ceftriaxone for now since patient is inconsistently tolerating po intake. (2) Influenza B Comment: - Slow improvement, now with strep pneumo. - Continue course tamilfu, dose adjusted for CKD. (3) COPD exacerbation Comment: - No wheezing on exam. - O2 sat on 3L 98%. Uses O2 at home at bedtime. - Continue dulera, albuterol prn, and duoneb prn. Completed course of prednisone. (4) Epigastric pain Comment: - Now appears to be chronic issue. - Plan to continue increased omeprazole and carafate (newly added). - GB US negative. Abd xray negative. LFTs and lipase normal. (5) Acute respiratory acidosis Comment: - Resolved. - Present on arrival, secondary to mild COPD exacerbation, sepsis, flu. (6) Sepsis Comment: - Resolved. - Present on arrival per qSOFA score. - Secondary to flu. (7) IRIS (acute kidney injury) Comment: - Resolved with IVFs (8) Depression Comment: - Continue home medication regimen (9) Chronic pain Status: Chronic Comment: - Continue methadone and bowel regimen (10) Hypothyroidism Comment: - Continue Levothyroxine. (11) BPH (benign prostatic hyperplasia) Comment: - Continue flomax (12) GERD (gastroesophageal reflux disease) Comment: - Continue omeprazole (13) DVT prophylaxis Comment: - SQ heparin (14) Full code status Comment: Status and Disposition: Inpatient. Home when stable
[2017-09-17] MEDS ORDERED: Bisacodyl SUPP* 10 MG SUPP PR PRN (18:00)
[2017-09-17] MEDS ORDERED: Magnesium Hydroxide LIQ* 30 ML UDC PO PRN (18:00)
[2017-09-17] MEDS ORDERED: Magnesium Hydroxide LIQ* 30 ML UDC ONE (18:03)
[2017-09-17] MEDS: Oxybutynin TAB* 5 MG PO SCH (18:04)
[2017-09-18] MEDS: Levothyroxine TAB* 50 MCG TAB PO SCH (06:08)
[2017-09-18] MEDS: Heparin VIAL(*) 5000 UNITS/ML VIAL (FIVE THOUSAND) SUBCUT SCH ×3 (06:09→21:19)
[2017-09-18 07:54] LABS: Hematocrit 40 % (42-52); Hemoglobin 13.4 g/dl (14.0-18.0); Mean Corpuscular HGB Conc 34 g/dl (31-36); Mean Corpuscular Hemoglobin 30 pg (27-31); Mean Corpuscular Volume 89 fL (80-94); Red Blood Count 4.47 10^6/ul (4.0-5.4); Red Cell Distribution Width 14 % (10.5-15); White Blood Count 18.7 10^3/ul (3.5-10.8)
[2017-09-18] MEDS: Mometasone/Formoter 200/5 MDI INH SCH ×2 (08:20→19:34)
[2017-09-18] MEDS: Tiotropium CAP.INH* CAP.INH/18 MCG (USE ORDER SET !) INH SCH (08:22)
[2017-09-18] MEDS: Omeprazole CAP* 20 MG PO SCH ×2 (08:56→17:31)
[2017-09-18] MEDS: Methadone TAB* 10 MG PO SCH ×2 (08:56→20:22)
[2017-09-18] MEDS: Citalopram TAB* 20 MG PO SCH (08:56)
[2017-09-18] MEDS: Sucralfate TAB* 1 GM PO SCH ×3 (08:56→20:26)
[2017-09-18] MEDS: Senna TAB PO SCH (08:56)
[2017-09-18 10:06] LABS: Mean Platelet Volume 8 um3 (7.4-10.4); Platelet Count 333 10^3/ul (150-450)
[2017-09-18 10:08] LABS: Monocytes % 2 % (0-7)
--- NOTE | 2017-09-18 11:10 | PN ---
Subjective Date of Service: 09/18/17 Interval History: Patient seen and examined at bedside. Denies fever, chills, shortness of breath at rest, chest discomfort, N/V/D. Pt states that he still has not yet moved his bowels, he is unsure of the last time he moved his bowels. Pt states that he uses 2L via NC at home and has not been ambulating much here to know if he has shortness of breath with exertion. Family History: Unchanged from Admission Social History: Unchanged from Admission Past Medical History: Unchanged from Admission Objective Active Medications: Acetaminophen (Tylenol Tab*) 650 mg PO Q6H PRN Reason: FEVER/PAIN Albuterol (Ventolin 2.5 Mg/3 Ml Neb.Fern*) 2.5 mg INH Q2H PRN Reason: SOB/ WHEEZING Bisacodyl (Dulcolax Supp*) 10 mg [place] DAILY PRN Reason: CONSTIPATION Citalopram Hydrobromide (Celexa Tab*) 20 mg PO DAILY BETO Docusate Sodium (Colace Cap*) 100 mg PO BID PRN Reason: CONSTIPATION Heparin Sodium (Porcine) (Heparin Vial(*)) 5,000 units SUBCUT Q8HR BETO Ceftriaxone Sodium 1 gm/ (Sodium Chloride) 50 mls @ 200 mls/hr IVPB Q24H BETO Levothyroxine Sodium (Synthroid Tab*) 50 mcg PO 0600 BETO Magnesium Hydroxide (Milk Of Magnesia Liq*) 30 ml PO Q6H PRN Reason: CONSTIPATION Methadone HCl (Dolophine Tab*) 10 mg PO BID BETO Mometasone Furoate/Formoterol Fumar (Dulera 200/5 Mdi*) 2 puff INH BID BETO Omeprazole (Prilosec Cap*) 20 mg PO BID AC BETO Ondansetron HCl (Zofran Inj*) 4 mg IV Q6H PRN Reason: NAUSEA Oxybutynin Chloride (Ditropan Tab*) 5 mg PO QPM BETO Polyethylene Glycol/Electrolytes (Miralax*) 17 gm PO DAILY PRN Reason: CONSTIPATION Senna (Senokot Tab*) 1 tab PO DAILY BETO Sucralfate (Carafate*) 1 gm PO TID BETO Tiotropium [place] (Spiriva Cap.Inh*) 1 cap INH DAILY BETO Tramadol HCl (Ultram*) 50 mg PO Q6H PRN Reason: PAIN Vital Signs - 8 hr 09/18/17 09/18/17 09/18/17 05:45 07:40 08:00 Temperature 98.7 F Pulse Rate 78 88 Respiratory 16 16 Rate Blood Pressure 132/73 (mmHg) O2 Sat by Pulse 96 Oximetry 09/18/17 08:56 Temperature Pulse Rate Respiratory 16 Rate Blood Pressure (mmHg) O2 Sat by Pulse Oximetry Oxygen Devices in Use Now: Nasal Cannula - 3L Appearance: NAD, sitting up on the side of the bed Respiratory: Symmetrical Chest Expansion and Respiratory Effort, - - Bilateral exp wheezing Cardiovascular: NL Sounds; No Murmurs; No JVD, RRR Abdominal: NL Sounds; No Tenderness; No Distention Extremities: No Edema Skin: No Rash or Ulcers Neurological: Alert and Oriented x 3, NL Muscle Strength and Tone Lines/Tubes/Other Access: Clean, Dry and Intact Peripheral IV - site benign Nutrition: Taking PO's Result Diagrams: 09/18/17 06:48 09/17/17 10:42 Additional Lab and Data: . Microbiology and Other Data: . Assess/Plan/Problems-Billing Assessment: Mr. Cannon is a 72 yo male with PMH of current tobacco abuse, COPD O2 dependent , hypothyroidism who presented from home with increased confusion, congestion, and increased fatigue found to have sepsis secondary to influenza B with IRIS, now with strep pneumo per sputum culture. - Patient Problems (1) Pneumonia Code(s): J18.9 - PNEUMONIA, UNSPECIFIED ORGANISM SNOMED Code(s): 115778731 Comment: - Patient peristently SOB despite treatment for flu and COPD, but improving. - Afebrile with persistent leukocytosis - Sputum now shows step pneumniae and rothia mucilaginosa. - Continue ceftriaxone for now since patient is inconsistently tolerating po intake. (2) Influenza B Code(s): J10.1 - FLU DUE TO OTH IDENT INFLUENZA VIRUS W OTH RESP MANIFEST SNOMED Code(s): 41727119 Comment: - Slow improvement, now with strep pneumo. - Completed course of tamilfu. (3) COPD exacerbation Code(s): J44.1 - CHRONIC OBSTRUCTIVE PULMONARY DISEASE W (ACUTE) EXACERBATION SNOMED Code(s): 001768467419599 Comment: - Wheezing on exam today. - O2 sat on 3L 96-98%. Uses O2 at 2L baseline at home, wears at bedtime. - Continue dulera, albuterol prn, and duoneb prn. Completed course of prednisone. (4) Constipation Code(s): K59.00 - CONSTIPATION, UNSPECIFIED SNOMED Code(s): 94876673 Comment: - Continue laxitives PRN (5) Epigastric pain Code(s): R10.13 - EPIGASTRIC PAIN SNOMED Code(s): 28541587 Comment: - Now appears to be chronic issue. - Plan to continue increased omeprazole and carafate (newly added). - GB US negative. Abd xray negative. LFTs and lipase normal. (6) Acute respiratory acidosis Code(s): E87.2 - ACIDOSIS SNOMED Code(s): 41961723 Comment: - Resolved. - Present on arrival, secondary to mild COPD exacerbation, sepsis, flu. (7) Sepsis Comment: - Resolved. - Present on arrival per qSOFA score. - Secondary to flu. (8) IRIS (acute kidney injury) Code(s): N17.9 - ACUTE KIDNEY FAILURE, UNSPECIFIED SNOMED Code(s): 71825331 Comment: - Resolved with IVFs (9) Depression Code(s): F32.9 - MAJOR DEPRESSIVE DISORDER, SINGLE EPISODE, UNSPECIFIED SNOMED Code(s): 20721194 Comment: - Continue home medication regimen (10) Chronic pain Code(s): G89.29 - OTHER CHRONIC PAIN SNOMED Code(s): 49258897 Comment: - Continue methadone and bowel regimen (11) BPH (benign prostatic hyperplasia) Code(s): N40.0 - BENIGN PROSTATIC HYPERPLASIA WITHOUT LOWER URINRY TRACT SYMP SNOMED Code(s): 318973574 Comment: - Continue flomax (12) GERD (gastroesophageal reflux disease) Code(s): K21.9 - GASTRO-ESOPHAGEAL REFLUX DISEASE WITHOUT ESOPHAGITIS SNOMED Code(s): 653957209 Comment: - Continue omeprazole and carafate (13) DVT prophylaxis Code(s): CIZ6610 - SNOMED Code(s): 399369411 Comment: - SQ heparin (14) Full code status Code(s): Z78.9 - OTHER SPECIFIED HEALTH STATUS SNOMED Code(s): 497390981 Status and Disposition: Inpatient. Discharge to home when medically stable, possibly in the AM.
[2017-09-18] MEDS: cefTRIAXone(*) 1 GM in NS 0.9% 50 ML* 50 ML IVPB SCH (15:20)
[2017-09-18] MEDS: Oxybutynin TAB* 5 MG PO SCH (17:31)
[2017-09-18] MEDS: Docusate CAP* 100 MG PO PRN (20:22)
[2017-09-19] MEDS: Heparin VIAL(*) 5000 UNITS/ML VIAL (FIVE THOUSAND) SUBCUT SCH (05:25)
[2017-09-19] MEDS: Levothyroxine TAB* 50 MCG TAB PO SCH (05:26)
[2017-09-19 06:30] LABS: ABS Basophils 0 10^3/ul (0-0.2); ABS Eosinophils 0.1 10^3/ul (0-0.6); ABS Monocytes 0.7 10^3/ul (0-0.8); ABS Neutrophils 8.6 10^3/ul (1.5-7.7); ABS Nucleated RBC 0 10^3/ul; Eosinophil % 0.5 % (0-6); Hematocrit 36 % (42-52); Hemoglobin 12.5 g/dl (14.0-18.0); Lymphocyte % 9.9 % (25-47); Mean Corpuscular HGB Conc 34 g/dl (31-36); Mean Corpuscular Hemoglobin 30 pg (27-31); Mean Corpuscular Volume 88 fL (80-94); Mean Platelet Volume 7 um3 (7.4-10.4); Nucleated Red Blood Cells % 0.1; Platelet Count 395 10^3/ul (150-450); Red Blood Count 4.13 10^6/ul (4.0-5.4); Red Cell Distribution Width 14 % (10.5-15); White Blood Count 10.4 10^3/ul (3.5-10.8)
[2017-09-19] MEDS: Tiotropium CAP.INH* CAP.INH/18 MCG (USE ORDER SET !) INH SCH (08:22)
[2017-09-19] MEDS: Mometasone/Formoter 200/5 MDI INH SCH (08:23)
[2017-09-19] MEDS: Omeprazole CAP* 20 MG PO SCH (09:46)
[2017-09-19] MEDS: Senna TAB PO SCH (09:46)
[2017-09-19] MEDS: Citalopram TAB* 20 MG PO SCH (09:46)
[2017-09-19] MEDS: Methadone TAB* 10 MG PO SCH (09:46)
[2017-09-19] MEDS: Sucralfate TAB* 1 GM PO SCH (09:50)
--- NOTE | 2017-09-19 11:55 | PN ---
Subjective Date of Service: 09/19/17 Interval History: Patient seen and examined at bedside. Denies fever, chills, shortness of breath (above baseline), chest discomfort, N/V/D. Pt continues to be constipated and has been encouraged to drink plenty of fluids and use laxatives as needed. Discharge instructions discussed with Pt's son at bedside. Family History: Unchanged from Admission Social History: Unchanged from Admission Past Medical History: Unchanged from Admission Objective Active Medications: Acetaminophen (Tylenol Tab*) 650 mg PO Q6H PRN Reason: FEVER/PAIN Albuterol (Ventolin 2.5 Mg/3 Ml Neb.Fern*) 2.5 mg INH Q2H PRN Reason: SOB/ WHEEZING Bisacodyl (Dulcolax Supp*) 10 mg [place] DAILY PRN Reason: CONSTIPATION Citalopram Hydrobromide (Celexa Tab*) 20 mg PO DAILY BETO Docusate Sodium (Colace Cap*) 100 mg PO BID PRN Reason: CONSTIPATION Heparin Sodium (Porcine) (Heparin Vial(*)) 5,000 units SUBCUT Q8HR BETO Ceftriaxone Sodium 1 gm/ (Sodium Chloride) 50 mls @ 200 mls/hr IVPB Q24H BETO Levothyroxine Sodium (Synthroid Tab*) 50 mcg PO 0600 BETO Magnesium Hydroxide (Milk Of Magnesia Liq*) 30 ml PO Q6H PRN Reason: CONSTIPATION Methadone HCl (Dolophine Tab*) 10 mg PO BID BETO Mometasone Furoate/Formoterol Fumar (Dulera 200/5 Mdi*) 2 puff INH BID BETO Omeprazole (Prilosec Cap*) 20 mg PO BID AC BETO Ondansetron HCl (Zofran Inj*) 4 mg IV Q6H PRN Reason: NAUSEA Oxybutynin Chloride (Ditropan Tab*) 5 mg PO QPM BETO Polyethylene Glycol/Electrolytes (Miralax*) 17 gm PO DAILY PRN Reason: CONSTIPATION Senna (Senokot Tab*) 1 tab PO DAILY BETO Sucralfate (Carafate*) 1 gm PO TID BETO Tiotropium [place] (Spiriva Cap.Inh*) 1 cap INH DAILY BETO Tramadol HCl (Ultram*) 50 mg PO Q6H PRN Reason: PAIN Vital Signs - 8 hr 09/19/17 09/19/17 09/19/17 06:15 08:00 08:24 Temperature 99.4 F Pulse Rate 76 81 Respiratory 16 16 16 Rate Blood Pressure 134/76 (mmHg) O2 Sat by Pulse 97 90 Oximetry 09/19/17 09/19/17 08:46 09:46 Temperature 98.5 F Pulse Rate 82 Respiratory 14 16 Rate Blood Pressure 129/72 (mmHg) O2 Sat by Pulse 90 Oximetry Oxygen Devices in Use Now: Nasal Cannula - 2L Appearance: NAD, sitting up on the side of the bed Ears/Nose/Mouth/Throat: Mucous Membranes Moist Respiratory: Symmetrical Chest Expansion and Respiratory Effort, - - Bilateral exp wheezing, improved from yesterday Cardiovascular: NL Sounds; No Murmurs; No JVD, RRR Abdominal: NL Sounds; No Tenderness; No Distention Extremities: No Edema Skin: No Rash or Ulcers Neurological: NL Muscle Strength and Tone, - - Alert and Oriented to Person and Place Lines/Tubes/Other Access: Clean, Dry and Intact Peripheral IV - site benign Nutrition: Taking PO's Result Diagrams: 09/19/17 05:31 09/17/17 10:42 Additional Lab and Data: . Microbiology and Other Data: . Assess/Plan/Problems-Billing Assessment: Mr. Cannon is a 72 yo male with PMH of current tobacco abuse, COPD O2 dependent , hypothyroidism who presented from home with increased confusion, congestion, and increased fatigue found to have sepsis secondary to influenza B with IRIS, now with strep pneumo per sputum culture. - Patient Problems (1) Pneumonia Code(s): J18.9 - PNEUMONIA, UNSPECIFIED ORGANISM SNOMED Code(s): 216509509 Comment: - Patient peristently SOB despite treatment for flu and COPD, but improving. - Afebrile and leukocytosis resolved - Sputum now shows step pneumniae and rothia mucilaginosa. - Change ABX to Cefdinir (2) Influenza B Code(s): J10.1 - FLU DUE TO OTH IDENT INFLUENZA VIRUS W OTH RESP MANIFEST SNOMED Code(s): 37767330 Comment: - Slow improvement, now with strep pneumo. - Completed course of tamilfu. (3) COPD exacerbation Code(s): J44.1 - CHRONIC OBSTRUCTIVE PULMONARY DISEASE W (ACUTE) EXACERBATION SNOMED Code(s): 740132707087028 Comment: - Wheezing on exam today, improved from yesterday. - O2 sat on 3L 96-98%. Uses O2 at 2L baseline at home, wears at bedtime. - Continue dulera, albuterol prn, and duoneb prn. Completed course of prednisone. (4) Constipation Code(s): K59.00 - CONSTIPATION, UNSPECIFIED SNOMED Code(s): 96266048 Comment: - Continue laxitives PRN (5) Epigastric pain Code(s): R10.13 - EPIGASTRIC PAIN SNOMED Code(s): 22602718 Comment: - Now appears to be chronic issue. - Plan to continue increased omeprazole and carafate (newly added). - GB US negative. Abd xray negative. LFTs and lipase normal. (6) Acute respiratory acidosis Code(s): E87.2 - ACIDOSIS SNOMED Code(s): 60604788 Comment: - Resolved. - Present on arrival, secondary to mild COPD exacerbation, sepsis, flu. (7) Sepsis Comment: - Resolved. - Present on arrival per qSOFA score. - Secondary to flu. (8) IRIS (acute kidney injury) Code(s): N17.9 - ACUTE KIDNEY FAILURE, UNSPECIFIED SNOMED Code(s): 08589898 Comment: - Resolved with IVFs (9) Depression Code(s): F32.9 - MAJOR DEPRESSIVE DISORDER, SINGLE EPISODE, UNSPECIFIED SNOMED Code(s): 29379120 Comment: - Continue home medication regimen (10) Chronic pain Code(s): G89.29 - OTHER CHRONIC PAIN SNOMED Code(s): 64591556 Comment: - Continue methadone and bowel regimen (11) BPH (benign prostatic hyperplasia) Code(s): N40.0 - BENIGN PROSTATIC HYPERPLASIA WITHOUT LOWER URINRY TRACT SYMP SNOMED Code(s): 570791714 Comment: - Continue flomax (12) GERD (gastroesophageal reflux disease) Code(s): K21.9 - GASTRO-ESOPHAGEAL REFLUX DISEASE WITHOUT ESOPHAGITIS SNOMED Code(s): 659058038 Comment: - Continue omeprazole and carafate (13) DVT prophylaxis Code(s): GBP6604 - SNOMED Code(s): 773127348 Comment: - SQ heparin (14) Full code status Code(s): Z78.9 - OTHER SPECIFIED HEALTH STATUS SNOMED Code(s): 112680810 Status and Disposition: Inpatient. Stable for discharge to home today.
[2017-09-19 12:00] VITALS: BP 141/80
--- NOTE | 2017-09-21 16:20 | DS ---
CC: Luis E Garcia MD* DISCHARGE SUMMARY: DATE OF ADMISSION: 09/12/17 DATE OF DISCHARGE: 09/19/17 ATTENDING PHYSICIAN: Laly Maravilla MD* (dictated by Jacquelin Haley NP) PRIMARY CARE PROVIDER: Luis E Garcia MD PRIMARY DIAGNOSES: 1. Influenza A, completed course of Tamiflu. 2. Systemic inflammatory response syndrome, resolved. 3. Acute kidney injury, resolved. 4. Mild chronic obstructive pulmonary disease exacerbation. 5. Mild jugular vein distention. 6. Streptococcus pneumoniae pneumonia. 7. Acute respiratory acidosis, resolved. 8. Acute on chronic hypoxic respiratory failure. SECONDARY DIAGNOSES: 1. Gastroesophageal reflux disease. 2. Benign prostatic hypertrophy. 3. Chronic pain. 4. Depression. 5. Constipation. 6. Chronic hypoxic respiratory failure. STUDIES WHILE IN THE HOSPITAL: 1. Chest x-ray on 09/12/17. Radiologist's impression: Hyperinflation. No active disease. 2. Brain CT on 09/12/17. Radiologist's impression: Mildly limited exam due to motion artifact. No acute intracranial findings. 3. Chest thoracic CTA on 09/13/17. Radiologist's impression: No definitive pulmonary embolus is noted. There may be some airspace disease in the left lower lobe possibly, which may represent pneumonitis. No definitive nodules are identified. 4. Abdominal x-ray on 09/16/17. Radiologist's impression: No abdominopelvic pathology process evident. 5. Gallbladder ultrasound on 09/16/17. Radiologist's impression: Limited study. No acute sonographic pathology of the visualized portion of the abdomen. DISCHARGE MEDICATIONS: New home medications: 1. Dulera 200/5 two puffs inhalation twice daily. 2. DuoNeb 2.5 mg/0.5 one neb inhalation every 4 hours as needed shortness of breath or wheezing. 3. Cefdinir 300 mg oral twice daily for 8 more days. 4. Milk of magnesia 30 mL oral every 6 hours as needed for constipation. 5. Senna one tablet oral daily. 6. Carafate 1 g oral 3 times daily. Continued Home Medications: 1. Methadone 10 mg oral twice daily. 2. Levothyroxine 50 mcg oral daily. 3. Albuterol sulfate one to two puffs inhalation every 4 hours as needed. 4. Ditropan 5 mg oral every evening. 5. Vitamin C 1000 mg oral daily. 6. Lexapro 10 mg oral daily. 7. Lorazepam 1 mg oral 3 times daily as needed for anxiety. 8. Omeprazole 20 mg oral daily. HISTORY OF PRESENT ILLNESS/HOSPITAL COURSE: Mr. Cannon is a 72-year-old male with past medical history significant for COPD, markedly hard of hearing, chronic pain, on methadone, hypothyroidism, anxiety, overactive bladder and GERD , who presented to the emergency room with complaints of two days of cough, congestion, increased fatigue, and confusion. It was reported by the patient's son whom he lives with that he was having sweats. Denied any fever or chills, changes in bowel or bladder, chest pain, increased shortness of breath or other issues. Patient's son reported a decrease in his father's appetite and noticed that his O2 sat had been in the 80s over the past two days, but his father had refused to come for evaluation until a friend stopped by and convinced him to come to emergency room. While in the emergency room, the patient had ABGs drawn and other labs. He had no leukocytosis but he was meeting SIRS criteria and he was Influenza B positive. He was started on Tamiflu. He had a chest x-ray with no acute findings and a CT exam with no acute findings. The patient was also noted to have an acute kidney injury and mild COPD exacerbation with mild JVD. Hospitalists were asked to evaluate the patient for admission. While in the hospital, the patient was treated for his mild JVD that was suspected to be secondary to emphysema. He had strict I's and O's, daily weights. For COPD exacerbation, he completed a prednisone taper. His acute kidney injury resolved. His SIRS and sepsis resolved. He completed a 5-day course of Tamiflu for his Influenza B. During his stay, he continued to have significant shortness of breath. He was diagnosed with pneumonia with sputum showing strep pneumoniae and Rothia mucilaginosa. He received IV ceftriaxone for this. He was able to be titrated down on his oxygen to his home oxygen level of 2 L. Although the patient states he wore this at bedtime, he was encouraged to wear this around the clock. The patient had complaints of constipation while here, but states that he does not move his bowels often and this is a chronic problem for him. He was encouraged to take laxative. He complained of epigastric pain that does not appear to be a new finding for him. He had gallbladder ultrasound and abdominal x-ray that were negative. He had normal LFTs and lipase. He was continued on omeprazole and started on Carafate. He initially had an acute respiratory acidosis and this resolved. The patient's sepsis was suspected to be secondary to influenza. His acute kidney injury resolved. He was able to ambulate and feeling well. Mr. Cannon is stable for discharge. Vital signs are as follows: Temperature 99.1, heart rate 82, respiratory rate 18, O2 sat 97% on 2 L via nasal cannula, blood pressure 141/80. DISCHARGE PLAN: Mr. Cannon will be discharged to home. ACTIVITY: As tolerated. DIET: He should be on a regular diet. In regards to his influenza, he has completed a course of treatment. For his pneumonia, he should take Cefdinir twice daily for 8 more days. He has been encouraged to use Dulera and DuoNebs or albuterol inhaler as needed for his COPD. Patient has chronic constipation. He has been encouraged to take senna daily in addition to his Colace and milk of magnesia if needed. I suspect his acid reflux is secondary to GERD. He has been started on Carafate and continued on his home omeprazole. This appears to be helping with his discomfort. Patient has a followup appointment with his primary care provider, Dr. Garcia on 09/26/17, at 2 p.m. He has been asked to return to the emergency room for any chest pain, shortness of breath. This is a summarized report of a complex medical history and hospital stay. For further details, please see the entire medical record. Time for this discharge was approximately 50 minutes, greater than half of that was spent with the patient and son discussing discharge plans and instructions. CONDITION ON DISCHARGE: Stable. Reviewed by UMANG RIVERA [id number]/[facility] #: [id number] CHRISTOPHER
== END 2017-09-19 12:40 | disposition home health service (06) | DRG 871 ==
LOC: ED 18:33 → MED 21:40
PROVIDERS: ADMIT Hospitalist; ATTEND Internal Medicine
DX: A41.89 Other specified sepsis (principal); J96.21 Acute and chronic respiratory failure with hypoxia; N17.9 Acute kidney failure, unspecified; J10.08 Influenza due to other identified influenza virus with other specified pneumonia; J13 Pneumonia due to Streptococcus pneumoniae; E87.2 Acidosis; J43.9 Emphysema, unspecified; F17.210 Nicotine dependence, cigarettes, uncomplicated; K21.9 Gastro-esophageal reflux disease without esophagitis; M19.90 Unspecified osteoarthritis, unspecified site; F32.9 Major depressive disorder, single episode, unspecified; H91.90 Unspecified hearing loss, unspecified ear; H26.9 Unspecified cataract; F41.9 Anxiety disorder, unspecified; E03.9 Hypothyroidism, unspecified; N32.81 Overactive bladder; G89.4 Chronic pain syndrome; R65.20 Severe sepsis without septic shock; R40.2362 Coma scale, best motor response, obeys commands, at arrival to emergency department; R40.2142 Coma scale, eyes open, spontaneous, at arrival to emergency department; R40.2252 Coma scale, best verbal response, oriented, at arrival to emergency department; N18.9 Chronic kidney disease, unspecified; E87.5 Hyperkalemia; N40.0 Benign prostatic hyperplasia without lower urinary tract symptoms; R10.13 Epigastric pain; B96.89 Other specified bacterial agents as the cause of diseases classified elsewhere; K59.09 Other constipation; Z99.81 Dependence on supplemental oxygen; Z98.42 Cataract extraction status, left eye; Z82.49 Family history of ischemic heart disease and other diseases of the circulatory system; Z72.89 Other problems related to lifestyle; Z97.4 Presence of external hearing-aid
CPT/HCPCS: 36415; 36600; 70450; 71045; 71275; 74019; 76705; 80048; 80053; 81003; 81015; 82565; 82803; 83605; 83690; 83880; 84145; 84443; 84484; 84520; 85025; 85027; 85379; 85610; 85730; 87040; 87070; 87077; 87205; 87502; 93005; 94640; 94760; 96365; 99284; 99406; A9270-GY; J0696; J1644; J2405; J2543; J2920; J2930; J7512; Q9967

== ENCOUNTER 2018-06-16 11:49 | Emergency (ER) | payer MEDICAID, MEDICARE ==
--- NOTE | 2018-06-16 12:16 | ED ---
Shortness of Breath - HPI Summary HPI Summary: This patient is a 72 year old M presenting to [facility] accompanied by his son with a chief complaint of increased SOB for the past 3 days. The patient rates the pain 8/10 in severity. Symptoms aggravated by exertion. Patient reports cough, dizziness, ARIAS, near syncope, chills, and chest congestion. Patient denies fever and edema. Pt called Dr Garcia but he was unable to get him in today, over the weekend the patient had a couple episodes where he gets up to go to the bathroom and experienced near syncope and SOB. He also reports a green productive cough and chest congestion. Pt is on 2L NC at home and he uses an at home neb TID. He has not used that today. - History of Current Complaint Chief Complaint: EDShortnessOfBreath Time Seen by Provider: 06/16/18 12:08 Hx Obtained From: Patient Onset/Duration: Still Present Timing: Constant Current Severity: Moderate Dyspnea At: Exertion Associated Signs & Symptoms: Cough (Productive), Chills, Dizzy - Allergy/Home Medications Allergies/Adverse Reactions: Allergies Allergy/AdvReac Type Severity Reaction Status Date / Time No Known Allergies Allergy Verified 06/16/18 11:51 Home Medications: Home Medications Levothyroxine TAB* [Synthroid TAB*] 75 mcg PO DAILY 06/16/18 [History Confirmed 06/16/18] Lisinopril TAB* [Prinivil TAB*] 20 mg PO DAILY 06/16/18 [History Confirmed 06/16] PMH/Surg Hx/FS Hx/Imm Hx Endocrine/Hematology History: Denies: Hx Diabetes, Hx Sickle Cell Disease Cardiovascular History: Denies: Other Cardiovascular Problems/Disorders Respiratory History: Reports: Hx Chronic Obstructive Pulmonary Disease (COPD), Other Respiratory Problems/Disorders - EMPHYSEMA GI History: Reports: Hx Gastroesophageal Reflux Disease - ON MEDICATION, Hx Gastrointestinal Bleed, Hx Ulcer History: Denies: Other Problems/Disorders Musculoskeletal History: Reports: Hx Arthritis, Hx Back Problems Comment Only: Other Musculoskeletal History - herniated disc Sensory History: Reports: Hx Contacts or Glasses, Hx Hearing Aid - Son will bring hearing aide tomorrow, Hx Hearing Problem - [place] Denies: Hx Cataracts Opthamlomology History: Reports: Hx Contacts or Glasses Denies: Hx Cataracts Psychiatric History: Reports: Hx Depression - ON MEDICATION - Surgical History Surgery Procedure, Year, and Place: LEFT EYE CATARACT - 7 YEARS AGO [facility] Hx Anesthesia Reactions: No - Immunization History Date of Tetanus Vaccine: unk Date of Influenza Vaccine: fall 2016 Infectious Disease History: No Infectious Disease History: Denies: Traveled Outside the [place] in Last 30 Days - Family History Known Family History: Positive: Cardiac Disease, Hypertension Negative: Diabetes - Social History Alcohol Use: Weekly Substance Use Type: Reports: None Hx Tobacco Use: Yes - Still occasionally smokes 1 cigarette Smoking Status (MU): Current Every Day Smoker Type: Cigarettes Have You Smoked in the Last Year: Yes Review of Systems Positive: Chills. Negative: Fever Positive: Shortness Of Breath, Cough, Other - chest congestion Negative: Edema Neurological: Other - dizziness Positive: Headache, Syncope - near All Other Systems Reviewed And Are Negative: Yes Physical Exam - Summary Physical Exam Summary: Appearance: The patient is well-nourished in no acute distress and in no acute pain. Skin: The skin is warm and dry and skin color reflects adequate perfusion. HEENT: The head is normocephalic and atraumatic. The pupils are equal and reactive. The conjunctivae are clear and without drainage. Nares are patent and without drainage. Mouth reveals moist mucous membranes and the throat is without erythema and exudate. The external ears are intact. The ear canals are patent and without drainage. The tympanic membranes are intact. Neck: The neck is supple with full range of motion and non-tender. There are no carotid bruits. There is no neck vein distension. Respiratory: Chest is non-tender. Increased E/I ratio. Diffuse expiratory wheezes. Cardiovascular: Heart is regular rate and rhythm. There is no murmur or rub auscultated. There is no peripheral edema and pulses are symmetrical and equal. Abdomen: The abdomen is soft and non-tender. There are normal bowel sounds heard in all four quadrants and there is no organomegaly palpated. Musculoskeletal: There is no back tenderness noted. Extremities are non-tender with full range of motion. There is good capillary refill. There is no peripheral edema or calf tenderness elicited. Neurological: Patient is alert and oriented to person, place and time. The patient has symmetrical motor strength in all four extremities. Cranial nerves are grossly intact. Deep tendon reflexes are symmetrical and equal in all four extremities. Psychiatric: The patient has an appropriate affect and does not exhibit any anxiety or depression. Triage Information Reviewed: Yes Vital Signs On Initial Exam: Initial Vitals Temp Pulse Resp BP Pulse Ox 98.9 F 85 16 142/70 93 06/16/18 11:50 06/16/18 11:50 06/16/18 11:50 06/16/18 11:50 06/16/18 11:50 Vital Signs Reviewed: Yes Diagnostics - Vital Signs Vital Signs Temp Pulse Resp BP Pulse Ox 06/16/18 11:50 98.9 F 85 16 142/70 93 - Laboratory Result Diagrams: 06/16/18 12:37 06/16/18 12:37 Lab Statement: Any lab studies that have been ordered have been reviewed, and results considered in the medical decision making process. - Radiology CXR Radiology Interpretation Completed By: Radiologist Summary of Radiographic Findings: HYPERINFLATION, CONSISTENT WITH COPD. NO ACTIVE CARDIOPULMONARY DISEASE. ED physician has reviewed this radiology report. - EKG 1230 Cardiac Rate: NL EKG Rhythm: Sinus Rhythm - at 81 BPM EKG Comparison: No Significant Change - compared to 09-13-17 Summary of EKG Findings: left anterior fascicular block Course/Dx - Course Course Of Treatment: Mr. Cannon presented to the emergency department complaining that he's had increasing shortness of breath over the last several days. His chest feels full and he is coughing green stuff up like he did last August when he had pneumonia. He clearly had COPD exacerbation on arrival but was not toxic in appearance. Chest x-ray showed no obvious infiltrate and his blood showed no leukocytosis. He improved with a DuoNeb here in the department and I will treat him with a steroid burst and Biaxin. - Diagnoses Provider Diagnoses: Bronchitis Discharge - Sign-Out/Discharge Documenting (check all that apply): Patient Departure - Discharge Plan Condition: Stable Disposition: HOME Prescriptions: Clarithromycin TAB* [Biaxin TAB*] 500 mg PO BID #20 tab methylPREDNISolone [Medrol Dosepak 4 MG*] 4 mg PO .SEE ROBERTO INSTRUCTION #1 tab Patient Education Materials: Acute Bronchitis (ED) Referrals: Luis E Garcia MD [Primary Care Provider] - 3 Days Additional Instructions: RETURN TO THE EMERGENCY DEPARTMENT FOR CHANGING OR WORSENING SYMPTOMS - Billing Disposition and Condition Condition: STABLE Disposition: Home - Attestation Statements Document Initiated by Scribe: Yes Documenting Scribe: Parker Bingham Provider For Whom Scribe is Documenting (Include Credential): Skyler Odom MD Scribe Attestation: I, Parker Bingham , scribed for Skyler Odom MD on 06/16/18 at 1514. Scribe Documentation Reviewed: Yes Provider Attestation: The documentation as recorded by the [email or web address] accurately reflects the service I personally performed and the decisions made by me, Skyler Odom MD
[2018-06-16] MEDS ORDERED: Albuterol/Ipratropium NEB.SOL* Albuterol 2.5 MG/Ipratropium 0.5 MG 3 ML INH ONE (12:22)
[2018-06-16 12:48] LABS: ABS Basophils 0 10^3/ul (0-0.2); ABS Eosinophils 0.3 10^3/ul (0-0.6); ABS Lymphocytes 2.1 10^3/ul (1.0-4.8); ABS Monocytes 0.5 10^3/ul (0-0.8); ABS Neutrophils 3.8 10^3/ul (1.5-7.7); ABS Nucleated RBC 0 10^3/ul; Eosinophil % 5.1 % (0-6); Hematocrit 35 % (42-52); Hemoglobin 11.4 g/dl (14.0-18.0); Lymphocyte % 31.2 % (25-47); Mean Corpuscular HGB Conc 33 g/dl (31-36); Mean Corpuscular Hemoglobin 29 pg (27-31); Mean Corpuscular Volume 89 fL (80-94); Mean Platelet Volume 6.5 fL (7.4-10.4); Nucleated Red Blood Cells % 0; Platelet Count 255 10^3/ul (150-450); Red Blood Count 3.91 10^6/ul (4.00-5.40); Red Cell Distribution Width 14 % (10.5-15); White Blood Count 6.8 10^3/ul (3.5-10.8)
[2018-06-16 12:54] LABS: INR 0.94 (0.77-1.02)
[2018-06-16 13:06] LABS: EGFR Non-African American 74.7 (>60)
[2018-06-16 13:57] VITALS: BP 110/63
== END 2018-06-16 14:09 | disposition home or self-care (01) ==
LOC: ED 11:49
DX: J40 Bronchitis, not specified as acute or chronic (principal); J44.9 Chronic obstructive pulmonary disease, unspecified; K21.9 Gastro-esophageal reflux disease without esophagitis; F17.210 Nicotine dependence, cigarettes, uncomplicated; F32.9 Major depressive disorder, single episode, unspecified
CPT/HCPCS: 36415; 71046; 80053; 83605; 83880; 84484; 85025; 85610; 86140; 87040; 93005; 99283; A9270-GY

== ENCOUNTER 2019-04-13 20:43 | Observation (INO) | payer MEDICARE ==
[2019-04-13 21:08] LABS: ABS Basophils 0.1 10^3/ul (0-0.2); ABS Eosinophils 0.1 10^3/ul (0-0.6); ABS Monocytes 0.3 10^3/ul (0-0.8); ABS Neutrophils 10.9 10^3/ul (1.5-7.7); Eosinophil % 0.7 %; Hematocrit 35 % (42-52); Hemoglobin 11.5 g/dL (14.0-18.0); Lymphocyte % 7.9 %; Mean Corpuscular HGB Conc 33 g/dL (31-36); Mean Corpuscular Hemoglobin 29 pg (27-31); Mean Corpuscular Volume 89 fL (80-94); Mean Platelet Volume 7.5 fL (7.4-10.4); Nucleated Red Blood Cells % 0.1; Platelet Count 229 10^3/uL (150-450); Red Blood Count 3.96 10^6 /uL (4.18-5.48); Red Cell Distribution Width 15 % (10-15); White Blood Count 12.4 10^3/uL (3.5-10.8)
[2019-04-13] MEDS ORDERED: NS 0.9% 1000 ML** 3,000 ML IV ONE (21:13)
[2019-04-13 21:14] LABS: INR 1.08 (0.82-1.09)
[2019-04-13] MEDS ORDERED: Azithromycin 500 mg/250 ml NS 500 MG/250 ML BAG IVPB ONE (21:14)
[2019-04-13] MEDS ORDERED: cefTRIAXone(*) 1 GM in NS 0.9% 50 ML* 50 ML IVPB ONE (21:14)
[2019-04-13] MEDS ORDERED: methylPREDNISolone 125 MG* 2 ML VIAL IV ONE (21:14)
[2019-04-13] MEDS ORDERED: Albuterol 0.5% CONC NEB.SOL* 5 MG/ML 20 ml BOT INH ONE (21:14)
--- NOTE | 2019-04-13 21:17 | ED ---
Shortness of Breath - HPI Summary HPI Summary: The patient is a 73 y/o M presenting to [facility] accompanied by son with a chief complaint of SOB since 1900 tonight. The SOB is associated with CP and dizziness , especially with exertion. He has a noted fever (104.4F, per triage). He also states that he has had fluctuations in elevated and depressed HR, which he follows on his at home monitor. He also uses O2 at home for emphysema control. Currently, his symptoms are rated 0/10 in severity. Rest alleviates his symptoms. He was recently at his PCP's office, where he was told that he may need a cardiac follow up for changes in heart rate. PMHx: COPD, depression. No cardiac hx. FHx: cardiac disease, HTN. Current every day cigarette smoker, weekly EtOH, no substance use. Medications reviewed. Allergies noted. - History of Current Complaint Chief Complaint: EDShortnessOfBreath Time Seen by Provider: 04/13/19 21:07 Hx Obtained From: Patient Onset/Duration: Gradual Onset, Lasting Hours, Still Present Current Severity: Moderate Dyspnea At: Rest Aggravating Factors: Other - exertion Alleviating Factors: Other - rest Associated Signs & Symptoms: Chest Pain Unrelated to Cough, Fever, Dizzy - Allergy/Home Medications Allergies/Adverse Reactions: Allergies Allergy/AdvReac Type Severity Reaction Status Date / Time No Known Allergies Allergy Verified 04/13/19 21:01 Home Medications: Home Medications Fluticasone/Umeclidin/Vilanter [Trelegy Ellipta 100-62.5-25] 1 puff INH DAILY [History Confirmed 04/13/19] Aspirin 81 mg CHEW TAB* 81 mg PO DAILY 04/14/19 [History Confirmed 04/14/19] Dextran 70/Hypromellose/Pf [Artificial Tears Drops] 1 each OP DAILY 04/14/19 [ History Confirmed 04/14/19] Multivit-Min/FA/Lycopen/Lutein [Centrum Silver Men Tablet] 1 each PO DAILY 04/14 [History Confirmed 04/14/19] Sennosides/Docusate Sodium [Senna-S Tablet] 1 each PO BID 04/14/19 [History Confirmed 04/14/19] PMH/Surg Hx/FS Hx/Imm Hx Endocrine/Hematology History: Denies: Hx Diabetes, Hx Sickle Cell Disease Cardiovascular History: Denies: Other Cardiovascular Problems/Disorders Respiratory History: Reports: Hx Chronic Obstructive Pulmonary Disease (COPD), Other Respiratory Problems/Disorders - emphysema GI History: Reports: Hx Gastroesophageal Reflux Disease - ON MEDICATION, Hx Gastrointestinal Bleed, Hx Ulcer History: Denies: Other Problems/Disorders Musculoskeletal History: Reports: Hx Arthritis, Hx Back Problems Comment Only: Other Musculoskeletal History - herniated disc Sensory History: Reports: Hx Contacts or Glasses, Hx Hearing Aid - Son will bring hearing aide tomorrow, Hx Hearing Problem - [place] Denies: Hx Cataracts Opthamlomology History: Reports: Hx Contacts or Glasses Denies: Hx Cataracts Psychiatric History: Reports: Hx Depression - ON MEDICATION - Surgical History Surgical History: Yes Surgery Procedure, Year, and Place: LEFT EYE CATARACT - 7 YEARS AGO [facility] Hx Anesthesia Reactions: No - Immunization History Date of Tetanus Vaccine: unk Date of Influenza Vaccine: fall 2016 Infectious Disease History: No Infectious Disease History: Denies: Traveled Outside the [place] in Last 30 Days - Family History Known Family History: Positive: Cardiac Disease, Hypertension Negative: Diabetes - Social History Alcohol Use: Weekly Hx Substance Use: No Substance Use Type: Reports: None Hx Tobacco Use: Yes - Still occasionally smokes 1 cigarette Smoking Status (MU): Current Every Day Smoker Type: Cigarettes Have You Smoked in the Last Year: Yes Review of Systems Positive: Fever Positive: Chest Pain Positive: Shortness Of Breath Neurological: Other - dizziness All Other Systems Reviewed And Are Negative: Yes Physical Exam - Summary Physical Exam Summary: Appearance: Elderly male in wheelchair upon entry to the room, appears dyspneic and febrile, Well-nourished, awake and able to answer questions Eyes: sclera anicteric, no conjunctival pallor ENT: mucous membranes moist, pharynx appears normal Neck: Supple, nontender Respiratory: Diffusely diminished aeration with expiratory wheezes, no signs of focal consolidation, mild to moderate respiratory distress with belly breathing Cardiovascular: Normal S1, S2. No murmurs. Normal distal pulses in tibial and radial bilaterally. Abdomen: Soft, nontender, normal active bowel sounds present Musculoskeletal: Normal, Strength/ROM Intact Neurological: A&Ox3, awake and alert, mentation is normal, speech is fluent and appropriate Psychiatric: affect is normal, does not appear anxious or depressed Triage Information Reviewed: Yes Vital Signs On Initial Exam: Initial Vitals Temp Pulse Resp BP Pulse Ox 104.4 F 112 30 125/79 92 04/13/19 20:59 04/13/19 20:59 04/13/19 20:59 04/13/19 20:59 04/13/19 20:59 Vital Signs Reviewed: Yes Diagnostics - Vital Signs Vital Signs Temp Pulse Resp BP Pulse Ox 04/13/19 20:59 104.4 F 112 30 125/79 92 - Laboratory Lab Results: Lab Results 04/13/19 Range/Units 20:58 WBC 12.4 H (3.5-10.8) 10^3/uL RBC 3.96 L (4.18-5.48) 10^6 /uL Hgb 11.5 L (14.0-18.0) g/dL Hct 35 L (42-52) % MCV 89 (80-94) fL MCH 29 (27-31) pg MCHC 33 (31-36) g/dL RDW 15 (10-15) % Plt Count 229 (150-450) 10^3/uL MPV 7.5 (7.4-10.4) fL Neut % (Auto) 88.4 % Lymph % (Auto) 7.9 % Thayer % (Auto) 2.5 % Eos % (Auto) 0.7 % Baso % (Auto) 0.5 % Absolute Neuts (auto) 10.9 H (1.5-7.7) 10^3/ul Absolute Lymphs (auto) 1.0 (1.0-4.8) 10^3/ul Absolute Monos (auto) 0.3 (0-0.8) 10^3/ul Absolute Eos (auto) 0.1 (0-0.6) 10^3/ul Absolute Basos (auto) 0.1 (0-0.2) 10^3/ul Absolute Nucleated RBC 0.0 10^3/ul Nucleated RBC % 0.1 Result Diagrams: 04/13/19 20:58 04/14/19 08:45 Lab Statement: Any lab studies that have been ordered have been reviewed, and results considered in the medical decision making process. - Radiology CXR Radiology Interpretation Completed By: ED Physician Summary of Radiographic Findings: No acute process. ED physician has interpreted this report. Pending official report. - EKG 2117 Cardiac Rate: Tachycardia - 108 BPM EKG Rhythm: Sinus Tachycardia Summary of EKG Findings: Sinus tachycardia at 108 BPM, Ventricular premature complex, RBBB and LAFB. No STEMI. ED physician has reviewed and interpreted this EKG. Re-Evaluation - Re-Evaluation First Eval Re-Evaluation Time: 22:25 Change: Worse Comment: Pt is anxious. We will order Ativan since he takes it at home. Second Eval Re-Evaluation Time: 22:35 Change: Unchanged Comment: Pt and son aware of and agree with plan for admission. Course/Dx - Course Course Of Treatment: Pt is a 73 y/o M hx of COPD and O2 use at home with cc of SOB accompanied by dizziness, fever, and CP worsening at 1900 tonight. Upon physical exam, the pt appears to be a dyspneic elderly male in wheelchair during my entry to the room who is notably febrile, but he is awake, alert, and able to answer questions, although he exhibits diffusely diminished aeration with expiratory wheezes without signs of focal consolidation while being in mild to moderate distress with observable belly breathing. Blood work reveals WBCs of 12.4, RBCs of 3.96, hgb of 11.5, hct of 35, abs neuts of 10.9, BUN of 25 , creatinine of 1.34, glucose of 125, and alkaline phosphatase of 120, but is otherwise unremarkable. Troponin and lactic acid are negative. UA obtained and is unremarkable. In the ED course, the pt is administered fluids, Solu-Medrol, Zithromax, Albuterol, and Ceftriaxone. EKG at 2117 reveals sinus tachycardia at 108 BPM with ventricular premature complex, RBBB, and LAFB. Chest x-ray, per my interpretation, is negative. Pt states he is anxious, so we will order Ativan, which he takes at home. Dr. Moreira accepts the pt for admission. Pt and his son understand and agree with this plan. Dx of fever, COPD exacerbation. - Diagnoses Provider Diagnoses: Fever, COPD exacerbation - Physician Notifications Discussed Care of Patient With: Gladys Moreira - hospitalist Time Discussed With Above Provider: 22:30 Instructed by Provider To: Admit As Observation - I discussed the pt's case with Dr. Moreira, hospitalist, who accepts the pt for admission. Discharge ED - Sign-Out/Discharge Documenting (check all that apply): Patient Departure - Patient is accepted for admission by Dr. Moreira. Patient Received Moderate/Deep Sedation with Procedure: No - Discharge Plan Condition: Fair Disposition: ADMITTED TO [facility] - Billing Disposition and Condition Condition: FAIR Disposition: Admitted to [facility] - Attestation Statements Document Initiated by Wanda: Yes Documenting Scribe: Cindy Hill Provider For Whom Wanda is Documenting (Include Credential): Dr. Eric Castanon MD Scribe Attestation: ICindy scribed for Dr. Eric Castanon MD on 04/17/19 at 1850. Scribe Documentation Reviewed: Yes Provider Attestation: The documentation as recorded by the Cindy muniz accurately reflects the service I personally performed and the decisions made by me, Dr. Eric Castanon MD Status of Scribtiffany Document: Viewed
[2019-04-13 21:23] LABS: Albumin 4.5 g/dL (3.2-5.2); Albumin/Globulin Ratio 1.4 (1-3); BUN/Creatinine Ratio 18.7 (8-20); Calcium 9.4 mg/dL (8.6-10.3); EGFR African American 63.6 (>60); EGFR Non-African American 52.5 (>60); Globulin 3.2 g/dL (2-4); Potassium 4.5 mmol/L (3.5-5.0); Total Bilirubin 0.5 mg/dL (0.2-1.0); Total Protein 7.7 g/dL (6.4-8.9)
[2019-04-13 21:24] LABS: Troponin I 0.02 ng/mL (<0.04)
[2019-04-13 22:08] LABS: Activated Partial Thrombo Time 30.7 seconds (26.0-38.0)
[2019-04-13] MEDS ORDERED: LORazepam TAB(*) 1 MG PO ONE (22:24)
[2019-04-13 22:27] LABS: Urine Appearance Cloudy; Urine Bilirubin Negative (Negative); Urine Blood Negative (Negative); Urine Color Yellow; Urine Glucose Negative (Negative); Urine Ketones Negative (Negative); Urine Nitrite Negative (Negative); Urine Protein Negative (Negative); Urine Specific Gravity 1.016 (1.010-1.030); Urine Urobilinogen Negative (Negative)
[2019-04-13] MEDS ORDERED: oxyCODONE TAB* 5 MG TAB PO ONE (23:18)
[2019-04-14] MEDS ORDERED: Albuterol 2.5 MG/3 ML NEB.SOL* (0.083%) INH PRN (02:37)
[2019-04-14] MEDS ORDERED: Docusate CAP* 100 MG PO PRN (02:41)
[2019-04-14] MEDS ORDERED: LORazepam TAB(*) 1 MG PO PRN (02:41)
[2019-04-14] MEDS ORDERED: Albuterol/Ipratropium NEB.SOL* Albuterol 2.5 MG/Ipratropium 0.5 MG 3 ML INH PRN (02:41)
[2019-04-14] MEDS ORDERED: cefTRIAXone(*) 1 GM in NS 0.9% 50 ML* 50 ML IVPB SCH ×2 (03:00→21:00)
--- NOTE | 2019-04-14 05:11 | HP ---
CC: Dr. Garcia * HISTORY AND PHYSICAL: DATE OF ADMISSION: 04/14/19 PRIMARY CARE PROVIDER: Dr. Garcia. CHIEF COMPLAINT: Shortness of breath. HISTORY OF PRESENT ILLNESS: Mr. Cannon is a 73-year-old male who has a history of O2 dependent COPD, chronic pain, hypothyroidism, and anxiety, who presented to the emergency room with complaints of shortness of breath. The patient states that he was working around his house all day of 04/13/19. He became very short of breath. Because of how short of breath he was, he presented to the emergency room for evaluation. The patient states that his breathing is now much improved. He is not exactly sure why he needs to be admitted. He does note that there has been increased wheezing. He states that he may have had a fever. He denies any sputum production or sick contacts, however. He denies any cough. In general, the patient is a very poor historian secondary to him being severely hard of hearing. PAST MEDICAL HISTORY: 1. COPD with chronic hypoxic respiratory failure, requiring 2 L of O2 continuously. 2. Chronic pain. 3. Hypothyroidism. 4. Anxiety. 5. Overactive bladder. 6. GERD. PAST SURGICAL HISTORY: 1. Appendectomy. 2. Tonsillectomy. 3. Cataract extraction. MEDICATIONS: 1. Vitamin C 1000 mg p.o. daily. 2. Synthroid 88 mcg p.o. daily. 3. Trelegy Ellipta 100/62.5/25 one puff inhale daily. 4. Lexapro 10 mg p.o. daily. 5. Colace 100 mg p.o. b.i.d. p.r.n. constipation. 6. DuoNeb 1 neb inhale q.4 hours p.r.n. shortness of breath. 7. Albuterol 2 puffs inhale q.6 hours p.r.n. shortness of breath. 8. Oxybutynin 5 mg p.o. q.h.s. 9. Omeprazole 20 mg p.o. daily. 10. Methadone 10 mg p.o. b.i.d. 11. Milk of magnesia 30 mL p.o. q.6 hours p.r.n. constipation. 12. Lisinopril 20 mg p.o. daily. 13. Ativan 1 mg p.o. q.6 hours p.r.n. anxiety. ALLERGIES: No known drug allergies. FAMILY HISTORY: Mom in her 60s secondary to coronary artery disease. Dad in his 70s secondary to coronary artery disease. SOCIAL HISTORY: The patient quit smoking approximately 1 year ago. He drinks alcohol on occasion. 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 He is . He lives with his son. Son Favian would be his healthcare proxy. REVIEW OF SYSTEMS: A complete 11-system review of systems was obtained. Pertinent positives and negatives are as per HPI and otherwise negative. PHYSICAL EXAMINATION GENERAL: The patient is a well-developed elderly male, seen lying in the bed in no acute distress. VITAL SIGNS: Blood pressure 126/69, pulse 98, respirations 17, temp 104.4. HEENT: Pupils are equal and round . Extraocular muscles are intact. Oropharynx is clear. Oral mucosa is moist. There is no submandibular, cervical , or supraclavicular adenopathy. PULMONARY: Breath sounds are markedly diminished throughout. I do not appreciate any crackles. CARDIAC: Normal S1, S2. Regular rate and rhythm. I do not appreciate any murmurs. There is no lower extremity edema. ABDOMEN: Bowel sounds are present. Abdomen is soft, nontender, nondistended. MUSCULOSKELETAL: There is no cyanosis or clubbing of the digits. There is full active range of motion of all 4 extremities. NEUROLOGIC: Cranial nerves II through XII are grossly intact. Sensation is intact to light touch throughout. Strength is 5/5 and symmetric in both upper and lower extremities bilaterally. PSYCH: The patient is alert. He is oriented x3. Affect appears appropriate. SKIN: Warm and dry. There are no rashes. DIAGNOSTIC STUDIES/LAB DATA: WBC 12.4, hemoglobin 11.5, hematocrit 35, platelets 229. INR 1.08. Sodium 140, potassium 4.5, chloride 101, CO2 31, BUN 25, creatinine 1.34, glucose 125, lactic acid 1.6, calcium 9.4. Bilirubin 0.5, AST 28, ALT 34, alk phos 120. Troponin 0.02. Albumin 4.5. Urinalysis is clear. EKG reveals sinus tachycardia with a right bundle branch block. Chest x-ray to my interpretation, question small left lower lobe infiltrate. ASSESSMENT AND PLAN: Mr. Cannon is a 73-year-old male with a history of O2 dependent chronic obstructive pulmonary disease, chronic pain, and hypothyroidism, who presented to the emergency room with complaint of shortness of breath. 1. Chronic obstructive pulmonary disease exacerbation. At this point, the patient will be admitted under observation status for treatment of a mild chronic obstructive pulmonary disease exacerbation. At this point, the patient looks quite well. He is not short of breath at all. He is on his baseline 2 L of oxygen. He has diminished breath sounds throughout. However, I suspect that is likely chronic. My biggest concern at this point is the fact that the patient had a temperature of 104.4. He denies any significant cough or sputum production. There is questionable infiltrate at the left base. However, comparing this x-ray to the one prior, this may have been present before. He received ceftriaxone and azithromycin in the emergency room. He will subsequently continue on ceftriaxone and doxycycline due to QT prolongation with azithromycin and methadone. I will also send a rapid influenza. The patient will also have p.r.n. nebs and prednisone 40 mg p.o. daily. 2. Chronic pain. The patient will continue on his usual dose of methadone. 3. Hypertension. BP is under good control. Continue lisinopril. 4. Hypothyroidism. Continue Synthroid 88 mcg p.o. daily. 5. Overactive bladder. Continue oxybutynin. 6. Gastroesophageal reflux disease. Continue omeprazole. 7. Anxiety. Continue p.r.n. Ativan. 8. DVT prophylaxis. According to the Adult Thrombosis Prophylaxis Risk Factor Assessment Guide, the patient has a total risk factor score of 3, making him high risk. He will be placed on heparin 5000 units subcutaneous q.8 hours. 9. Code status is full. TIME SPENT: Sixty-five minutes was spent admitting this patient. [id number]/CPS #: [id number] CHRISTOPHER
[2019-04-14 05:17] LABS: Influenza A Molecular NEGATIVE (Negative); Influenza B Molecular NEGATIVE (Negative)
[2019-04-14] MEDS: Heparin VIAL(*) 5000 UNITS/ML VIAL (FIVE THOUSAND) SUBCUT SCH ×3 (06:05→20:32)
[2019-04-14] MEDS: Levothyroxine TAB* 88 MCG TAB PO SCH (06:05)
--- NOTE | 2019-04-14 07:39 | PN ---
Hospitalist Progress Note Date of Service: 04/14/19 HOSPITALIST ADDENDUM Case reviewed and d/w Mr Cannon is a 73yo M with PMH of COPD, chronic hypoxemic respiratory failure on 2 liters of O2, chronic pain, hypothyroidism, anxiety, OAB, GERD, who presented to ED with c/o dyspnea, found to have COPD exacerbation secondary to bronchitis. He feels a little better this AM, but still dyspneic, especially with exertion. Selected Entries 04/14/19 04/14/19 07:15 11:15 Temperature 97.6 F Pulse Rate 65 Respiratory 20 Rate Blood Pressure 116/43 (mmHg) O2 Sat by Pulse 97 Oximetry Patient on Room No: 2L Air Gen: Pleasant elderly gentleman sitting up in bed in NAD CVS: normal S1 and S2, RRR Chest: BS+ bilaterally with scattered rhonchi A/P: - Continue current management with bronchodilators, steroids, Ceftriaxone, and Doxycycline. - Anticipate d/c in AM if he continues to respond well.
[2019-04-14] MEDS: VILANTEROL INH SCH (07:45)
[2019-04-14] MEDS: UMECLIDINIUM INH SCH (07:45)
[2019-04-14] MEDS: FLUTICASONE INH SCH (07:45)
[2019-04-14 09:39] LABS: BUN/Creatinine Ratio 22.7 (8-20); Calcium 8.8 mg/dL (8.6-10.3); EGFR African American 92.3 (>60); EGFR Non-African American 76.3 (>60); Potassium 4.2 mmol/L (3.5-5.0)
[2019-04-14] MEDS: Pantoprazole TAB * 40 MG TAB PO SCH (10:16)
[2019-04-14] MEDS: DOXYcycline CAP(*) 100 MG PO SCH ×2 (10:16→20:30)
[2019-04-14] MEDS: predniSONE TAB* 20 MG PO SCH (10:16)
[2019-04-14] MEDS: Escitalopram * 10 MG TAB PO SCH (10:16)
[2019-04-14] MEDS: Methadone TAB* 10 MG PO SCH ×2 (10:16→20:30)
[2019-04-14] MEDS: Lisinopril TAB* 10 MG PO SCH (10:16)
[2019-04-14] MEDS: Magnesium Hydroxide LIQ* 30 ML UDC PO PRN (10:34)
[2019-04-14] MEDS ORDERED: Acetaminophen TAB* 325 MG PO PRN (12:57)
[2019-04-14] MEDS: Aspirin 81 mg CHEW TAB* 81 MG TAB.CHEW PO SCH (13:34)
[2019-04-14] MEDS ORDERED: Azithromycin TAB* 250 MG PO SCH (18:00)
[2019-04-14] MEDS ORDERED: Oxybutynin TAB* 5 MG PO SCH (18:00)
[2019-04-14] MEDS: Docusate LIQ* 100 MG/10 ML UDC PO SCH (20:30)
[2019-04-14] MEDS: Senna TAB 8.6 mg* TAB PO SCH (20:32)
[2019-04-15] MEDS: Levothyroxine TAB* 88 MCG TAB PO SCH (04:56)
[2019-04-15] MEDS: Heparin VIAL(*) 5000 UNITS/ML VIAL (FIVE THOUSAND) SUBCUT SCH (04:56)
[2019-04-15] MEDS: UMECLIDINIUM INH SCH (07:33)
[2019-04-15] MEDS: VILANTEROL INH SCH (07:33)
[2019-04-15] MEDS: FLUTICASONE INH SCH (07:33)
[2019-04-15 08:12] VITALS: BP 122/62
[2019-04-15] MEDS ORDERED: Multivitamins/Minerals TAB PO SCH (09:00)
[2019-04-15] MEDS ORDERED: Dextran 70/Hypromellose Tears Eye Drops 15 ml BTL (for Artificials Tears) BOTH EYES SCH (09:00)
[2019-04-15] MEDS: Methadone TAB* 10 MG PO SCH (10:02)
[2019-04-15] MEDS: Senna TAB 8.6 mg* TAB PO SCH (10:03)
[2019-04-15] MEDS: Pantoprazole TAB * 40 MG TAB PO SCH (10:04)
[2019-04-15] MEDS: predniSONE TAB* 20 MG PO SCH (10:04)
[2019-04-15] MEDS: Lisinopril TAB* 10 MG PO SCH (10:04)
[2019-04-15] MEDS: Escitalopram * 10 MG TAB PO SCH (10:05)
[2019-04-15] MEDS: DOXYcycline CAP(*) 100 MG PO SCH (10:06)
[2019-04-15] MEDS: Aspirin 81 mg CHEW TAB* 81 MG TAB.CHEW PO SCH (10:06)
[2019-04-15] MEDS: Docusate LIQ* 100 MG/10 ML UDC PO SCH (10:07)
[2019-04-15] MEDS: Magnesium Hydroxide LIQ* 30 ML UDC PO PRN (10:08)
--- NOTE | 2019-04-15 23:14 | DS ---
CC: Dr. Garcia * DISCHARGE SUMMARY: DATE OF ADMISSION: 04/14/19 DATE OF DISCHARGE: 04/15/19 PRIMARY CARE PROVIDER: Dr. Garcia. DISCHARGE DIAGNOSIS: Chronic obstructive pulmonary disease exacerbation secondary to bronchitis. SECONDARY DIAGNOSES: 1. Chronic obstructive pulmonary disease with chronic hypoxemic respiratory failure, 2 L of oxygen continuously. 2. Chronic pain. 3. Hypothyroidism. 4. Anxiety. 5. Overactive bladder. 6. Gastroesophageal reflux disease. MEDICATION LIST: 1. Artificial tears 1 drop to each eye daily. 2. Multivitamin 1 tablet p.o. daily. 3. Senna/docusate 1 tablet p.o. b.i.d. 4. Aspirin 81 mg p.o. daily. 5. Vitamin C 1000 mg p.o. daily. 6. Levothyroxine 88 mcg p.o. daily. 7. Trelegy Ellipta 1 puff inhaled daily. 8. Escitalopram 10 mg p.o. daily. 9. Albuterol 2 puffs inhaled q.6 hours p.r.n. shortness of breath. 10. Oxybutynin 5 mg p.o. at bedtime. 11. Omeprazole 20 mg p.o. daily. 12. Methadone 10 mg p.o. b.i.d. 13. Lisinopril 20 mg p.o. daily. 14. Lorazepam 1 mg p.o. q.6 hours p.r.n. anxiety. 15. Colace 100 mg p.o. b.i.d. as needed for constipation. 16. Albuterol/ipratropium nebulized q.4 hours p.r.n. shortness of breath. New medications: 1. Prednisone taper as follows: 40 mg p.o. daily for 3 days, 30 mg for 3 days , 20 mg for 3 days, 10 mg for 3 days, and stop. 2. Cefuroxime 250 mg p.o. b.i.d. for 5 more days. 3. Doxycycline 100 mg p.o. b.i.d. for 5 more days. 4. MiraLAX 17 g p.o. b.i.d. hold for loose stools. HOSPITAL COURSE: Mr. Cannon is a 73-year-old male with a past medical history as stated above that presented to the emergency room with complaints of fever, cough, and shortness of breath. For more details about his presentation, I refer you to his history and physical. In the emergency room, he had a chest x-ray that show no active cardiopulmonary disease and he was admitted to the medical floor on the impression of COPD exacerbation secondary to bronchitis. He was started on antibiotics, bronchodilators and steroids with improvement of his symptoms and today, he felt that his breathing had improved enough to be discharged home. He was deemed medically stable to be discharged home today. PHYSICAL EXAMINATION: Vital Signs: Temperature 97.6, heart rate 84, respiratory rate 16, oxygen saturation 100% on 2 L of nasal cannula, blood pressure is 122/62. General: The patient is a pleasant elderly gentleman, hard of hearing, sitting up in bed, in no acute distress. CVS: Normal S1, S2. Regular rate and rhythm. Chest: Breath sounds bilaterally diminished with no added sounds. Extremities: No edema. Neuro: Alert and oriented x3. Able to move all 4 extremities. DIET: Regular diet. ACTIVITIES: As tolerated. DISPOSITION: To home. STATUS WHILE IN THE HOSPITAL: Observation. CONDITION AT THE TIME OF DISCHARGE: Fair. Please keep in mind that this is a summarized version of this patient's hospital stay. If you need more information, please feel free to call me at [phone] or please obtain full medical records. TIME SPENT: Approximately 40 minutes was spent to complete this discharge. [id number] #: [id number] MTDD
== END 2019-04-15 11:55 | disposition home or self-care (01) ==
LOC: ED 20:43 → MED 04-14 02:37
PROVIDERS: ADMIT Hospitalist; ATTEND Internal Medicine
DX: J44.1 Chronic obstructive pulmonary disease with (acute) exacerbation (principal); J20.9 Acute bronchitis, unspecified; J44.0 Chronic obstructive pulmonary disease with (acute) lower respiratory infection; J96.10 Chronic respiratory failure, unspecified whether with hypoxia or hypercapnia; G89.29 Other chronic pain; E03.9 Hypothyroidism, unspecified; F41.9 Anxiety disorder, unspecified; N32.81 Overactive bladder; K21.9 Gastro-esophageal reflux disease without esophagitis; Z79.82 Long term (current) use of aspirin; Z79.899 Other long term (current) drug therapy
CPT/HCPCS: 36415; 71045; 80048; 80053; 81003; 83605; 84484; 85025; 85610; 85730; 87040; 93005; 96365; 96372; 96375; 99285; A9270-GY; G0378; J0456; J0696; J1644; J2930; J7512; J7611